=== PATIENT | male | born 1960 | race Caucasian/White ===

== ENCOUNTER 2018-03-07 11:29 | Inpatient (IN) | payer BC ==
--- NOTE | 2018-03-07 12:16 | RAD ---
HISTORY: chest pain COMPARISON: No prior. TECHNIQUE: Chest, one view. FINDINGS: Examination limited by habitus and hypoinflation. LUNGS: No focal consolidation. Please note that chest x-ray has limited sensitivity for the detection of pulmonary masses. PLEURA: No significant pleural effusion identified. No definite pneumothorax . CARDIOVASCULAR: Enlargement of the cardiomediastinal silhouette. No atherosclerotic calcification identified. OSSEOUS STRUCTURES: No acute osseous abnormality identified. VISUALIZED UPPER ABDOMEN: Unremarkable. OTHER FINDINGS: None. IMPRESSION: Hypoinflation. Enlargement of the cardiomediastinal silhouette. Mediastinal enlargement of unclear etiology. Recommend CT of the chest with IV contrast if indicated.
[2018-03-07 12:17] LABS: BASO # 0.1 K/uL (0.0-0.2); BASO % 0.7 % (0.0-2.0); EOS # 0.1 K/uL (0.0-0.7); EOS % 1.4 % (0.0-4.0); LYMPH # 2.4 K/uL (1.0-4.3); LYMPH % 23.7 % (20.0-40.0); MEAN CELL VOLUME 88.7 fL (80.0-94.0); MEAN CORPUSCULAR HEMOGLOBIN 29.9 pg (27.0-31.0); MEAN CORPUSCULAR HGB CONC 33.8 g/dL (33.0-37.0); MONO # 0.9 K/uL (0.0-0.8); NEUT # 6.6 K/uL (1.8-7.0); NEUT % 65.2 % (50.0-75.0); NRBC % 0.2 % (0.0-2.0); RBC 5.36 Mil/uL (4.40-5.90); RED CELL DISTRIBUTION WIDTH 13.4 % (11.5-14.5); WHITE BLOOD COUNT 10.1 K/uL (4.8-10.8)
[2018-03-07 12:43] LABS: ALB/GLOB RATIO 1.5 (1.0-2.1); ALBUMIN 4.3 g/dL (3.5-5.0); ALT/SGPT 28 U/L (21-72); AST/SGOT 28 U/L (17-59); BLOOD UREA NITROGEN 19 mg/dL (9-20); CALCIUM 9.6 mg/dl (8.6-10.4); GFR NON-AFRICAN AMERICAN > 60
[2018-03-07 12:54] LABS: B-TYPE NATRIURETIC PEPTIDE 216 pg/mL (0-900)
--- NOTE | 2018-03-07 12:54 | CT ---
Date of service: 03/07/2018 PROCEDURE: CT HEAD WITHOUT CONTRAST. HISTORY: r/o ICH COMPARISON: None available. TECHNIQUE: Axial computed tomography images were obtained through the head/brain without intravenous contrast. Radiation dose: Total exam DLP = 1197.76 mGy-cm. This CT exam was performed using one or more of the following dose reduction techniques: Automated exposure control, adjustment of the mA and/or kV according to patient size, and/or use of iterative reconstruction technique. FINDINGS: HEMORRHAGE: No intracranial hemorrhage. BRAIN: Tucker-white matter differentiation is preserved. There is no mass, mass effect or abnormal extra-axial fluid collection. There is no territorial infarction. The midline sagittal structures are normal. VENTRICLES: The ventricles are normal in size, shape and configuration. CALVARIUM: There is no calvarial fracture or extracranial soft tissue swelling. PARANASAL SINUSES: Predominantly clear. MASTOID AIR CELLS: Predominantly clear. OTHER FINDINGS: None. IMPRESSION: No acute intracranial abnormality.
--- NOTE | 2018-03-07 15:22 | C.PDOC ---
History Of Present Illness 57 y/o male sent to ED by PMD for evaluation of elevated blood pressure and chest pain since yesterday until this morning. Upon arrival to ED complains of minimal headache and admits to non compliant with oral blood pressure medicati on. Patient currently denies fever, chills, chest pain, cough, nausea, vomiting or any other complaints at this time. Chief Complaint (Nursing): Chest Pain History Per: Patient History/Exam Limitations: no limitations Onset/Duration Of Symptoms: Days Current Symptoms Are (Timing): Still Present Past Medical History Reviewed: Historical Data, Nursing Documentation, Vital Signs Vital Signs: Last Vital Signs Temp 98.5 F 03/07/18 11:39 Pulse 49 L 03/07/18 15:18 Resp 12 03/07/18 15:18 BP 220/120 H 03/07/18 15:18 Pulse Ox 100 03/07/18 15:18 - Medical History PMH: HTN Surgical History: No Surg Hx Family History: States: No Known Family Hx - Social History Hx Alcohol Use: No Hx Substance Use: No - Immunization History Hx Tetanus Toxoid Vaccination: No Hx Influenza Vaccination: No Hx Pneumococcal Vaccination: No Review Of Systems Constitutional: Negative for: Fever, Chills Cardiovascular: Negative for: Chest Pain Respiratory: Negative for: Cough, Shortness of Breath Gastrointestinal: Negative for: Nausea, Vomiting, Abdominal Pain Neurological: Positive for: Headache. Negative for: Weakness, Numbness Physical Exam - Physical Exam Appears: Non-toxic, No Acute Distress Skin: Warm, Dry, No Rash Head: Atraumatic, Normacephalic Eye(s): bilateral: Normal Inspection Oral Mucosa: Moist Neck: Normal ROM, Supple Cardiovascular: Rhythm Regular Respiratory: Normal Breath Sounds, No Rales, No Rhonchi, No Wheezing Gastrointestinal/Abdominal: Soft, No Tenderness, No Guarding, No Rebound Extremity: Normal ROM, No Pedal Edema, Capillary Refill (<2 seconds) Neurological/Psych: Oriented x3, Normal Speech, Normal Cognition ED Course And Treatment - Laboratory Results Result Diagrams: 03/07/18 12:09 03/07/18 12:09 ECG: Interpreted By Me, Viewed By Me ECG Rhythm: Sinus Rhythm Interpretation Of ECG: Left axis deviation, Normal intervals, Normal access Rate From EC (BPM) O2 Sat by Pulse Oximetry: 100 (RA) Pulse Ox Interpretation: Normal Progress Note: Spoke to Dr. Rivera, blood pressure down minimally, po medication therapy. 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 Disposition - Disposition Disposition: HOSPITALIZED Disposition Time: 13:25 Condition: FAIR - Clinical Impression Clinical Impression: Uncontrolled hypertension - Scribe Statement The provider has reviewed the documentation as recorded by the Scribconnor Sánchez All medical record entries made by the Scribe were at my direction and personally dictated by me. I have reviewed the chart and agree that the record accurately reflects my personal performance of the history, physical exam, me dical decision making, and the department course for this patient. I have also personally directed, reviewed, and agree with the discharge instructions and disposition.
--- NOTE | 2018-03-07 15:25 | CP.PCM.HP ---
History of Present Illness - History of Present Illness History of Present Illness: 57 y.o. male with PMH Hypertension came to clinic today due not feeling well and ran out of medication patient reports last chest pain was 2 am today , heavy in characyed no radiation . no dizzines, no syncope no abdominal paiun no vomiting no nausea. he took aspirin, and a BP medicine. He does not feel well, , did not go to work and and came to clinic , his BP was on the 200s repeatedly , no chest pain at that moment, was ambulatory , conversant - patient had another asoirin , and decide to send to ER , In ER, patient was given medications, and had difficulty controlling BP, heart rate ion the 50's, firts TAVON was negative,CT head negative, patient was admitted for further evaluation and management . PMH hypertension- with history of episodic Uncontrolled BP due to non compliance Social lives with family non ETOH non smoker Surgery Present on Admission - Present on Admission Any Indicators Present on Admission: No History of DVT/PE: No History of Uncontrolled Diabetes: No Urinary Catheter: No Decubitus Ulcer Present: No Review of Systems - Review of Systems Systems not reviewed;Unavailable: Unstable Vital Signs (very high BP ) - Constitutional Constitutional: absent: Chills, Fever, Weight Loss, Weakness - EENT Eyes: absent: Blurred Vision, Other Visual Disturbances Nose/Mouth/Throat: absent: Sinus Pain, Sinus Pressure, Sore Throat - Cardiovascular Cardiovascular: Chest Pain, Slow Heart Rate. absent: Dyspnea, Dyspnea on Exertion, Edema, Pedal Edema, Syncope - Respiratory Respiratory: absent: Cough, Dyspnea on Exertion, Pain on Inspiration, Chest Congestion - Gastrointestinal Gastrointestinal: absent: Abdominal Pain, Bloating, Constipation, Diarrhea, Dysphagia, Vomiting - Genitourinary Genitourinary: absent: Difficulty Urinating, Urinary Frequency - Musculoskeletal Musculoskeletal: absent: Abnormal Gait, Back Pain, Deformity, Joint Swelling, Limited Range of Motion, Stiffness - Integumentary Integumentary: absent: Rash, Skin Ulcer, Sores, Jaundice - Neurological Neurological: absent: Abnormal Gait, Abnormal Hearing, Abnormal Movements, Abnormal Speech, Behavioral Changes, Convulsions, Dizziness, Syncope, Other Visual Disturbances - Psychiatric Psychiatric: absent: Auditory Hallucinations, Behavioral Changes, Confusion, Depression - Endocrine Endocrine: absent: Cold Intolorance, Excessive Sweating, Polydipsia, Polyuria - Hematologic/Lymphatic Hematologic: absent: Easy Bleeding, Easy Bruising Past Patient History - Past Medical History & Family History Past Medical History?: Yes - Past Social History Smoking Status: Never Smoked - CARDIAC Hx Cardiac Disorders: Yes Hx Hypertension: Yes - PSYCHIATRIC Hx Substance Use: No - SURGICAL HISTORY Hx Surgeries: Yes Hx Orthopedic Surgery: Yes (LEFT TKR) Meds Allergies/Adverse Reactions: Allergies Allergy/AdvReac Type Severity Reaction Status Date / Time No Known Allergies Allergy Verified 03/07/18 11:43 Physical Exam - Constitutional Appears: Non-toxic (but is quiet , conversant answers questions appropiriately ), No Acute Distress - Head Exam Head Exam: ATRAUMATIC, NORMOCEPHALIC - Eye Exam Eye Exam: absent: Nystagmus - ENT Exam ENT Exam: Mucous Membranes Moist - Neck Exam Neck exam: Positive for: Full Rom. Negative for: Tenderness - Respiratory Exam Respiratory Exam: Clear to Auscultation Bilateral, NORMAL BREATHING PATTERN - Cardiovascular Exam Cardiovascular Exam: Bradycardia, REGULAR RHYTHM - GI/Abdominal Exam GI & Abdominal Exam: Normal Bowel Sounds, Soft. absent: Tenderness - Extremities Exam Extremities exam: Positive for: full ROM, joint swelling, normal inspection, pedal edema, pedal pulses present. Negative for: tenderness - Back Exam Back exam: NORMAL INSPECTION. absent: rash noted - Neurological Exam Neurological exam: Alert, Normal Gait, Oriented x3, Reflexes Normal - Psychiatric Exam Psychiatric exam: Normal Affect, Normal Mood - Skin Skin Exam: Intact, Normal Color Results - Vital Signs Recent Vital Signs: Last Vital Signs Temp 98.5 F 03/07/18 11:39 Pulse 49 L 03/07/18 15:18 Resp 12 03/07/18 15:18 BP 220/120 H 03/07/18 15:18 Pulse Ox 100 03/07/18 15:18 - Labs Result Diagrams: 03/08/18 05:19 03/08/18 05:19 Labs: Laboratory Results - last 24 hr 03/07/18 03/07/18 12:09 12:09 WBC 10.1 RBC 5.36 Hgb 16.0 Hct 47.5 MCV 88.7 MCH 29.9 MCHC 33.8 RDW 13.4 Plt Count 309 MPV 9.0 Neut % (Auto) 65.2 Lymph % (Auto) 23.7 [place] % (Auto) 9.0 Eos % (Auto) 1.4 Baso % (Auto) 0.7 Neut # (Auto) 6.6 Lymph # (Auto) 2.4 [place] # (Auto) 0.9 H Eos # (Auto) 0.1 Baso # (Auto) 0.1 Sodium 139 Potassium 4.2 Chloride 96 L Carbon Dioxide 31 H Anion Gap 16 BUN 19 Creatinine 1.1 Est GFR ( Amer) > 60 Est GFR (Non-Af Amer) > 60 Random Glucose 113 H Calcium 9.6 Total Bilirubin 0.5 AST 28 ALT 28 Alkaline Phosphatase 109 Troponin I 0.0590 NT-Pro-B Natriuret Pep 216 Total Protein 7.3 Albumin 4.3 Globulin 3.0 Albumin/Globulin Ratio 1.5 Assessment & Plan - Assessment and Plan (Free Text) Assessment: 57 y.o. with PMH Hypertension admitted for Accelerated Hypertension, uncontrolled hypertension from non compliance medication adjustment , Patient education Diet Chest pain- TAVON, echo cardio consult , Abnormal CXR enlargement of mediastinum-CT chest with contrast , Pulmo consult due to above concern will admit patient to ICU DVT prophylaxis GI prophylaxis Heart healthy diet - Date & Time Date: 03/07/18 Time: 15:40
[2018-03-07] MEDS ORDERED: Iodixanol 320 MG/ML 100 ML BOTTLE IV ONE (15:32)
--- NOTE | 2018-03-07 16:28 | CT ---
Date of service: 03/07/2018 CT Dissection protocol Indication: elevated BP, r/o dissection Technique: Contiguous axial images were obtained through the chest/abdomen/pelvis without and with intravenous contrast enhancement utilizing dissection protocol technique. Sagittal and coronal reconstructions were generated and reviewed. This CT exam was performed using 1 or more of the following dose reduction techniques: Automated exposure control, adjustment of the MAA and/or kV according to patient size, and/or use of iterative reconstruction technique. Radiation dose (DLP): 1944.62 MGy-cm. Contrast: 100 mL Visipaque IV Findings: Visualized portions of the inferior thyroid gland appear unremarkable. The mediastinal and hilar vascular structures appear within normal limits. The heart appears within normal limits of size. Dense coronary artery calcifications. No evidence of thoracic aorta dissection or aneurysmal dilatation. Uncoiled aorta likely resulted in widened appearance by chest x-ray. No focal consolidation. No pleural effusion. No pneumothorax. 5 mm right lower lobe calcified granuloma. Scattered atherosclerotic calcifications of the aorta and branches. There is normal course and contour of the abdominal aorta and common iliac arteries. The celiac artery origin appears patent. The superior mesenteric artery origin appears patent. The inferior mesenteric artery origin appears patent. Bilateral renal arteries appear patent. 5 mm hepatic hypodensity, too small to characterize; statistically likely cyst or hemangioma. Cholecystectomy clips. The pancreas, spleen, and adrenal glands appear unremarkable. The kidneys enhance symmetrically without evidence of hydronephrosis or obstructing renal calculi. No enlarged abdominal lymphadenopathy is identified. The stomach is nondistended. Visualized bowel loops appear within normal limits of caliber without evidence of obstruction. The appendix appears normal. No inflammatory changes are seen in the right lower quadrant to suggest acute appendicitis. No definite free air. Partially imaged urinary bladder appears grossly unremarkable. No significant pelvic free fluid is identified. Mild degenerative changes. Intervertebral disc space narrowing and vacuum disc phenomenon at L5-S1. Impression: No acute findings. Incidental findings as above.
--- NOTE | 2018-03-07 16:45 | CP.PCM.CON ---
History of Present Illness - History of Present Illness History of Present Illness: PGY-1 ICU Consult note for Dr. Armas Patient is a 57 year old male with PMHx of HTN and HLD presenting with hypertension. Patient states that he went to his PMD today for medication refill and was found to have a SBP above 200. Patient was instructed to go to the ED by his PMD. Patient admits to be non-compliant with his home medications. Patient denies headaches, dizziness, changes in vision, changes in hearing, fevers, chills, SOB, chest pain, palpitations, abdominal pain, nausea, vomiting, diarrhea, or urinary symptoms. PMD: Dr. Goins PMHx: HTN and HLD PSHx: Knee replacement surgery in 2017 Social Hx: denies smoking and drug use. Occasionally drinks beer. 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 Family Hx: Mom had HTN and of an WI at age 46 Allergies: NKDA Medications: ASA 81mg QD, Valsartan 5mg QD, Norvasc 10mg QD, Clonidine 0.1mg TID, Hydralazine 10mg QD, Tribenzor 40-10-25mg Review of Systems - Review of Systems All systems: reviewed and no additional remarkable complaints except Past Patient History - Past Medical History & Family History Past Medical History?: Yes - Past Social History Smoking Status: Never Smoked - CARDIAC Hx Cardiac Disorders: Yes Hx Hypertension: Yes - PSYCHIATRIC Hx Substance Use: No - SURGICAL HISTORY Hx Surgeries: Yes Hx Orthopedic Surgery: Yes (LEFT TKR) Meds Allergies/Adverse Reactions: Allergies Allergy/AdvReac Type Severity Reaction Status Date / Time No Known Allergies Allergy Verified 03/07/18 11:43 - Medications Medications: Current Medications Enoxaparin Sodium (Lovenox) 30 mg SC DAILY AMANDO Pantoprazole Sodium (Protonix Ec Tab) 40 mg PO DAILY AMANDO Physical Exam - Constitutional Appears: Well, Non-toxic, No Acute Distress - Head Exam Head Exam: ATRAUMATIC, NORMOCEPHALIC - Eye Exam Eye Exam: EOMI, Normal appearance - ENT Exam ENT Exam: Mucous Membranes Moist - Neck Exam Neck exam: Positive for: Normal Inspection - Respiratory Exam Respiratory Exam: Clear to Auscultation Bilateral, NORMAL BREATHING PATTERN. absent: Accessory Muscle Use, Decreased Breath Sounds, Rales, Rhonchi, Wheezes - Cardiovascular Exam Cardiovascular Exam: REGULAR RHYTHM, +S1, +S2. absent: Tachycardia, Gallop, Rubs, Systolic Murmur - GI/Abdominal Exam GI & Abdominal Exam: Normal Bowel Sounds, Soft. absent: Distended, Tenderness - Extremities Exam Extremities exam: Positive for: normal inspection - Neurological Exam Neurological exam: Alert, CN II-XII Intact, Oriented x3 - Psychiatric Exam Psychiatric exam: Normal Affect, Normal Mood - Skin Skin Exam: Dry, Intact, Normal Color, Warm Results - Vital Signs Recent Vital Signs: Last Vital Signs Temp 98.5 F 03/07/18 11:39 Pulse 49 L 03/07/18 15:18 Resp 12 03/07/18 15:18 BP 220/120 H 03/07/18 15:18 Pulse Ox 100 03/07/18 15:33 - Labs Result Diagrams: 03/07/18 12:09 03/07/18 12:09 Labs: Laboratory Results - last 24 hr 03/07/18 03/07/18 12:09 12:09 WBC 10.1 RBC 5.36 Hgb 16.0 Hct 47.5 MCV 88.7 MCH 29.9 MCHC 33.8 RDW 13.4 Plt Count 309 MPV 9.0 Neut % (Auto) 65.2 Lymph % (Auto) 23.7 [place] % (Auto) 9.0 Eos % (Auto) 1.4 Baso % (Auto) 0.7 Neut # (Auto) 6.6 Lymph # (Auto) 2.4 [place] # (Auto) 0.9 H Eos # (Auto) 0.1 Baso # (Auto) 0.1 Sodium 139 Potassium 4.2 Chloride 96 L Carbon Dioxide 31 H Anion Gap 16 BUN 19 Creatinine 1.1 Est GFR ( Amer) > 60 Est GFR (Non-Af Amer) > 60 Random Glucose 113 H Calcium 9.6 Total Bilirubin 0.5 AST 28 ALT 28 Alkaline Phosphatase 109 Troponin I 0.0590 NT-Pro-B Natriuret Pep 216 Total Protein 7.3 Albumin 4.3 Globulin 3.0 Albumin/Globulin Ratio 1.5 Assessment & Plan - Assessment and Plan (Free Text) Assessment: Patient is a 57 year old male with PMHx of HTN and HLD presenting with hypertension. Plan: Neuro: R/o CVA - Patient is AAO X 3 - Head CT: No acute intracranial abnormality Cardiovascular: HTN; non-compliant with home medications - Patient will be admitted to telemetry floor - On Admission: SBP: 230-240, DBP: 130-145 - HR: 50's - Cardiology consulted, Dr. Zuniga - In ED was given: ASA 325mg PO, Losartan 100mg PO, Norvasc 10mg PO, Clonidine 0.1mg and 0.2mg, Hydralazine 10mg and 25mg PO, HTZ 25mg PO - CT Chest/dissection studies: No acute findings. Incidental findings as above. - CXR: Hypoinflation. Enlargement of the cardiomediastinal silhouette. Mediastinal enlargement of unclear etiology. Pulm: - No acute issues Renal: - No acute issues - BUN/Cr: WNL GI: - No acute issues - AST/ALT: WNL Heme: - No acute issues Prophylaxis: - Protonix 40mg PO QD - Lovenox 30mg SC QD Case discussed with Dr. Chanda Lozoya, PGY-1
--- NOTE | 2018-03-07 16:54 | CP.PCM.CON ---
<Yazmin Chappell - Last Filed: 03/07/18 19:02> History of Present Illness - History of Present Illness History of Present Illness: Cardiology Consult Note This is a 57 year old male with past medical history of hypertension (non- compliant on 5 medications) and hyperlipidemia, referred to our service by Dr. Goins, for chest pain. Patient reports he is noncompliant with his medications, taking it when he remembers. He did not take it for the past two days as per wi fe. Patient started to have severe headaches associated with dizziness, nausea, yesterday, associated with sharp, intermittent chest pain. Today he went to visit his PMD, he was instructed to come to the ED due to his elevated blood pressures. Denied any current dizziness, confusion, chest pain, abdominal pain, or urinary complaints. PMHx: As noted above PSHx: Knee replacement surgery Meds: ASA 81mg QD, Valsartan 5mg QD, Norvasc 10mg QD, Clonidine 0.1mg TID, Hydralazine 10mg QD, Tribenzor 40-10-25mg All: NKDA SHx: Denied any smoking or illicit drug use, admits to social alcohol use: beer on weekends FHx: Significant for heart disease: hypertension and CT in mother (age 46) Review of Systems - Constitutional Constitutional: absent: Chills, Fever - EENT Eyes: Blurred Vision, Change in Vision Ears: absent: Ear Discharge, Ear Pain, Tinnitus Nose/Mouth/Throat: absent: Nasal Discharge, Dry Mouth, Hoarsness - Cardiovascular Cardiovascular: absent: Chest Pain, Chest Pain at Rest, Chest Pain with Activity, Dyspnea, Leg Edema, Pedal Edema, Radiating Pain - Respiratory Respiratory: absent: Cough, Dyspnea, Wheezing - Gastrointestinal Gastrointestinal: absent: Abdominal Pain, Nausea, Vomiting - Genitourinary Genitourinary: absent: Dysuria, Hematuria, Urinary Hesitance - Musculoskeletal Musculoskeletal: absent: Abnormal Gait, Back Pain - Neurological Neurological: absent: Abnormal Gait, Loss of Vision, Syncope, Weakness - Psychiatric Psychiatric: absent: Anxiety, Depression, Suicidal Ideation, Visual Hallucinations - Hematologic/Lymphatic Hematologic: absent: Easy Bleeding, Easy Bruising, Lymphadenopathy Past Patient History - Past Medical History & Family History Past Medical History?: Yes - Past Social History Smoking Status: Never Smoked - CARDIAC Hx Cardiac Disorders: Yes Hx Hypertension: Yes - PSYCHIATRIC Hx Substance Use: No - SURGICAL HISTORY Hx Surgeries: Yes Hx Orthopedic Surgery: Yes (LEFT TKR) Meds Allergies/Adverse Reactions: Allergies Allergy/AdvReac Type Severity Reaction Status Date / Time No Known Allergies Allergy Verified 03/07/18 11:43 - Medications Medications: Current Medications Enoxaparin Sodium (Lovenox) 30 mg SC DAILY [facility] Pantoprazole Sodium (Protonix Ec Tab) 40 mg PO DAILY [facility] Physical Exam - Constitutional Appears: No Acute Distress - Head Exam Head Exam: NORMAL INSPECTION, NORMOCEPHALIC - Eye Exam Eye Exam: EOMI, Normal appearance, PERRL Pupil Exam: NORMAL ACCOMODATION - ENT Exam ENT Exam: Mucous Membranes Moist - Respiratory Exam Respiratory Exam: Clear to Auscultation Bilateral, NORMAL BREATHING PATTERN. absent: Decreased Breath Sounds, Rales - Cardiovascular Exam Cardiovascular Exam: +S1, +S2. absent: JVD, Systolic Murmur - GI/Abdominal Exam GI & Abdominal Exam: Normal Bowel Sounds, Soft. absent: Distended, Tenderness - Extremities Exam Extremities exam: Positive for: normal inspection, pedal pulses present. Negative for: pedal edema, tenderness - Neurological Exam Neurological exam: Alert, Oriented x3 - Psychiatric Exam Psychiatric exam: Normal Affect, Normal Mood - Skin Skin Exam: Dry, Intact, Normal Color, Warm Results - Vital Signs Recent Vital Signs: Last Vital Signs Temp 98.5 F 03/07/18 11:39 Pulse 49 L 03/07/18 15:18 Resp 12 03/07/18 15:18 BP 220/120 H 03/07/18 15:18 Pulse Ox 100 03/07/18 15:33 - Labs Result Diagrams: 03/07/18 12:09 03/07/18 12:09 Labs: Laboratory Results - last 24 hr 03/07/18 03/07/18 12:09 12:09 WBC 10.1 RBC 5.36 Hgb 16.0 Hct 47.5 MCV 88.7 MCH 29.9 MCHC 33.8 RDW 13.4 Plt Count 309 MPV 9.0 Neut % (Auto) 65.2 Lymph % (Auto) 23.7 [place] % (Auto) 9.0 Eos % (Auto) 1.4 Baso % (Auto) 0.7 Neut # (Auto) 6.6 Lymph # (Auto) 2.4 [place] # (Auto) 0.9 H Eos # (Auto) 0.1 Baso # (Auto) 0.1 Sodium 139 Potassium 4.2 Chloride 96 L Carbon Dioxide 31 H Anion Gap 16 BUN 19 Creatinine 1.1 Est GFR ( Amer) > 60 Est GFR (Non-Af Amer) > 60 Random Glucose 113 H Calcium 9.6 Total Bilirubin 0.5 AST 28 ALT 28 Alkaline Phosphatase 109 Troponin I 0.0590 NT-Pro-B Natriuret Pep 216 Total Protein 7.3 Albumin 4.3 Globulin 3.0 Albumin/Globulin Ratio 1.5 Assessment & Plan - Assessment and Plan (Free Text) Plan: Hypertensive Urgency Imaging: - EKG: NSR 77BPM, left axis deviation - Head CT: unremarkable - CT Chest: no dissection noted Management: - Continue with home medications: ASA, Norvasc 10mg, Losartan 100mg, HCTZ 25mg, Hydralazine 10mg QID, Clonidine 0.1mg PO TID - Hydralazine 10mg IVP Q6H PRN if SBP > 160, hold if HR < 60 - Stressed the importance of medication compliance, as it puts patient at risk for stoke, CT, dissection, renal failure, etc. - ECHO: ordered, pending results Case discussed with Yazmin Hinojosa DO, PGY2 <Jose Zuniga - Last Filed: 03/07/18 22:15> Meds - Medications Medications: Current Medications Amlodipine Besylate (Norvasc) 10 mg PO DAILY [facility] Aspirin (Aspirin Chewable) 81 mg PO DAILY [facility] Clonidine HCl (Catapres) 0.1 mg PO TID [facility] Enoxaparin Sodium (Lovenox) 30 mg SC DAILY [facility] Hydralazine HCl (Apresoline) 10 mg IVP Q6H PRN PRN Reason: Systolic Blood Pressure Hydralazine HCl (Apresoline) 10 mg PO QID [facility] Hydrochlorothiazide (Hydrodiuril) 25 mg PO DAILY [facility] Losartan Potassium (Cozaar) 100 mg PO DAILY [facility] Pantoprazole Sodium (Protonix Ec Tab) 40 mg PO DAILY [facility] Results - Vital Signs Recent Vital Signs: Last Vital Signs Temp 97 F L 03/07/18 18:49 Pulse 90 03/07/18 18:49 Resp 20 03/07/18 18:49 BP 148/107 H 03/07/18 18:49 Pulse Ox 97 03/07/18 18:49 - Labs Result Diagrams: 03/07/18 12:09 03/07/18 12:09 Labs: Laboratory Results - last 24 hr 03/07/18 03/07/18 12:09 12:09 WBC 10.1 RBC 5.36 Hgb 16.0 Hct 47.5 MCV 88.7 MCH 29.9 MCHC 33.8 RDW 13.4 Plt Count 309 MPV 9.0 Neut % (Auto) 65.2 Lymph % (Auto) 23.7 [place] % (Auto) 9.0 Eos % (Auto) 1.4 Baso % (Auto) 0.7 Neut # (Auto) 6.6 Lymph # (Auto) 2.4 [place] # (Auto) 0.9 H Eos # (Auto) 0.1 Baso # (Auto) 0.1 Sodium 139 Potassium 4.2 Chloride 96 L Carbon Dioxide 31 H Anion Gap 16 BUN 19 Creatinine 1.1 Est GFR ( Amer) > 60 Est GFR (Non-Af Amer) > 60 Random Glucose 113 H Calcium 9.6 Total Bilirubin 0.5 AST 28 ALT 28 Alkaline Phosphatase 109 Troponin I 0.0590 NT-Pro-B Natriuret Pep 216 Total Protein 7.3 Albumin 4.3 Globulin 3.0 Albumin/Globulin Ratio 1.5 Assessment & Plan - Assessment and Plan (Free Text) Plan: Patient seen and evaluated in person by me. Plan of care d/w the medical doctor nuclear medicine and as documented
[2018-03-07 18:51] VITALS: RESP 20
[2018-03-07 23:06] LABS: CK-MB 0.56 ng/mL (0.0-3.38); TROPONIN I 0.049 ng/mL (0.00-0.120)
[2018-03-08 05:35] LABS: BASO # 0.1 K/uL (0.0-0.2); BASO % 0.6 % (0.0-2.0); EOS # 0.3 K/uL (0.0-0.7); EOS % 3.4 % (0.0-4.0); HEMOGLOBIN 15.6 g/dL (12.0-18.0); LYMPH # 2.8 K/uL (1.0-4.3); LYMPH % 27.1 % (20.0-40.0); MEAN CELL VOLUME 88.2 fL (80.0-94.0); MEAN CORPUSCULAR HEMOGLOBIN 29.9 pg (27.0-31.0); MEAN PLATELET VOLUME 9.1 fL (7.2-11.7); MONO # 0.9 K/uL (0.0-0.8); MONO % 9.1 % (0.0-10.0); NEUT # 6.1 K/uL (1.8-7.0); NEUT % 59.8 % (50.0-75.0); NRBC % 0.1 % (0.0-2.0); RBC 5.21 Mil/uL (4.40-5.90); RED CELL DISTRIBUTION WIDTH 13.5 % (11.5-14.5); WHITE BLOOD COUNT 10.2 K/uL (4.8-10.8)
[2018-03-08 06:00] LABS: CK-MB 0.42 ng/mL (0.0-3.38); TROPONIN I 0.033 ng/mL (0.00-0.120)
[2018-03-08 06:44] LABS: ALB/GLOB RATIO 1.4 (1.0-2.1); ALBUMIN 3.9 g/dL (3.5-5.0); ALT/SGPT 30 U/L (21-72); AST/SGOT 17 U/L (17-59); BLOOD UREA NITROGEN 18 mg/dL (9-20); CALCIUM 9.2 mg/dl (8.6-10.4); GFR NON-AFRICAN AMERICAN > 60; HDL CHOLESTEROL 27 mg/dL (30-70)
[2018-03-08 06:53] LABS: LDL CHOLESTEROL 152 mg/dL (0-129)
[2018-03-08] MEDS: Enoxaparin 30 mg Syringe SC SCH (10:26)
[2018-03-08] MEDS: Pantoprazole 40 mg EC Tab PO SCH (10:27)
--- NOTE | 2018-03-08 12:23 | CP.PCM.PN ---
Subjective - Date & Time of Evaluation Date of Evaluation: 03/08/18 Time of Evaluation: 12:40 - Subjective Subjective: chart review BP- noted , mild improvement no unusual event CT chest negative labs noted high cholesterol Discussion with cardio and Pulmo Renal called for further mangement patient seen denies any headcahe chest pain, dizziness discussion of condition and plan, further discussion of compliance ambulatory , feeding, Objective - Vital Signs/Intake and Output Vital Signs (last 24 hours): Temp Pulse Resp BP Pulse Ox 97.5 F L 58 L 20 177/104 H 98 03/08/18 08:03 03/08/18 08:03 03/08/18 08:03 03/08/18 08:03 03/08/18 08:03 - Medications Medications: Current Medications Amlodipine Besylate (Norvasc) 10 mg PO DAILY [facility] Last Admin: 03/08/18 10:27 Dose: 10 mg Aspirin (Aspirin Chewable) 81 mg PO DAILY [facility] Last Admin: 03/08/18 10:27 Dose: 81 mg Clonidine HCl (Catapres) 0.1 mg PO TID [facility] Last Admin: 03/08/18 10:27 Dose: 0.1 mg Enoxaparin Sodium (Lovenox) 30 mg SC DAILY [facility] Last Admin: 03/08/18 10:26 Dose: 30 mg Hydralazine HCl (Apresoline) 10 mg IVP Q6H PRN PRN Reason: Systolic Blood Pressure Hydralazine HCl (Apresoline) 100 mg PO BID [facility] Hydrochlorothiazide (Hydrodiuril) 25 mg PO DAILY [facility] Losartan Potassium (Cozaar) 100 mg PO DAILY [facility] Last Admin: 03/08/18 10:27 Dose: 100 mg Pantoprazole Sodium (Protonix Ec Tab) 40 mg PO DAILY [facility] Last Admin: 03/08/18 10:27 Dose: 40 mg - Labs Labs: 03/08/18 05:19 03/08/18 05:19 - Constitutional Appears: Non-toxic, No Acute Distress - Head Exam Head Exam: ATRAUMATIC, NORMOCEPHALIC - Eye Exam Eye Exam: Normal appearance. absent: Nystagmus - ENT Exam ENT Exam: Mucous Membranes Moist - Neck Exam Neck Exam: Full ROM. absent: Tenderness - Respiratory Exam Respiratory Exam: Clear to Ausculation Bilateral, NORMAL BREATHING PATTERN - Cardiovascular Exam Cardiovascular Exam: REGULAR RHYTHM - GI/Abdominal Exam GI & Abdominal Exam: Soft, Normal Bowel Sounds. absent: Tenderness - Extremities Exam Extremities Exam: Full ROM. absent: Joint Swelling, Pedal Edema, Tenderness - Back Exam Back Exam: Full ROM. absent: rash noted, tenderness - Neurological Exam Neurological Exam: Alert, Awake, Normal Gait, Oriented x3 - Psychiatric Exam Psychiatric exam: Normal Affect, Normal Mood - Skin Skin Exam: Intact, Normal Color. absent: Rash Assessment and Plan - Assessment and Plan (Free Text) Assessment: Patient with uncontrolled hypertension from non compliance, but with difficulty controlling despite medication adjustment Renal consulted for further evaluation currently asymptomatic, aware of condition Compliance discussion Work up for other etiology /pheo/ ongoing
--- NOTE | 2018-03-08 15:08 | CP.PCM.CON ---
History of Present Illness - History of Present Illness History of Present Illness: Nephrology Consultation Note: Assessment: Stable uncontrolled severe HTN with emergency, non compliance obesity chest pain Plan No acute need for renal replacement therapy at this time. Hypertension control with meds as ordered. Maintain hemodynamics stable. Avoid hypotension. Patient on ARB continue same. on multiple BP meds. increased hydralazine Monitor Input/Output, daily weights and renal function with basic metabolic panel Check urine analysis, spot protein/creatinine, albumin/creatinine ratio Secondary HTN work up with plasma renin/aldosterone, plasma metanephrine pt was educated abut need for compliance to meds and follow up. he was informed about risks and consequences of uncontrolled HTN including but not limited to stroke/paralysis, heart attack/failure, kidney failure/dialysis need, car diovascular disease disease and . Pt's son was in room during the discussion Dose meds/antibiotics for GFR>60 Glycemic control Further work up/management as per primary team Thanks for allowing me to participate in care of your patient. Will follow patient with you. Please call if any Qs Dr Mango Castaneda Office: [phone] Chief Complaint; high Blood pressure Reason for consult: HTN emergency HPI: Pt is a 57 M with hx of hypertension (years) but non compliant to meds presented with complaints of chest pain and found to have severe uncontrolled HTN Denies OTC/herbal meds or NSAIDs No recent iodinated contrast exposure. non smoker/ no etoh or drugs. denies tobacco or licorice/decongestants feels better now. had headache and blurry vision earlier ROS: Cardiovascular: improved chest pain. Pulmonary: No shortness of breath Gastrointestinal: denies abdominal pain No nausea. No vomiting. Genitourinary: No pain while urinating. Denies blood in urine. All other negative except as mentioned in HPI Physical Examination: General Appearance: Comfortable, in no acute respiratory distress, co-operative . Vitals reviewed and noted as below Head; Atraumatic, normocephalic ENT: no ulcers no thrush. Tongue is midline. Oropharynx: no rash or ulcers. EYES: Pupils are equal, round and reactive to light accommodation. Eye muscles and extraocular movement intact. Sclera is anicteric. Neck; supple no lymphadenopathy, no thyromegaly or bruit Lungs: Normal respiratory rate/effort. Breath sounds bilateral equal and clear Heart: Normal rate. s1s2 normal. No rub or gallop. Extremities: no edema. No varicose veins Neurological: Patient is alert, awake and oriented to person, place and time. No focal deficit. Strength bilateral appropriate and equal Skin: Warm and dry. Normal turgor. No rash. Palpitation: Normal elasticity for age Abdomen: Abdomen is soft. Bowel sounds +. There is no abdominal tenderness, no guarding/rigidity no organomegaly Psych: limited insight and normal affect/mood MSK: no joint tenderness or swelling. Digits and nails normal, no deformity : kidney or bladder not palpable Labs/imaging reviewed. Past medical history, past surgical history, family history, social history, allergy reviewed and noted as below Family hx: no hx of CKD. Rest non-contributory CTA: normal renal artery. normal adrenals tsh 1.9 Past Patient History - Past Medical History & Family History Past Medical History?: Yes - Past Social History Smoking Status: Never Smoked - CARDIAC Hx Cardiac Disorders: Yes Hx Hypertension: Yes - MUSCULOSKELETAL/RHEUMATOLOGICAL Hx Falls: No - PSYCHIATRIC Hx Substance Use: No - SURGICAL HISTORY Hx Surgeries: Yes Hx Orthopedic Surgery: Yes (LEFT TKR) - ANESTHESIA Hx Anesthesia: Yes Hx Anesthesia Reactions: No Hx Malignant Hyperthermia: No Has any member of the family had a problem w/ anesthesia?: No Meds Allergies/Adverse Reactions: Allergies Allergy/AdvReac Type Severity Reaction Status Date / Time No Known Allergies Allergy Verified 03/07/18 11:43 - Medications Medications: Current Medications Amlodipine Besylate (Norvasc) 10 mg PO DAILY [facility] Last Admin: 03/08/18 10:27 Dose: 10 mg Aspirin (Aspirin Chewable) 81 mg PO DAILY [facility] Last Admin: 03/08/18 10:27 Dose: 81 mg Clonidine HCl (Catapres) 0.1 mg PO TID [facility] Last Admin: 03/08/18 14:20 Dose: 0.1 mg Enoxaparin Sodium (Lovenox) 30 mg SC DAILY [facility] Last Admin: 03/08/18 10:26 Dose: 30 mg Hydralazine HCl (Apresoline) 100 mg PO BID [facility] Last Admin: 03/08/18 14:33 Dose: Not Given Hydrochlorothiazide (Hydrodiuril) 25 mg PO DAILY [facility] Last Admin: 03/08/18 10:57 Dose: 25 mg Losartan Potassium (Cozaar) 100 mg PO DAILY [facility] Last Admin: 03/08/18 10:27 Dose: 100 mg Pantoprazole Sodium (Protonix Ec Tab) 40 mg PO DAILY [facility] Last Admin: 03/08/18 10:27 Dose: 40 mg Rosuvastatin Calcium (Crestor) 10 mg PO [facility] Results - Vital Signs Recent Vital Signs: Last Vital Signs Temp 97.5 F L 03/08/18 08:03 Pulse 58 L 03/08/18 08:03 Resp 20 03/08/18 08:03 BP 177/104 H 03/08/18 08:03 Pulse Ox 98 03/08/18 08:03 - Labs Result Diagrams: 03/08/18 05:19 03/08/18 05:19 Labs: Laboratory Results - last 24 hr 03/07/18 03/08/18 03/08/18 22:24 05:19 05:19 WBC RBC Hgb Hct MCV MCH MCHC RDW Plt Count MPV Neut % (Auto) Lymph % (Auto) [place] % (Auto) Eos % (Auto) Baso % (Auto) Neut # (Auto) Lymph # (Auto) [place] # (Auto) Eos # (Auto) Baso # (Auto) Sodium 135 Potassium 3.7 Chloride 100 Carbon Dioxide 26 Anion Gap 14 BUN 18 Creatinine 1.2 Est GFR ( Amer) > 60 Est GFR (Non-Af Amer) > 60 Random Glucose 107 Hemoglobin A1c Calcium 9.2 Phosphorus 4.4 Magnesium 2.0 Total Bilirubin 0.7 AST 17 D ALT 30 Alkaline Phosphatase 121 Total Creatine Kinase 36 L 26 L CK-MB (Mass) 0.56 0.42 Troponin I 0.0490 0.0330 Total Protein 6.7 Albumin 3.9 Globulin 2.8 Albumin/Globulin Ratio 1.4 Triglycerides 227 H Cholesterol 220 H LDL Cholesterol Direct 152 H HDL Cholesterol 27 L Free T4 TSH 3rd Generation 1.95 03/08/18 03/08/18 03/08/18 05:19 05:19 05:19 WBC 10.2 RBC 5.21 Hgb 15.6 Hct 45.9 MCV 88.2 MCH 29.9 MCHC 34.0 RDW 13.5 Plt Count 286 MPV 9.1 Neut % (Auto) 59.8 Lymph % (Auto) 27.1 [place] % (Auto) 9.1 Eos % (Auto) 3.4 Baso % (Auto) 0.6 Neut # (Auto) 6.1 Lymph # (Auto) 2.8 [place] # (Auto) 0.9 H Eos # (Auto) 0.3 Baso # (Auto) 0.1 Sodium Potassium Chloride Carbon Dioxide Anion Gap BUN Creatinine Est GFR ( Amer) Est GFR (Non-Af Amer) Random Glucose Hemoglobin A1c 4.6 Calcium Phosphorus Magnesium Total Bilirubin AST ALT Alkaline Phosphatase Total Creatine Kinase CK-MB (Mass) Troponin I Total Protein Albumin Globulin Albumin/Globulin Ratio Triglycerides Cholesterol LDL Cholesterol Direct HDL Cholesterol Free T4 1.04 TSH 3rd Generation
[2018-03-08 16:43] LABS: CK-MB 0.57 ng/mL (0.0-3.38); TROPONIN I 0.025 ng/mL (0.00-0.120)
--- NOTE | 2018-03-08 17:32 | CP.PCM.CON ---
History of Present Illness - History of Present Illness History of Present Illness: Patient is a 57 year old male with PMHx of HTN and HLD who presented to the ED yesterday 03/07/18 with hypertension. Patient stated that he went to PMD (Dr. Goins) yesterday for medication refill and was found to have SBP above 200 in the office. Patient was sent to the ED by PMD. He admitted to being non- compliant with home medications. Today, he denies SOB, chest pain, cough, fevers, chills. PMD: Dr. Goins PMHx: HTN and HLD PSHx: Knee replacement surgery in 2017 Social Hx: Denies smoking and drug use. Occasionally drinks beer. 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 Enlargement of cardiomediastinal silhouette. ECHO ordered, pending results Past Patient History - Past Medical History & Family History Past Medical History?: Yes - Past Social History Smoking Status: Never Smoked - CARDIAC Hx Cardiac Disorders: Yes Hx Hypertension: Yes - MUSCULOSKELETAL/RHEUMATOLOGICAL Hx Falls: No - PSYCHIATRIC Hx Substance Use: No - SURGICAL HISTORY Hx Surgeries: Yes Hx Orthopedic Surgery: Yes (LEFT TKR) - ANESTHESIA Hx Anesthesia: Yes Hx Anesthesia Reactions: No Hx Malignant Hyperthermia: No Has any member of the family had a problem w/ anesthesia?: No Meds Allergies/Adverse Reactions: Allergies Allergy/AdvReac Type Severity Reaction Status Date / Time No Known Allergies Allergy Verified 03/07/18 11:43 - Medications Medications: Current Medications Amlodipine Besylate (Norvasc) 10 mg PO DAILY [facility] Last Admin: 03/08/18 10:27 Dose: 10 mg Aspirin (Aspirin Chewable) 81 mg PO DAILY [facility] Last Admin: 03/08/18 10:27 Dose: 81 mg Clonidine HCl (Catapres) 0.1 mg PO TID [facility] Last Admin: 03/08/18 14:20 Dose: 0.1 mg Enoxaparin Sodium (Lovenox) 30 mg SC DAILY [facility] Last Admin: 03/08/18 10:26 Dose: 30 mg Hydralazine HCl (Apresoline) 100 mg PO BID [facility] Last Admin: 03/08/18 14:33 Dose: Not Given Hydrochlorothiazide (Hydrodiuril) 25 mg PO DAILY [facility] Last Admin: 03/08/18 10:57 Dose: 25 mg Losartan Potassium (Cozaar) 100 mg PO DAILY [facility] Last Admin: 03/08/18 10:27 Dose: 100 mg Pantoprazole Sodium (Protonix Ec Tab) 40 mg PO DAILY [facility] Last Admin: 03/08/18 10:27 Dose: 40 mg Rosuvastatin Calcium (Crestor) 10 mg PO [facility] Results - Vital Signs Recent Vital Signs: Last Vital Signs Temp 98.0 F 03/08/18 15:05 Pulse 83 03/08/18 16:47 Resp 20 03/08/18 15:05 BP 146/93 H 03/08/18 15:05 Pulse Ox 96 03/08/18 15:05 - Labs Result Diagrams: 03/08/18 05:19 03/08/18 05:19 Labs: Laboratory Results - last 24 hr 03/07/18 03/08/18 03/08/18 22:24 05:19 05:19 WBC RBC Hgb Hct MCV MCH MCHC RDW Plt Count MPV Neut % (Auto) Lymph % (Auto) [place] % (Auto) Eos % (Auto) Baso % (Auto) Neut # (Auto) Lymph # (Auto) [place] # (Auto) Eos # (Auto) Baso # (Auto) Sodium 135 Potassium 3.7 Chloride 100 Carbon Dioxide 26 Anion Gap 14 BUN 18 Creatinine 1.2 Est GFR ( Amer) > 60 Est GFR (Non-Af Amer) > 60 Random Glucose 107 Hemoglobin A1c Calcium 9.2 Phosphorus 4.4 Magnesium 2.0 Total Bilirubin 0.7 AST 17 D ALT 30 Alkaline Phosphatase 121 Total Creatine Kinase 36 L 26 L CK-MB (Mass) 0.56 0.42 Troponin I 0.0490 0.0330 Total Protein 6.7 Albumin 3.9 Globulin 2.8 Albumin/Globulin Ratio 1.4 Triglycerides 227 H Cholesterol 220 H LDL Cholesterol Direct 152 H HDL Cholesterol 27 L Free T4 TSH 3rd Generation 1.95 12/04/18 12/04/18 12/04/18 05:19 05:19 05:19 WBC 10.2 RBC 5.21 Hgb 15.6 Hct 45.9 MCV 88.2 MCH 29.9 MCHC 34.0 RDW 13.5 Plt Count 286 MPV 9.1 Neut % (Auto) 59.8 Lymph % (Auto) 27.1 [place] % (Auto) 9.1 Eos % (Auto) 3.4 Baso % (Auto) 0.6 Neut # (Auto) 6.1 Lymph # (Auto) 2.8 [place] # (Auto) 0.9 H Eos # (Auto) 0.3 Baso # (Auto) 0.1 Sodium Potassium Chloride Carbon Dioxide Anion Gap BUN Creatinine Est GFR ( Amer) Est GFR (Non-Af Amer) Random Glucose Hemoglobin A1c 4.6 Calcium Phosphorus Magnesium Total Bilirubin AST ALT Alkaline Phosphatase Total Creatine Kinase CK-MB (Mass) Troponin I Total Protein Albumin Globulin Albumin/Globulin Ratio Triglycerides Cholesterol LDL Cholesterol Direct HDL Cholesterol Free T4 1.04 TSH 3rd Generation 03/08/18 15:05 WBC RBC Hgb Hct MCV MCH MCHC RDW Plt Count MPV Neut % (Auto) Lymph % (Auto) [place] % (Auto) Eos % (Auto) Baso % (Auto) Neut # (Auto) Lymph # (Auto) [place] # (Auto) Eos # (Auto) Baso # (Auto) Sodium Potassium Chloride Carbon Dioxide Anion Gap BUN Creatinine Est GFR ( Amer) Est GFR (Non-Af Amer) Random Glucose Hemoglobin A1c Calcium Phosphorus Magnesium Total Bilirubin AST ALT Alkaline Phosphatase Total Creatine Kinase 36 L CK-MB (Mass) 0.57 Troponin I 0.0250 Total Protein Albumin Globulin Albumin/Globulin Ratio Triglycerides Cholesterol LDL Cholesterol Direct HDL Cholesterol Free T4 TSH 3rd Generation
--- NOTE | 2018-03-08 18:58 | CARD ---
APPROVED REPORT Date of service: 03/08/2018 EXAM: Two-dimensional and M-mode echocardiogram with Doppler and color Doppler. Other Information Quality : GoodRhythm : INDICATION Chest Pain RISK FACTORS Hypertension 2D DIMENSIONS IVSd1.1 (0.7-1.1cm)LVDd4.6 (3.9-5.9cm) PWd1.3 (0.7-1.1cm)LA [id number] (18-58mL) LVDs3.2 (2.5-4.0cm)FS (%) 29.2 % LVEF (%)56.1 (>50%)LVEF (Fang's)55.78 % M-Mode DIMENSIONS Left Atrium (MM)4.37 (2.5-4.0cm)IVSd1.32 (0.7-1.1cm) Aortic Root3.42 (2.2-3.7cm)LVDd5.85 (4.0-5.6cm) Aortic Cusp Exc.2.30 (1.5-2.0cm)PWd1.14 (0.7-1.1cm) FS (%) 29 %LVDs4.17 (2.0-3.8cm) LVEF (%)55 (>50%) Mitral Valve MV E Goxvnlhp12.7cm/sMV A Sjdrladw226.5cm/sE/A ratio0.6 TDI Lateral E' Peak V5.13cm/sMedial E' Peak V3.06cm/sE/Lateral E'12.4 E/Medial E'20.8 Tricuspid Valve TR Peak Lpdgfajw527ac/sTR Peak Gr.[id number] LEFT VENTRICLE The left ventricle is normal size. There is mild concentric left ventricular hypertrophy. The Ejection Fraction is 55-60%. There is normal LV segmental wall motion. Transmitral Doppler flow pattern is Grade I-abnormal relaxation pattern. RIGHT VENTRICLE The right ventricle is normal size. The right ventricular systolic function is normal. ATRIA The left atrium is mildly dilated. The right atrium size is normal. The interatrial septum is intact with no evidence for an atrial septal defect. AORTIC VALVE The aortic valve is probably tri-cuspid. The aortic valve is mildly sclerotic. No aortic regurgitation is present. MITRAL VALVE The mitral valve is thickened but opens well. Mitral annular calcification is mild. There is no mitral valve regurgitation noted. TRICUSPID VALVE The tricuspid valve is normal in structure. There is trace tricuspid regurgitation. PULMONIC VALVE The pulmonary valve is normal in structure. GREAT VESSELS The aortic root is normal in size. The IVC is normal in size and collapses >50% with inspiration. PERICARDIAL EFFUSION There is no pericardial effusion. <Conclusion> The left ventricle is normal size. There is mild concentric left ventricular hypertrophy. The Ejection Fraction is 55-60%. Transmitral Doppler flow pattern is Grade I-abnormal relaxation pattern. The left atrium is mildly dilated. There is no pericardial effusion. The aortic valve is probably tri-cuspid. The aortic valve is mildly sclerotic. The mitral valve is thickened but opens well. Mitral annular calcification is mild.
--- NOTE | 2018-03-08 19:10 | CARD ---
APPROVED REPORT Date of service: 03/07/2018 EKG Measurement Heart [id number] <Conclusion> Normal sinus rhythm with sinus arrhythmia Left axis deviation Abnormal ECG
[2018-03-08 20:20] LABS: SQUAMOUS EPITHIAL 2 /hpf (0-5); URINE BILIRUBIN NEGATIVE (NEGATIVE); URINE BLOOD NEGATIVE (NEGATIVE); URINE CLARITY Clear (Clear); URINE COLOR Yellow (YELLOW); URINE GLUCOSE (UA) NORMAL (Normal); URINE LEUKOCYTE ESTERASE NEG Leu/uL (Negative); URINE PROTEIN 2+ mg/dL (NEGATIVE); URINE UROBILINOGEN NORMAL mg/dL (0.2-1.0)
--- NOTE | 2018-03-09 08:26 | CP.PCM.PN ---
Subjective - Date & Time of Evaluation Date of Evaluation: 03/09/18 Time of Evaluation: 08:23 - Subjective Subjective: chart review BP better no unusual event protein in the urine TAVON negative Patient seen feeding self no chest pain no paliptations, asymptomatic discussion of condition, discussion of compliance aware of condition and plan Objective - Vital Signs/Intake and Output Vital Signs (last 24 hours): Temp Pulse Resp BP Pulse Ox 97.6 F 61 20 151/96 H 98 03/09/18 08:00 03/09/18 08:00 03/09/18 08:00 03/09/18 08:00 03/09/18 08:00 Intake and Output: 03/09/18 03/09/18 06:59 18:59 Intake Total 480 Balance 480 - Medications Medications: Current Medications Amlodipine Besylate (Norvasc) 10 mg PO DAILY [facility] Last Admin: 03/08/18 10:27 Dose: 10 mg Aspirin (Aspirin Chewable) 81 mg PO DAILY [facility] Last Admin: 03/08/18 10:27 Dose: 81 mg Clonidine HCl (Catapres) 0.1 mg PO TID [facility] Last Admin: 03/08/18 20:13 Dose: 0.1 mg Enoxaparin Sodium (Lovenox) 30 mg SC DAILY [facility] Last Admin: 03/08/18 10:26 Dose: 30 mg Hydralazine HCl (Apresoline) 100 mg PO BID [facility] Last Admin: 03/08/18 17:58 Dose: 100 mg Hydrochlorothiazide (Hydrodiuril) 25 mg PO DAILY [facility] Last Admin: 03/08/18 10:57 Dose: 25 mg Losartan Potassium (Cozaar) 100 mg PO DAILY [facility] Last Admin: 03/08/18 10:27 Dose: 100 mg Pantoprazole Sodium (Protonix Ec Tab) 40 mg PO DAILY [facility] Last Admin: 03/08/18 10:27 Dose: 40 mg Rosuvastatin Calcium (Crestor) 10 mg PO HS [facility] Last Admin: 03/08/18 21:57 Dose: 10 mg - Labs Labs: 03/08/18 05:19 03/08/18 05:19 - Constitutional Appears: Non-toxic, No Acute Distress - Head Exam Head Exam: ATRAUMATIC, NORMOCEPHALIC - Eye Exam Eye Exam: Normal appearance, Nystagmus - ENT Exam ENT Exam: Mucous Membranes Moist - Neck Exam Neck Exam: Full ROM. absent: Tenderness - Respiratory Exam Respiratory Exam: Clear to Ausculation Bilateral, NORMAL BREATHING PATTERN - Cardiovascular Exam Cardiovascular Exam: REGULAR RHYTHM - GI/Abdominal Exam GI & Abdominal Exam: Soft, Normal Bowel Sounds. absent: Tenderness - Extremities Exam Extremities Exam: Full ROM, Normal Capillary Refill. absent: Joint Swelling, Pedal Edema - Back Exam Back Exam: Full ROM. absent: rash noted, tenderness - Neurological Exam Neurological Exam: Alert, Awake, Normal Gait, Oriented x3 - Psychiatric Exam Psychiatric exam: Normal Affect, Normal Mood - Skin Skin Exam: Intact, Normal Color. absent: Rash Assessment and Plan - Assessment and Plan (Free Text) Assessment: Patient with uncontrolled Hypertension, with slow response medication adjustment - with some improvement , stable asymptomatic Proteinuri-renal on case Renal US Ongoing investigation for other etiology , labs pending Cholesterolnemia- on statin Protein in the Urine- renal on case ongoing investigation on ppi on dvt prophylaxis further discussion on compliance ,diet TLC .fatal complications
[2018-03-09] MEDS ORDERED: Ergocalciferol 50,000 Intl Units Cap PO SCH (09:30)
[2018-03-09] MEDS: Enoxaparin 30 mg Syringe SC SCH (10:16)
[2018-03-09] MEDS: Pantoprazole 40 mg EC Tab PO SCH (10:16)
--- NOTE | 2018-03-09 11:37 | CARD ---
APPROVED REPORT Date of service: 03/08/2018 EKG Measurement Heart [id number] <Conclusion> Sinus bradycardia Left axis deviation Minimal voltage criteria for LVH, may be normal variant T wave abnormality, consider anterior ischemia Abnormal ECG
--- NOTE | 2018-03-09 11:37 | US ---
Date of service: 03/09/2018 PROCEDURE: Ultrasound of the Kidneys HISTORY: proteinuria, hypertension COMPARISON: Dissection CT study performed 03/07/18 TECHNIQUE: Sonogram of the kidneys. FINDINGS: RIGHT KIDNEY: Measures: 11.9 x 5.0 x 5.8 cm. Echogenic renal parenchyma. No obstructing calculus or hydronephrosis identified. 1.0 x 0.8 x 0.9 cm and 2.2 x 1.8 x 1.5 cm lower pole cysts. LEFT KIDNEY: Measures: 11.6 x 6.2 x 5.7 cm. Echogenic renal parenchyma. 0.6 x 0.5 x 0.7 cm left midpole cyst. 2.5 x 1.3 x 1.2 cm cyst versus region of focal dilatation of the collecting system. 0.9 x 0.8 x 0.8 cm lower pole cyst. Echogenic punctate focus is noted on the submitted images however not visualized on CT performed 03/07/18 and is presumed artifactual. OTHER FINDINGS: None. IMPRESSION: Bilateral renal cysts as above. Question focal dilatation of the left renal collecting system versus 2.5 cm cyst. Bilateral echogenic renal parenchyma may be seen in the setting of medical renal disease.
--- NOTE | 2018-03-09 15:58 | CP.PCM.PN ---
Subjective - Date & Time of Evaluation Date of Evaluation: 03/09/18 Time of Evaluation: 10:00 - Subjective Subjective: Nephrology Consultation Note: Assessment: Stable uncontrolled severe HTN with emergency, non compliance obesity chest pain Plan No acute need for renal replacement therapy at this time. Hypertension control with meds as ordered. Maintain hemodynamics stable. Avoid hypotension. Patient on ARB continue same. on multiple BP meds. increased hydralazine Monitor Input/Output, daily weights and renal function with basic metabolic panel Check urine analysis, spot protein/creatinine, albumin/creatinine ratio Secondary HTN work up with plasma renin/aldosterone, plasma metanephrine started weekly Vit D pt was educated abut need for compliance to meds and follow up. he was informed about risks and consequences of uncontrolled HTN including but not limited to stroke/paralysis, heart attack/failure, kidney failure/dialysis need, cardiovascular disease disease and . Pt's son was in room during the discussion Dose meds/antibiotics for GFR>60 Glycemic control Further work up/management as per primary team Thanks for allowing me to participate in care of your patient. Will follow denise ent with you. Please call if any Qs Dr Mango Castaneda Office: [phone] Chief Complaint; high Blood pressure Reason for consult: HTN emergency HPI: Pt is a 57 M with hx of hypertension (years) but non compliant to meds presented with complaints of chest pain and found to have severe uncontrolled HTN Denies OTC/herbal meds or NSAIDs No recent iodinated contrast exposure. non smoker/ no etoh or drugs. denies tobacco or licorice/decongestants feels better now. had headache and blurry vision earlier ROS: Cardiovascular: improved chest pain. Pulmonary: No shortness of breath Gastrointestinal: denies abdominal pain No nausea. No vomiting. Genitourinary: No pain while urinating. Denies blood in urine. All other negative except as mentioned in HPI Physical Examination: General Appearance: Comfortable, in no acute respiratory distress, co-operative . Vitals reviewed and noted as below Head; Atraumatic, normocephalic ENT: no ulcers no thrush. Tongue is midline. Oropharynx: no rash or ulcers. EYES: Pupils are equal, round and reactive to light accommodation. Eye muscles and extraocular movement intact. Sclera is anicteric. Neck; supple no lymphadenopathy, no thyromegaly or bruit Lungs: Normal respiratory rate/effort. Breath sounds bilateral equal and clear Heart: Normal rate. s1s2 normal. No rub or gallop. Extremities: no edema. No varicose veins Neurological: Patient is alert, awake and oriented to person, place and time. No focal deficit. Strength bilateral appropriate and equal Skin: Warm and dry. Normal turgor. No rash. Palpitation: Normal elasticity for age Abdomen: Abdomen is soft. Bowel sounds +. There is no abdominal tenderness, no guarding/rigidity no organomegaly Psych: limited insight and normal affect/mood MSK: no joint tenderness or swelling. Digits and nails normal, no deformity : kidney or bladder not palpable Labs/imaging reviewed. Past medical history, past surgical history, family history, social history, allergy reviewed and noted as below Family hx: no hx of CKD. Rest non-contributory CTA: normal renal artery. normal adrenals tsh 1.9 Objective - Vital Signs/Intake and Output Vital Signs (last 24 hours): Temp Pulse Resp BP Pulse Ox 97.6 F 64 20 156/84 H 98 03/09/18 08:00 03/09/18 08:43 03/09/18 08:00 03/09/18 14:00 03/09/18 08:00 Intake and Output: 03/09/18 03/09/18 06:59 18:59 Intake Total 480 Balance 480 - Medications Medications: Current Medications Amlodipine Besylate (Norvasc) 10 mg PO DAILY [facility] Last Admin: 03/09/18 10:14 Dose: 10 mg Aspirin (Aspirin Chewable) 81 mg PO DAILY [facility] Last Admin: 03/09/18 10:15 Dose: 81 mg Clonidine HCl (Catapres) 0.1 mg PO TID [facility] Last Admin: 03/09/18 14:13 Dose: 0.1 mg Enoxaparin Sodium (Lovenox) 30 mg SC DAILY [facility] Last Admin: 03/09/18 10:16 Dose: 30 mg Ergocalciferol (Drisdol 50,000 Intl Units Cap) 1 cap PO Q7D [facility] Last Admin: 03/09/18 10:14 Dose: 1 cap Hydralazine HCl (Apresoline) 100 mg PO BID [facility] Last Admin: 03/09/18 10:14 Dose: 100 mg Hydrochlorothiazide (Hydrodiuril) 25 mg PO DAILY [facility] Last Admin: 03/09/18 10:15 Dose: 25 mg Losartan Potassium (Cozaar) 100 mg PO DAILY [facility] Last Admin: 03/09/18 10:14 Dose: 100 mg Pantoprazole Sodium (Protonix Ec Tab) 40 mg PO DAILY [facility] Last Admin: 03/09/18 10:16 Dose: 40 mg Rosuvastatin Calcium (Crestor) 10 mg PO HS [facility] Last Admin: 03/08/18 21:57 Dose: 10 mg - Labs Labs: 03/08/18 05:19 03/08/18 05:19
--- NOTE | 2018-03-09 22:46 | CP.PCM.PN ---
Subjective - Date & Time of Evaluation Date of Evaluation: 03/09/18 Time of Evaluation: 17:20 - Subjective Subjective: Patient denies chest pain and dyspnea Review of Systems - Constitutional Constitutional: absent: Chills, Fever - EENT Eyes: Blurred Vision, Change in Vision Ears: absent: Ear Discharge, Ear Pain, Tinnitus Nose/Mouth/Throat: absent: Nasal Discharge, Dry Mouth, Hoarsness - Cardiovascular Cardiovascular: absent: Chest Pain, Chest Pain at Rest, Chest Pain with Activity, Dyspnea, Leg Edema, Pedal Edema, Radiating Pain - Respiratory Respiratory: absent: Cough, Dyspnea, Wheezing - Gastrointestinal Gastrointestinal: absent: Abdominal Pain, Nausea, Vomiting - Genitourinary Genitourinary: absent: Dysuria, Hematuria, Urinary Hesitance - Musculoskeletal Musculoskeletal: absent: Abnormal Gait, Back Pain - Neurological Neurological: absent: Abnormal Gait, Loss of Vision, Syncope, Weakness - Psychiatric Psychiatric: absent: Anxiety, Depression, Suicidal Ideation, Visual Hallucinations - Hematologic/Lymphatic Hematologic: absent: Easy Bleeding, Easy Bruising, Lymphadenopathy Physical Exam - Constitutional Appears: No Acute Distress - Head Exam Head Exam: NORMAL INSPECTION, NORMOCEPHALIC - Eye Exam Eye Exam: EOMI, Normal appearance, PERRL Pupil Exam: NORMAL ACCOMODATION - ENT Exam ENT Exam: Mucous Membranes Moist - Respiratory Exam Respiratory Exam: Clear to Auscultation Bilateral, NORMAL BREATHING PATTERN. absent: Decreased Breath Sounds, Rales - Cardiovascular Exam Cardiovascular Exam: +S1, +S2. absent: JVD, Systolic Murmur - GI/Abdominal Exam GI & Abdominal Exam: Normal Bowel Sounds, Soft. absent: Distended, Tenderness - Extremities Exam Extremities exam: Positive for: normal inspection, pedal pulses present. Negative for: pedal edema, tenderness - Neurological Exam Neurological exam: Alert, Oriented x3 - Psychiatric Exam Psychiatric exam: Normal Affect, Normal Mood - Skin Skin Exam: Dry, Intact, Normal Color, Warm Assessment & Plan - Assessment and Plan (Free Text) Plan: Hypertensive Urgency Imaging: - EKG: NSR 77BPM, left axis deviation - Head CT: unremarkable - CT Chest: no dissection noted ECHO: Normal EF HTN mgt as per nephrology Objective - Vital Signs/Intake and Output Vital Signs (last 24 hours): Temp Pulse Resp BP Pulse Ox 97.5 F L 75 20 141/91 H 98 03/09/18 15:00 03/09/18 16:00 03/09/18 15:00 03/09/18 15:00 03/09/18 15:00 Intake and Output: 03/09/18 03/10/18 18:59 06:59 Intake Total 400 Balance 400 - Medications Medications: Current Medications Amlodipine Besylate (Norvasc) 10 mg PO DAILY [facility] Last Admin: 03/09/18 10:14 Dose: 10 mg Aspirin (Aspirin Chewable) 81 mg PO DAILY [facility] Last Admin: 03/09/18 10:15 Dose: 81 mg Clonidine HCl (Catapres) 0.1 mg PO TID [facility] Last Admin: 03/09/18 18:39 Dose: 0.1 mg Enoxaparin Sodium (Lovenox) 30 mg SC DAILY [facility] Last Admin: 03/09/18 10:16 Dose: 30 mg Ergocalciferol (Drisdol 50,000 Intl Units Cap) 1 cap PO Q7D [facility] Last Admin: 03/09/18 10:14 Dose: 1 cap Hydralazine HCl (Apresoline) 100 mg PO BID [facility] Last Admin: 03/09/18 18:39 Dose: 100 mg Hydrochlorothiazide (Hydrodiuril) 25 mg PO DAILY [facility] Last Admin: 03/09/18 10:15 Dose: 25 mg Losartan Potassium (Cozaar) 100 mg PO DAILY [facility] Last Admin: 03/09/18 10:14 Dose: 100 mg Pantoprazole Sodium (Protonix Ec Tab) 40 mg PO DAILY [facility] Last Admin: 03/09/18 10:16 Dose: 40 mg Rosuvastatin Calcium (Crestor) 10 mg PO HS [facility] Last Admin: 03/09/18 22:14 Dose: 10 mg - Labs Labs: 03/08/18 05:19 03/08/18 05:19
[2018-03-10] MEDS: Pantoprazole 40 mg EC Tab PO SCH (10:21)
[2018-03-10] MEDS: Enoxaparin 30 mg Syringe SC SCH (10:23)
--- NOTE | 2018-03-10 12:41 | CP.PCM.PN ---
Subjective - Date & Time of Evaluation Date of Evaluation: 03/10/18 Time of Evaluation: 00:45 - Subjective Subjective: chart Review BP -some improvement goes up and down ECHo with good EF labs -proteinuria no unususual event Patient seen- no complaints, no chest pain no dizziness,no headache feeding- no nausea no abdominal pain no edema no palpitaions aware of condition and plan Objective - Vital Signs/Intake and Output Vital Signs (last 24 hours): Temp Pulse Resp BP Pulse Ox 97.9 F 76 20 180/99 H 99 03/10/18 07:40 03/10/18 07:57 03/10/18 07:40 03/10/18 07:40 03/10/18 07:40 Intake and Output: 03/10/18 03/10/18 06:59 18:59 Intake Total 410 Balance 410 - Medications Medications: Current Medications Amlodipine Besylate (Norvasc) 10 mg PO DAILY [facility] Last Admin: 03/10/18 10:21 Dose: 10 mg Aspirin (Aspirin Chewable) 81 mg PO DAILY [facility] Last Admin: 03/10/18 10:21 Dose: 81 mg Clonidine HCl (Catapres) 0.1 mg PO TID [facility] Last Admin: 03/10/18 10:22 Dose: 0.1 mg Enoxaparin Sodium (Lovenox) 30 mg SC DAILY [facility] Last Admin: 03/10/18 10:23 Dose: 30 mg Ergocalciferol (Drisdol 50,000 Intl Units Cap) 1 cap PO Q7D [facility] Last Admin: 03/09/18 10:14 Dose: 1 cap Hydralazine HCl (Apresoline) 100 mg PO BID [facility] Last Admin: 03/10/18 10:22 Dose: 100 mg Hydrochlorothiazide (Hydrodiuril) 25 mg PO DAILY [facility] Last Admin: 03/10/18 12:12 Dose: 25 mg Losartan Potassium (Cozaar) 100 mg PO DAILY [facility] Last Admin: 03/10/18 10:22 Dose: 100 mg Minoxidil (Minoxidil) 2.5 mg PO DAILY [facility] Last Admin: 03/10/18 12:12 Dose: 2.5 mg Pantoprazole Sodium (Protonix Ec Tab) 40 mg PO DAILY [facility] Last Admin: 03/10/18 10:21 Dose: 40 mg Rosuvastatin Calcium (Crestor) 10 mg PO HS [facility] Last Admin: 03/09/18 22:14 Dose: 10 mg - Labs Labs: 03/08/18 05:19 03/08/18 05:19 - Constitutional Appears: Non-toxic, No Acute Distress - Head Exam Head Exam: ATRAUMATIC, NORMOCEPHALIC - Eye Exam Eye Exam: Normal appearance. absent: Nystagmus - ENT Exam ENT Exam: Mucous Membranes Moist - Neck Exam Neck Exam: Full ROM. absent: Tenderness - Respiratory Exam Respiratory Exam: Clear to Ausculation Bilateral, NORMAL BREATHING PATTERN - Cardiovascular Exam Cardiovascular Exam: REGULAR RHYTHM - GI/Abdominal Exam GI & Abdominal Exam: Soft, Normal Bowel Sounds. absent: Tenderness - Extremities Exam Extremities Exam: Full ROM, Normal Capillary Refill, Normal Inspection. absent: Joint Swelling, Pedal Edema - Back Exam Back Exam: absent: rash noted, tenderness - Neurological Exam Neurological Exam: Alert, Awake, Normal Gait, Oriented x3 - Psychiatric Exam Psychiatric exam: Normal Affect, Normal Mood - Skin Skin Exam: Intact, Normal Color Assessment and Plan - Assessment and Plan (Free Text) Assessment: Patient with uncontrolled hypertension- adjusting medications accordingly, Education Proteinuria- Renal on case Dilated left renal collecting system, can be followed as out patient Cholesterolnemia- on statin on ppi dvt prophylaxis Plan for home accordingly
--- NOTE | 2018-03-10 15:03 | CP.PCM.PN ---
Subjective - Date & Time of Evaluation Date of Evaluation: 03/10/18 Time of Evaluation: 09:00 - Subjective Subjective: no chest pain no sob BP continue to fluctuate On hydralazine, Catapres, Minoxidil Objective - Vital Signs/Intake and Output Vital Signs (last 24 hours): Temp Pulse Resp BP Pulse Ox 97.9 F 76 20 157/88 H 99 03/10/18 07:40 03/10/18 07:57 03/10/18 07:40 03/10/18 12:00 03/10/18 07:40 Intake and Output: 03/10/18 03/10/18 06:59 18:59 Intake Total 410 Balance 410 - Medications Medications: Current Medications Amlodipine Besylate (Norvasc) 10 mg PO DAILY [facility] Last Admin: 03/10/18 10:21 Dose: 10 mg Aspirin (Aspirin Chewable) 81 mg PO DAILY [facility] Last Admin: 03/10/18 10:21 Dose: 81 mg Clonidine HCl (Catapres) 0.1 mg PO TID [facility] Last Admin: 03/10/18 10:22 Dose: 0.1 mg Enoxaparin Sodium (Lovenox) 30 mg SC DAILY [facility] Last Admin: 03/10/18 10:23 Dose: 30 mg Ergocalciferol (Drisdol 50,000 Intl Units Cap) 1 cap PO Q7D [facility] Last Admin: 03/09/18 10:14 Dose: 1 cap Hydralazine HCl (Apresoline) 100 mg PO Q8 [facility] Last Admin: 03/10/18 13:44 Dose: 100 mg Hydrochlorothiazide (Hydrodiuril) 25 mg PO DAILY [facility] Last Admin: 03/10/18 12:12 Dose: 25 mg Losartan Potassium (Cozaar) 100 mg PO DAILY [facility] Last Admin: 03/10/18 10:22 Dose: 100 mg Minoxidil (Minoxidil) 2.5 mg PO DAILY [facility] Last Admin: 03/10/18 12:12 Dose: 2.5 mg Pantoprazole Sodium (Protonix Ec Tab) 40 mg PO DAILY [facility] Last Admin: 03/10/18 10:21 Dose: 40 mg Rosuvastatin Calcium (Crestor) 10 mg PO HS [facility] Last Admin: 03/09/18 22:14 Dose: 10 mg - Labs Labs: 03/08/18 05:19 03/08/18 05:19 - Constitutional Appears: Non-toxic - Head Exam Head Exam: NORMAL INSPECTION - Eye Exam Eye Exam: absent: Scleral icterus - ENT Exam ENT Exam: Mucous Membranes Moist - Neck Exam Neck Exam: Full ROM - Respiratory Exam Respiratory Exam: Decreased Breath Sounds - Cardiovascular Exam Cardiovascular Exam: REGULAR RHYTHM - GI/Abdominal Exam GI & Abdominal Exam: Soft - Extremities Exam Extremities Exam: absent: Pedal Edema Assessment and Plan - Assessment and Plan (Free Text) Assessment: Uncontrolled HTN Plan: Increased Clonidine 0.2mg po TID Duplex scan of renal artery bilaterally
--- NOTE | 2018-03-10 15:05 | CP.PCM.PN ---
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 Hypertension control with meds as ordered. Maintain hemodynamics stable. Avoid hypotension. Patient on ARB continue same. on multiple BP meds. increased hydralazine. added minoxidil. plan to add aldactone in future depending upon plasma renin/aldosterone results Monitor Input/Output, daily weights and renal function with basic metabolic panel Secondary HTN work up with plasma renin/aldosterone, plasma metanephrine started weekly Vit D pt was educated abut need for compliance to meds and follow up. he was informed about risks and consequences of uncontrolled HTN including but not limited to stroke/paralysis, heart attack/failure, kidney failure/dialysis need, ca rdiovascular disease disease and . Pt's son was in room during the discussion Dose meds/antibiotics for GFR>60 Glycemic control Further work up/management as per primary team Thanks for allowing me to participate in care of your patient. Will follow patient with you. Please call if any Qs Dr Mango Castaneda Office: [phone] Chief Complaint; high Blood pressure Reason for consult: HTN emergency HPI: Pt is a 57 M with hx of hypertension (years) but non compliant to meds presented with complaints of chest pain and found to have severe uncontrolled HTN Denies OTC/herbal meds or NSAIDs No recent iodinated contrast exposure. non smoker/ no etoh or drugs. denies tobacco or licorice/decongestants feels better now. had headache and blurry vision earlier ROS: Cardiovascular: improved chest pain. Pulmonary: No shortness of breath Gastrointestinal: denies abdominal pain No nausea. No vomiting. Genitourinary: No pain while urinating. Denies blood in urine. All other negative except as mentioned in HPI Physical Examination: General Appearance: Comfortable, in no acute respiratory distress, co-operative . Vitals reviewed and noted as below Head; Atraumatic, normocephalic ENT: no ulcers no thrush. Tongue is midline. Oropharynx: no rash or ulcers. EYES: Pupils are equal, round and reactive to light accommodation. Eye muscles and extraocular movement intact. Sclera is anicteric. Neck; supple no lymphadenopathy, no thyromegaly or bruit Lungs: Normal respiratory rate/effort. Breath sounds bilateral equal and clear Heart: Normal rate. s1s2 normal. No rub or gallop. Extremities: no edema. No varicose veins Neurological: Patient is alert, awake and oriented to person, place and time. No focal deficit. Strength bilateral appropriate and equal Skin: Warm and dry. Normal turgor. No rash. Palpitation: Normal elasticity for age Abdomen: Abdomen is soft. Bowel sounds +. There is no abdominal tenderness, no guarding/rigidity no organomegaly Psych: limited insight and normal affect/mood MSK: no joint tenderness or swelling. Digits and nails normal, no deformity : kidney or bladder not palpable Labs/imaging reviewed. Past medical history, past surgical history, family history, social history, allergy reviewed and noted as below Family hx: no hx of CKD. Rest non-contributory CTA: normal renal artery. normal adrenals tsh 1.9 Objective - Vital Signs/Intake and Output Vital Signs (last 24 hours): Temp Pulse Resp BP Pulse Ox 97.9 F 76 20 157/88 H 99 03/10/18 07:40 03/10/18 07:57 03/10/18 07:40 03/10/18 12:00 03/10/18 07:40 Intake and Output: 03/10/18 03/10/18 06:59 18:59 Intake Total 410 Balance 410 - Medications Medications: Current Medications Amlodipine Besylate (Norvasc) 10 mg PO DAILY [facility] Last Admin: 03/10/18 10:21 Dose: 10 mg Aspirin (Aspirin Chewable) 81 mg PO DAILY [facility] Last Admin: 03/10/18 10:21 Dose: 81 mg Clonidine HCl (Catapres) 0.1 mg PO TID [facility] Last Admin: 03/10/18 10:22 Dose: 0.1 mg Enoxaparin Sodium (Lovenox) 30 mg SC DAILY [facility] Last Admin: 03/10/18 10:23 Dose: 30 mg Ergocalciferol (Drisdol 50,000 Intl Units Cap) 1 cap PO Q7D [facility] Last Admin: 03/09/18 10:14 Dose: 1 cap Hydralazine HCl (Apresoline) 100 mg PO Q8 [facility] Last Admin: 03/10/18 13:44 Dose: 100 mg Hydrochlorothiazide (Hydrodiuril) 25 mg PO DAILY [facility] Last Admin: 03/10/18 12:12 Dose: 25 mg Losartan Potassium (Cozaar) 100 mg PO DAILY [facility] Last Admin: 03/10/18 10:22 Dose: 100 mg Minoxidil (Minoxidil) 2.5 mg PO DAILY [facility] Last Admin: 03/10/18 12:12 Dose: 2.5 mg Pantoprazole Sodium (Protonix Ec Tab) 40 mg PO DAILY [facility] Last Admin: 03/10/18 10:21 Dose: 40 mg Rosuvastatin Calcium (Crestor) 10 mg PO HS [facility] Last Admin: 03/09/18 22:14 Dose: 10 mg - Labs Labs: 03/08/18 05:19 03/08/18 05:19
[2018-03-11 01:54] LABS: ALDO/PRA RATIO 12.8 Ratio (0.9-28.9)
[2018-03-11 04:12] VITALS: TEMP 97.8; O2SAT 99
--- NOTE | 2018-03-11 07:57 | PCM.URO ---
Urology Progress Note - Objective Lab Studies: Reviewed (gu plans: out pt follow up no gu intervention for now thank you for gu consult full note to be dictated) Lab Results Last 24 Hours: Laboratory Results - last 24 hr 03/08/18 03/08/18 03/08/18 15:06 19:57 20:01 Renin 0.94 Aldosterone 12 Aldosterone/Renin Ratio 12.8 Ur Random Creatinine 146 U Random Total Protein 979 H Urine Total Volume 103.7 Microalb/Creat Ratio 710 H Intake & Output: Intake & Output 03/10/18 03/11/18 03/11/18 18:59 06:59 18:59 Intake Total 480 Output Total 1 Balance 479 Intake: Oral 480 Output: Urine 1 Urine, Voided 1 Other: # Voids Urine, Voided 2 Vital Signs: Vital Signs - 24 hr 03/10/18 03/10/18 03/10/18 12:00 15:15 16:00 Temperature 97.4 F L Pulse Rate 98 H 89 Respiratory 20 Rate Blood Pressure 157/88 H 171/117 H O2 Sat by Pulse 98 Oximetry 03/10/18 03/10/18 03/10/18 17:44 19:42 23:10 Temperature 97.7 F Pulse Rate 109 H 102 H 69 Respiratory 20 Rate Blood Pressure 166/109 H 154/101 H 136/82 O2 Sat by Pulse 98 Oximetry 03/11/18 03/11/18 00:00 04:00 Temperature 97.8 F Pulse Rate 62 61 Respiratory 20 Rate Blood Pressure 152/97 H O2 Sat by Pulse 99 Oximetry
--- NOTE | 2018-03-11 08:22 | CP.PCM.PN ---
Subjective - Date & Time of Evaluation Date of Evaluation: 03/11/18 Time of Evaluation: 08:21 - Subjective Subjective: chart review Vitals better no unusual event no new labs, pending work up for [facility] as out patient patient seen asymptomatic aware of condition discussion of plan and home discussion of compliance Objective - Vital Signs/Intake and Output Vital Signs (last 24 hours): Temp Pulse Resp BP Pulse Ox 97.8 F 61 20 152/97 H 99 03/11/18 04:00 03/11/18 04:00 03/11/18 04:00 03/11/18 04:00 03/11/18 04:00 Intake and Output: 03/11/18 03/11/18 06:59 18:59 Intake Total 480 Output Total 1 Balance 479 - Medications Medications: Current Medications Amlodipine Besylate (Norvasc) 10 mg PO DAILY [facility] Last Admin: 03/10/18 10:21 Dose: 10 mg Aspirin (Aspirin Chewable) 81 mg PO DAILY [facility] Last Admin: 03/10/18 10:21 Dose: 81 mg Clonidine HCl (Catapres) 0.2 mg PO BID [facility] Enoxaparin Sodium (Lovenox) 30 mg SC DAILY [facility] Last Admin: 03/10/18 10:23 Dose: 30 mg Ergocalciferol (Drisdol 50,000 Intl Units Cap) 1 cap PO Q7D [facility] Last Admin: 03/09/18 10:14 Dose: 1 cap Hydralazine HCl (Apresoline) 100 mg PO Q8 [facility] Last Admin: 03/11/18 05:11 Dose: 100 mg Hydrochlorothiazide (Hydrodiuril) 50 mg PO DAILY [facility] Losartan Potassium (Cozaar) 100 mg PO DAILY [facility] Last Admin: 03/10/18 10:22 Dose: 100 mg Minoxidil (Minoxidil) 2.5 mg PO DAILY [facility] Last Admin: 03/10/18 12:12 Dose: 2.5 mg Pantoprazole Sodium (Protonix Ec Tab) 40 mg PO DAILY [facility] Last Admin: 03/10/18 10:21 Dose: 40 mg Rosuvastatin Calcium (Crestor) 10 mg PO HS [facility] Last Admin: 03/10/18 21:15 Dose: 10 mg - Labs Labs: 03/08/18 05:19 03/08/18 05:19 - Constitutional Appears: No Acute Distress - Head Exam Head Exam: ATRAUMATIC, NORMOCEPHALIC - Eye Exam Eye Exam: Normal appearance - ENT Exam ENT Exam: Mucous Membranes Moist - Neck Exam Neck Exam: Full ROM. absent: Tenderness - Respiratory Exam Respiratory Exam: Clear to Ausculation Bilateral, NORMAL BREATHING PATTERN - Cardiovascular Exam Cardiovascular Exam: REGULAR RHYTHM - GI/Abdominal Exam GI & Abdominal Exam: Soft, Normal Bowel Sounds. absent: Tenderness - Extremities Exam Extremities Exam: Full ROM. absent: Pedal Edema, Tenderness - Back Exam Back Exam: NORMAL INSPECTION - Neurological Exam Neurological Exam: Alert, Awake, Normal Gait, Oriented x3 - Psychiatric Exam Psychiatric exam: Normal Affect, Normal Mood - Skin Skin Exam: Intact, Normal Color. absent: Rash Assessment and Plan - Assessment and Plan (Free Text) Assessment: Patient with uncontrolled hypertension, Proteinuria- will follow up as out patient Cardio work up unremarkable Abnormal CT renal- will follow uo as out patient Pheo work up pending asmptomatic BP improving BP meds afjusted plan for home to RTC on wednesday
--- NOTE | 2018-03-11 08:22 | CP.PCM.DIS ---
Provider - Provider Date of Admission: 03/07/18 14:50 Attending physician: Lesly Goins MD Consults: 03/07/18 14:50 Cardiology Consult Routine Comment: Consulting Provider: Jose Zuniga Consulting Physician: Jose Zuniga Reason for Consult: chest pain, elevated BP 03/07/18 15:12 Physician Consult Routine Comment: Consulting Provider: Joaquin Chaudhry Consulting Physician: Joaquin Chaudhry Reason for Consult: abnormal ct 03/08/18 10:20 Nephrology Consult Routine Comment: Consulting Provider: Yasir Kilpatrick Consulting Physician: Yasir Kilpatrick Reason for Consult: uncontrolled hypertension 03/09/18 13:18 Urology Consult Routine Comment: Consulting Provider: Yumiko Locke Consulting Physician: Yumiko Locke Reason for Consult: renal cyst vs dilatation Time Spent in preparation of Discharge (in minutes): 30 Hospital Course - Lab Results Lab Results: Most Recent Lab Values WBC 10.2 K/uL (4.8-10.8) 03/08/18 05:19 RBC 5.21 Mil/uL (4.40-5.90) 03/08/18 05:19 Hgb 15.6 g/dL (12.0-18.0) 03/08/18 05:19 Hct 45.9 % (35.0-51.0) 03/08/18 05:19 MCV 88.2 fL (80.0-94.0) 03/08/18 05:19 MCH 29.9 pg (27.0-31.0) 03/08/18 05:19 MCHC 34.0 g/dL (33.0-37.0) 03/08/18 05:19 RDW 13.5 % (11.5-14.5) 03/08/18 05:19 Plt Count 286 K/uL (130-400) 03/08/18 05:19 MPV 9.1 fL (7.2-11.7) 03/08/18 05:19 Neut % (Auto) 59.8 % (50.0-75.0) 03/08/18 05:19 Lymph % (Auto) 27.1 % (20.0-40.0) 03/08/18 05:19 [place] % (Auto) 9.1 % (0.0-10.0) 03/08/18 05:19 Eos % (Auto) 3.4 % (0.0-4.0) 03/08/18 05:19 Baso % (Auto) 0.6 % (0.0-2.0) 03/08/18 05:19 Neut # (Auto) 6.1 K/uL (1.8-7.0) 03/08/18 05:19 Lymph # (Auto) 2.8 K/uL (1.0-4.3) 03/08/18 05:19 [place] # (Auto) 0.9 K/uL (0.0-0.8) H 03/08/18 05:19 Eos # (Auto) 0.3 K/uL (0.0-0.7) 03/08/18 05:19 Baso # (Auto) 0.1 K/uL (0.0-0.2) 03/08/18 05:19 Sodium 135 mmol/L (132-148) 03/08/18 05:19 Potassium 3.7 mmol/L (3.6-5.2) 03/08/18 05:19 Chloride 100 mmol/L (98-107) 03/08/18 05:19 Carbon Dioxide 26 mmol/L (22-30) 03/08/18 05:19 Anion Gap 14 (10-20) 03/08/18 05:19 BUN 18 mg/dL (9-20) 03/08/18 05:19 Creatinine 1.2 mg/dL (0.8-1.5) 03/08/18 05:19 Est GFR ( Amer) > 60 03/08/18 05:19 Est GFR (Non-Af Amer) > 60 03/08/18 05:19 Random Glucose 107 mg/dL (75-110) 03/08/18 05:19 Hemoglobin A1c 4.6 % (4.2-6.5) 03/08/18 05:19 Calcium 9.2 mg/dl (8.6-10.4) 03/08/18 05:19 Phosphorus 4.4 mg/dL (2.5-4.5) 03/08/18 05:19 Magnesium 2.0 mg/dL (1.6-2.3) 03/08/18 05:19 Total Bilirubin 0.7 mg/dL (0.2-1.3) 03/08/18 05:19 AST 17 U/L (17-59) D 03/08/18 05:19 ALT 30 U/L (21-72) 03/08/18 05:19 Alkaline Phosphatase 121 U/L (38-126) 03/08/18 05:19 Total Creatine Kinase 36 U/L (55-170) L 03/08/18 15:05 CK-MB (Mass) 0.57 ng/mL (0.0-3.38) 03/08/18 15:05 Troponin I 0.0250 ng/mL (0.00-0.120) 03/08/18 15:05 NT-Pro-B Natriuret Pep 216 pg/mL (0-900) 03/07/18 12:09 Total Protein 6.7 g/dL (6.3-8.3) 03/08/18 05:19 Albumin 3.9 g/dL (3.5-5.0) 03/08/18 05:19 Globulin 2.8 gm/dL (2.2-3.9) 03/08/18 05:19 Albumin/Globulin Ratio 1.4 (1.0-2.1) 03/08/18 05:19 Triglycerides 227 mg/dL (0-149) H 03/08/18 05:19 Cholesterol 220 mg/dL (0-199) H 03/08/18 05:19 LDL Cholesterol Direct 152 mg/dL (0-129) H 03/08/18 05:19 HDL Cholesterol 27 mg/dL (30-70) L 03/08/18 05:19 Renin 0.94 ng/mL/h (0.25-5.82) 03/08/18 15:06 Aldosterone 12 ng/dL 03/08/18 15:06 Aldosterone/Renin Ratio 12.8 Ratio (0.9-28.9) 03/08/18 15:06 25-OH Vitamin D Total 16.4 NG/ML (30.0-100.0) L 03/09/18 06:55 Free T4 1.04 ng/dL (0.78-2.19) 03/08/18 05:19 TSH 3rd Generation 1.95 mIU/L (0.46-4.68) 03/08/18 05:19 Urine Color Yellow (YELLOW) 03/08/18 19:57 Urine Clarity Clear (Clear) 03/08/18 19:57 Urine pH 6.0 (5.0-8.0) 03/08/18 19:57 Ur Specific [place] 1.020 (1.003-1.030) 03/08/18 19:57 Urine Protein 2+ mg/dL (NEGATIVE) H 03/08/18 19:57 Urine Glucose (UA) Normal mg/dL (Normal) 03/08/18 19:57 Urine Ketones Negative mg/dL (NEGATIVE) 03/08/18 19:57 Urine Blood Negative (NEGATIVE) 03/08/18 19:57 Urine Nitrate Negative (NEGATIVE) 03/08/18 19:57 Urine Bilirubin Negative (NEGATIVE) 03/08/18 19:57 Urine Urobilinogen Normal mg/dL (0.2-1.0) 03/08/18 19:57 Ur Leukocyte Esterase Neg Miah/uL (Negative) 03/08/18 19:57 Urine WBC (Auto) 1 /hpf (0-5) 03/08/18 19:57 Urine RBC (Auto) 1 /hpf (0-3) 03/08/18 19:57 Ur Squamous Epith Cells 2 /hpf (0-5) 03/08/18 19:57 Ur Random Creatinine 146 mg/dL (20-320) 03/08/18 20:01 U Random Total Protein 979 mg/g creat (22-128) H 03/08/18 19:57 Urine Total Volume 103.7 mg/dL 03/08/18 20:01 Microalb/Creat Ratio 710 (<30) H 03/08/18 20:01 - Hospital Course Hospital Course: admitted for uncontrolled hypertension with chest pain- cardio work up unremarkable, BP meds adjusted with slow response, Renal work up- labs pending for pheo, improved, CT abdom,en showed dilated renal system- will follow up as out patient Proteinurui- will follow up as out patient satble asymptomatic- for home compliance discussed - Date & Time of H&P Date of H&P: 03/11/18 Time of H&P: 15:34 Discharge Exam - Head Exam Head Exam: ATRAUMATIC, NORMOCEPHALIC Discharge Plan - Discharge Medications Prescriptions: hydrALAZINE [Apresoline] 100 mg PO Q8 30 Days #180 tab cloNIDine [Catapres] 0.1 mg PO TID #90 tab Rosuvastatin Calcium [Crestor] 10 mg PO HS #30 tab Ergocalciferol [Drisdol 50,000 Intl Units Cap] 1 cap PO Q7D #5 cap Losartan/Hydrochlorothiazide [Losartan-Hctz 100-25 mg Tab] 1 each PO DAILY #30 tablet Minoxidil 2.5 mg PO DAILY #30 tab amLODIPine [Norvasc] 10 mg PO DAILY #30 tab - Follow Up Plan Condition: FAIR Disposition: HOME/ ROUTINE Instructions: DASH Diet, Chest Pain (DC), Low Salt Diet, Amlodipine, Clonidine, Rosuvastatin, Hypertension (DC) Additional Instructions: Please follow up with Dr. Goins office on Wednesday Please follow up with Dr. Locke office - follow up visit- call and make appointment continue medication as per med. rec. Please last picker medication from [facility] Referrals: Lesly Goins MD [Medical Doctor] - Yumiko Locke MD [Staff Provider] -
[2018-03-11] MEDS: Enoxaparin 30 mg Syringe SC SCH (09:23)
[2018-03-11] MEDS: Pantoprazole 40 mg EC Tab PO SCH (09:24)
[2018-03-11 13:20] VITALS: BP 128/66; PULSE 63
--- NOTE | 2018-03-11 14:09 | CP.PCM.PN ---
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 Hypertension control with meds as ordered. Maintain hemodynamics stable. Avoid hypotension. Patient on ARB continue same. on multiple BP meds. increased hydralazine. added minoxidil. plan to add aldactone in future depending upon plasma renin/aldosterone results Monitor Input/Output, daily weights and renal function with basic metabolic panel Secondary HTN work up with plasma renin/aldosterone, plasma metanephrine started weekly Vit D pt was educated abut need for compliance to meds and follow up. he was informed about risks and consequences of uncontrolled HTN including but not limited to stroke/paralysis, heart attack/failure, kidney failure/dialysis need, ca rdiovascular disease disease and . Pt's son was in room during the discussion Dose meds/antibiotics for GFR>60 Glycemic control Further work up/management as per primary team Thanks for allowing me to participate in care of your patient. Will follow patient with you. Please call if any Qs Dr Mango Castaneda Office: [phone] Chief Complaint; high Blood pressure Reason for consult: HTN emergency HPI: Pt is a 57 M with hx of hypertension (years) but non compliant to meds presented with complaints of chest pain and found to have severe uncontrolled HTN Denies OTC/herbal meds or NSAIDs No recent iodinated contrast exposure. non smoker/ no etoh or drugs. denies tobacco or licorice/decongestants feels better now. had headache and blurry vision earlier ROS: Cardiovascular: improved chest pain. Pulmonary: No shortness of breath Gastrointestinal: denies abdominal pain No nausea. No vomiting. Genitourinary: No pain while urinating. Denies blood in urine. All other negative except as mentioned in HPI Physical Examination: General Appearance: Comfortable, in no acute respiratory distress, co-operative . Vitals reviewed and noted as below Head; Atraumatic, normocephalic ENT: no ulcers no thrush. Tongue is midline. Oropharynx: no rash or ulcers. EYES: Pupils are equal, round and reactive to light accommodation. Eye muscles and extraocular movement intact. Sclera is anicteric. Neck; supple no lymphadenopathy, no thyromegaly or bruit Lungs: Normal respiratory rate/effort. Breath sounds bilateral equal and clear Heart: Normal rate. s1s2 normal. No rub or gallop. Extremities: no edema. No varicose veins Neurological: Patient is alert, awake and oriented to person, place and time. No focal deficit. Strength bilateral appropriate and equal Skin: Warm and dry. Normal turgor. No rash. Palpitation: Normal elasticity for age Abdomen: Abdomen is soft. Bowel sounds +. There is no abdominal tenderness, no guarding/rigidity no organomegaly Psych: limited insight and normal affect/mood MSK: no joint tenderness or swelling. Digits and nails normal, no deformity : kidney or bladder not palpable Labs/imaging reviewed. Past medical history, past surgical history, family history, social history, allergy reviewed and noted as below Family hx: no hx of CKD. Rest non-contributory CTA: normal renal artery. normal adrenals tsh 1.9 Objective - Vital Signs/Intake and Output Vital Signs (last 24 hours): Temp Pulse Resp BP Pulse Ox 97.8 F 63 20 128/66 99 03/11/18 04:00 03/11/18 13:20 03/11/18 04:00 03/11/18 13:20 03/11/18 04:00 Intake and Output: 03/11/18 03/11/18 06:59 18:59 Intake Total 480 Output Total 1 Balance 479 - Labs Labs: 03/08/18 05:19 03/08/18 05:19
--- NOTE | 2018-03-12 13:15 | CP.PCM.PN ---
Subjective - Date & Time of Evaluation Date of Evaluation: 03/08/18 Time of Evaluation: 10:20 - Subjective Subjective: Patient denies chest pain and dyspnea Review of Systems - Constitutional Constitutional: absent: Chills, Fever - EENT Eyes: Blurred Vision, Change in Vision Ears: absent: Ear Discharge, Ear Pain, Tinnitus Nose/Mouth/Throat: absent: Nasal Discharge, Dry Mouth, Hoarsness - Cardiovascular Cardiovascular: absent: Chest Pain, Chest Pain at Rest, Chest Pain with Activity, Dyspnea, Leg Edema, Pedal Edema, Radiating Pain - Respiratory Respiratory: absent: Cough, Dyspnea, Wheezing - Gastrointestinal Gastrointestinal: absent: Abdominal Pain, Nausea, Vomiting - Genitourinary Genitourinary: absent: Dysuria, Hematuria, Urinary Hesitance - Musculoskeletal Musculoskeletal: absent: Abnormal Gait, Back Pain - Neurological Neurological: absent: Abnormal Gait, Loss of Vision, Syncope, Weakness - Psychiatric Psychiatric: absent: Anxiety, Depression, Suicidal Ideation, Visual Hallucinations - Hematologic/Lymphatic Hematologic: absent: Easy Bleeding, Easy Bruising, Lymphadenopathy Physical Exam - Constitutional Appears: No Acute Distress - Head Exam Head Exam: NORMAL INSPECTION, NORMOCEPHALIC - Eye Exam Eye Exam: EOMI, Normal appearance, PERRL Pupil Exam: NORMAL ACCOMODATION - ENT Exam ENT Exam: Mucous Membranes Moist - Respiratory Exam Respiratory Exam: Clear to Auscultation Bilateral, NORMAL BREATHING PATTERN. absent: Decreased Breath Sounds, Rales - Cardiovascular Exam Cardiovascular Exam: +S1, +S2. absent: JVD, Systolic Murmur - GI/Abdominal Exam GI & Abdominal Exam: Normal Bowel Sounds, Soft. absent: Distended, Tenderness - Extremities Exam Extremities exam: Positive for: normal inspection, pedal pulses present. Negative for: pedal edema, tenderness - Neurological Exam Neurological exam: Alert, Oriented x3 - Psychiatric Exam Psychiatric exam: Normal Affect, Normal Mood - Skin Skin Exam: Dry, Intact, Normal Color, Warm Assessment & Plan - Assessment and Plan (Free Text) Plan: Hypertensive Urgency Imaging: - EKG: NSR 77BPM, left axis deviation - Head CT: unremarkable - CT Chest: no dissection noted ECHO: Normal EF HTN mgt as per nephrology Objective - Vital Signs/Intake and Output Vital Signs (last 24 hours): Temp Pulse Resp BP Pulse Ox 97.8 F 63 20 128/66 99 03/11/18 04:00 03/11/18 13:20 03/11/18 04:00 03/11/18 13:20 03/11/18 04:00 - Labs Labs: 03/08/18 05:19 03/08/18 05:19
--- NOTE | 2018-03-14 12:12 | VASCLAB ---
Date of service: 03/11/2018 PROCEDURE: Ultrasonography renal arterial evaluation HISTORY: r/o renal artery stenosis COMPARISON: None available. TECHNIQUE: Real-time ultrasonography evaluation of the renal arteries were performed. Comparison is made to the aorta. Report prepared by MARTIN Dunn, RVT FINDINGS: AORTA: Patent. Peak systolic velocity 98 centimeters/second RIGHT RENAL ARTERY: Renal artery to aorta ratio: 1.7 * Proximal segment: Patent. Peak systolic velocity 150 centimeters/second * Mid segment: Patent. Peak systolic velocity 79 centimeters/second * Distal segment: Patent. Peak systolic velocity 72 centimeters/second Other findings: Right Kidney measures approximately 11.65 centimeters. LEFT RENAL ARTERY: Renal artery to aorta ratio: 1.5 * Proximal segment: Patent. Peak systolic velocity 150 centimeters/second * Mid segment: Patent. Peak systolic velocity 128 centimeters/second * Distal segment: Patent. Peak systolic velocity 121 centimeters/second Other findings: Left Kidney measures approximately 12.12 centimeters. IMPRESSION: No definite hemodynamically significant stenosis involving the renal arteries as visualized. Cystic structures noted in both kidneys.
== END 2018-03-11 14:05 | disposition home or self-care (01) | DRG 305 ==
LOC: C.ER 11:29 → C.9E 14:50 → C.6T 17:40
PROVIDERS: ADMIT Internal Medicine; ATTEND Internal Medicine
DX: I16.1 Hypertensive emergency (principal); E55.9 Vitamin D deficiency, unspecified; E66.9 Obesity, unspecified; E78.00 Pure hypercholesterolemia, unspecified; Z91.14 Patient's other noncompliance with medication regimen; I12.9 Hypertensive chronic kidney disease with stage 1 through stage 4 chronic kidney disease, or unspecified chronic kidney disease; N18.1 Chronic kidney disease, stage 1; Z96.659 Presence of unspecified artificial knee joint; Z82.49 Family history of ischemic heart disease and other diseases of the circulatory system

== ENCOUNTER 2018-03-22 16:46 | Inpatient (IN) | payer BC ==
--- NOTE | 2018-03-22 17:31 | C.PDOC ---
History Of Present Illness 57 yo male with PMH HTN and HLD came to ER c/o chest pain since 1am. 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 It lasted 10 min and self resolved. The pain returned at 5 am, he took a nap but when he woke up the pain persisted prompting ER visit. Pain is on the left side of his chest, no radiating. Pt notes that he has been compliant with his HTN medication today. Pt had an episode of chest pain on 03/07/18 but notes this feels different. At this time pt was admitted, had Echo (Normal LVF, EF 55-60%) and CT chest (no dissection). PMD: Dr. Rivera PSHx: Knee replacement surgery in 2017 Family Hx: Mom had HTN and of ND at age 46 <Delphine Rico - Last Filed: 03/22/18 19:51> <Elma Xavier - Last Filed: 03/22/18 19:49> History Per: Patient History/Exam Limitations: no limitations Onset/Duration Of Symptoms: Hrs Current Symptoms Are (Timing): Still Present <Delphine Rico - Last Filed: 03/22/18 19:51> Time Seen by Provider: 03/22/18 17:04 Chief Complaint (Nursing): Chest Pain Past Medical History Vital Signs: Last Vital Signs Temp 97.5 F L 03/22/18 16:58 Pulse 86 03/22/18 17:50 Resp 20 03/22/18 17:50 BP 176/114 H 03/22/18 17:50 Pulse Ox 99 03/22/18 18:53 <Elma Xavier - Last Filed: 03/22/18 19:49> Reviewed: Historical Data, Nursing Documentation, Vital Signs Vital Signs: Last Vital Signs Temp 97.5 F L 03/22/18 16:58 Pulse 98 H 03/22/18 16:58 Resp 18 03/22/18 16:58 BP 147/93 H 03/22/18 16:58 Pulse Ox 99 03/22/18 16:58 - Medical History PMH: HTN Other Surgeries: Knee Surgery Family History: States: ND (in Mother at age 46), Hypertension - Social History Hx Tobacco Use: No Hx Alcohol Use: No (social) Hx Substance Use: No - Immunization History Hx Tetanus Toxoid Vaccination: No Hx Influenza Vaccination: No Hx Pneumococcal Vaccination: No <NabilaeliuDelphine irder - Last Filed: 03/22/18 19:51> Review Of Systems Except As Marked, All Systems Reviewed And Found Negative. Constitutional: Positive for: Sweats. Negative for: Fever, Chills Eyes: Negative for: Vision Change Cardiovascular: Positive for: Chest Pain Respiratory: Negative for: Cough, Shortness of Breath Gastrointestinal: Negative for: Nausea, Vomiting Neurological: Negative for: Weakness, Numbness, Headache, Dizziness <Delphine Rico - Last Filed: 03/22/18 19:51> Physical Exam - Physical Exam Appears: Non-toxic, Other (Appears uncomfortable) Skin: Normal Color, Warm, Diaphoretic Head: Atraumatic, Normacephalic Eye(s): bilateral: Normal Inspection, EOMI Nose: Normal Oral Mucosa: Moist Neck: Normal ROM, Supple Chest: Symmetrical Cardiovascular: Rhythm Regular Respiratory: Normal Breath Sounds, No Accessory Muscle Use, No Rales, No Rh onchi, No Wheezing Gastrointestinal/Abdominal: Soft, No Tenderness, No Distention, No Guarding Extremity: Normal ROM Extremity: Bilateral: Atraumatic Neurological/Psych: Oriented x3, Normal Speech, Normal Cognition, Other (No focal deficits) <Delphine Rico - Last Filed: 03/22/18 19:51> ED Course And Treatment - Laboratory Results Result Diagrams: 03/22/18 17:34 03/22/18 17:34 Progress Note: 6:35PM- Spoke with Dr. Zuniga (cardio for patient during prior admission). Recommends IV heparin, IV tridil, Metoprolol and Plavix 300mg, and ICU admission. Recommends we discuss EKG with code heart. 6:40pm - Spoke with Dr. Barrett, EKGs sent digitally - he will call back after he reviews them. 7:10pm- Dr. Barrett states EKGs did not download corrrectly to his phone. EKGs resent. 7:18pm- Dr. Barrett states EKGs are not downloading to his phone correctly, will check them when he gets to a computer but unsure when he will be able to see computer (currently driving). 7:35pm- repeat EKG NSR 70 bpm, left axis deviation, 2mm ST elevation V2, 1mm elevations V3-V5. Patient currently states he is chest pain free, chest pain stopped approx 20 min ago. EKG sent again electronically to Dr. Barrett. Recommends call code heart. Dr. 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 <Elma Xavier - Last Filed: 03/22/18 19:49> - Laboratory Results Result Diagrams: 03/22/18 17:34 03/22/18 17:34 ECG: Interpreted By Me (Dr Xavier), Viewed By Me ECG Rhythm: Sinus Rhythm Interpretation Of ECG: T wave inversion V3, biphasic t wave inversion in v3-v6 Rate From EC O2 Sat by Pulse Oximetry: 99 (RA) Pulse Ox Interpretation: Normal - Radiology CXR: Interpreted by Me, Viewed By Me CXR Interpretation: Yes: No Acute Disease Progress Note: Blood work and CXR ordered. Patient treated with sublingual NTG and 325 mg aspirin. EKG obtained, showing questionable EKG changes, reviewed with ED attending Dr. Xavier. Patient also seen and evaluated by Dr. Xavier, who suggests serial EKGs with continual observation on monitoring manager. CXR shows no acute disease. Labs reviewed, (+) trop 0.49. Case discussed with Dr Zuniga. 640pm - CAse discussed with Dr Rivera, agreed upon admission. 640pm- ICU consult called, will evaluate. <Delphine Rico - Last Filed: 03/22/18 19:51> Disposition <lEma Xavier - Last Filed: 03/22/18 19:49> - Disposition Disposition Time: 19:07 <Delphine Rico - Last Filed: 03/22/18 19:51> - Disposition Disposition: HOSPITALIZED Condition: CRITICAL Forms: [employer] ([place]) - Clinical Impression Clinical Impression: STEMI (ST elevation myocardial infarction) - PA / [employer] SPECIALIST / Resident Statement MD/DO has reviewed & agrees with the documentation as recorded. - Scribe Statement The provider has reviewed the documentation as recorded by the Yairibconnor Dixon All medical record entries made by the Scribe were at my direction and personally dictated by me. I have reviewed the chart and agree that the record accurately reflects my personal performance of the history, physical exam, medical decision making, and the department course for this patient. I have also personally directed, reviewed, and agree with the discharge instructions and di sposition. <Delphine Rico - Last Filed: 03/22/18 19:51>
[2018-03-22 17:38] LABS: BASO # 0.1 K/uL (0.0-0.2); BASO % 0.6 % (0.0-2.0); EOS # 0.2 K/uL (0.0-0.7); HEMOGLOBIN 14.5 g/dL (12.0-18.0); LYMPH # 2.7 K/uL (1.0-4.3); MEAN CELL VOLUME 88.8 fL (80.0-94.0); MEAN CORPUSCULAR HEMOGLOBIN 29.3 pg (27.0-31.0); MEAN PLATELET VOLUME 8.9 fL (7.2-11.7); MONO % 9.4 % (0.0-10.0); NEUT # 7.1 K/uL (1.8-7.0); RBC 4.94 Mil/uL (4.40-5.90); RED CELL DISTRIBUTION WIDTH 13.2 % (11.5-14.5); WHITE BLOOD COUNT 11.1 K/uL (4.8-10.8)
[2018-03-22] MEDS ORDERED: Aspirin 325 mg EC Tablets PO STA ×2 (17:53→18:58)
[2018-03-22 18:04] LABS: ALB/GLOB RATIO 1.4 (1.0-2.1); ALBUMIN 4.1 g/dL (3.5-5.0); ALT/SGPT 30 U/L (21-72); AST/SGOT 29 U/L (17-59); BLOOD UREA NITROGEN 19 mg/dL (9-20); GFR NON-AFRICAN AMERICAN > 60
[2018-03-22 18:07] LABS: B-TYPE NATRIURETIC PEPTIDE 439 pg/mL (0-900); CK-MB 3.25 ng/mL (0.0-3.38)
--- NOTE | 2018-03-22 18:14 | RAD ---
HISTORY: SOB COMPARISON: Chest x-ray performed 03/07/18 TECHNIQUE: Chest, one view. FINDINGS: Examination limited by habitus. LUNGS: No focal consolidation. Please note that chest x-ray has limited sensitivity for the detection of pulmonary masses. PLEURA: No significant pleural effusion identified. No definite pneumothorax . CARDIOVASCULAR: Heart size appears within normal limits. Ectatic aorta. OSSEOUS STRUCTURES: Degenerative changes. VISUALIZED UPPER ABDOMEN: Unremarkable. OTHER FINDINGS: None. IMPRESSION: No focal consolidation.
[2018-03-22] MEDS ORDERED: Heparin25000 units/250ml 1/2NS 25,000 UNITS/250 ML BAG IV STA (18:37)
[2018-03-22] MEDS ORDERED: Metoprolol Succinate 25 mg XL Tab PO STA (18:39)
[2018-03-22] MEDS ORDERED: DiphenhydrAMINE 50 mg/ml Inj ONE (19:04)
[2018-03-22] MEDS ORDERED: Nitroglycerin 50mg in D5W 50 MG/250 ML BOTTLE IV ONE ×2 (19:34→20:29)
[2018-03-22] MEDS: Nitroglycerin 50mg in D5W 50 MG/250 ML BOTTLE IV STA ×2 (19:39→21:30)
[2018-03-22 19:41] LABS: INR 1.1; PROTHROMBIN TIME 12.2 SECONDS (9.7-12.2)
[2018-03-22] MEDS ORDERED: Iodixanol 320 MG/ML 200 ML BOTTLE IV ONE (20:13)
[2018-03-22] MEDS ORDERED: Eptifibatide 20 mg/10mL Inj IVP ONE (20:41)
--- NOTE | 2018-03-22 22:08 | CP.PCM.HP ---
History of Present Illness - History of Present Illness History of Present Illness: 57 y.o. with PMH Hypertension cholesterolnemia high sugar Proteinuria admitted due to chest pain , heavy feeling in the anterior chest, one yesterday and also today , with activity, and . burning in character,he reports relieved by drinking water .there was no associated nausea vomiting syncope, dizziness,SOB, patient came to clinic and advised patient to go to ER. in ER, patient has elevated troponin and code heart was subsequently called PMHas above recent admission due to uncontrolled hypertension- had hsitpry of non compliance Proteinuria Dilated Renal collecting system -has referral for further work up DJD knee s/p arthroscopy Present on Admission - Present on Admission Any Indicators Present on Admission: No History of DVT/PE: No History of Uncontrolled Diabetes: No Urinary Catheter: No Decubitus Ulcer Present: No Review of Systems - Constitutional Constitutional: absent: Fatigue, Lethargy, Weakness - EENT Nose/Mouth/Throat: absent: Nasal Congestion, Sore Throat - Cardiovascular Cardiovascular: Chest Pain. absent: Dyspnea, Dyspnea on Exertion, Palpitations, Syncope - Respiratory Respiratory: absent: Cough, Dyspnea on Exertion, Chest Congestion - Gastrointestinal Gastrointestinal: absent: Belching, Bloating, Change in Bowel Habits, Nausea, Vomiting - Genitourinary Genitourinary: absent: Difficulty Urinating, Dysuria, Flank Pain - Musculoskeletal Musculoskeletal: absent: Abnormal Gait, Muscle Weakness - Integumentary Integumentary: absent: Rash, Skin Ulcer, Sores, Jaundice - Neurological Neurological: absent: Abnormal Gait, Abnormal Hearing, Abnormal Movements, Behavioral Changes, Convulsions, Dizziness - Psychiatric Psychiatric: absent: Behavioral Changes, Confusion, Depression - Endocrine Endocrine: absent: Palpitations, Polydipsia, Polyphagia, Polyuria - Hematologic/Lymphatic Hematologic: absent: Easy Bleeding, Easy Bruising Past Patient History - Infectious Disease Hx of Infectious Diseases: None - Past Medical History & Family History Past Medical History?: Yes - Past Social History Smoking Status: Never Smoked - CARDIAC Hx Hypertension: Yes - MUSCULOSKELETAL/RHEUMATOLOGICAL Hx Falls: No - PSYCHIATRIC Hx Substance Use: No - SURGICAL HISTORY Hx Surgeries: Yes Hx Orthopedic Surgery: Yes (LEFT TKR) - ANESTHESIA Hx Anesthesia: Yes Hx Anesthesia Reactions: No Hx Malignant Hyperthermia: No Meds Allergies/Adverse Reactions: Allergies Allergy/AdvReac Type Severity Reaction Status Date / Time No Known Allergies Allergy Verified 03/07/18 11:43 Physical Exam - Constitutional Appears: Non-toxic, No Acute Distress (conversant ambulatory ) - Head Exam Head Exam: ATRAUMATIC, NORMOCEPHALIC - Eye Exam Eye Exam: Normal appearance - ENT Exam ENT Exam: Mucous Membranes Moist - Neck Exam Neck exam: Positive for: Full Rom. Negative for: Tenderness - Respiratory Exam Respiratory Exam: Clear to Auscultation Bilateral, NORMAL BREATHING PATTERN - Cardiovascular Exam Cardiovascular Exam: REGULAR RHYTHM - GI/Abdominal Exam GI & Abdominal Exam: Normal Bowel Sounds, Soft. absent: Tenderness - Extremities Exam Extremities exam: Positive for: full ROM. Negative for: joint swelling, pedal edema - Back Exam Back exam: FULL ROM - Neurological Exam Neurological exam: Alert, Normal Gait, Oriented x3 - Psychiatric Exam Psychiatric exam: Normal Affect, Normal Mood - Skin Skin Exam: Intact, Normal Color Results - Vital Signs Recent Vital Signs: Last Vital Signs Temp 97.5 F L 03/22/18 16:58 Pulse 81 03/22/18 20:15 Resp 16 03/22/18 20:15 BP 162/104 H 03/22/18 20:15 Pulse Ox 100 03/22/18 20:15 - Labs Result Diagrams: 03/22/18 17:34 03/22/18 17:34 Labs: Laboratory Results - last 24 hr 03/22/18 03/22/18 03/22/18 17:34 17:34 19:23 WBC 11.1 H RBC 4.94 Hgb 14.5 Hct 43.8 MCV 88.8 MCH 29.3 MCHC 33.0 RDW 13.2 Plt Count 324 MPV 8.9 Neut % (Auto) 64.0 Lymph % (Auto) 24.0 Wood % (Auto) 9.4 Eos % (Auto) 2.0 Baso % (Auto) 0.6 Neut # (Auto) 7.1 H Lymph # (Auto) 2.7 Wood # (Auto) 1.0 H Eos # (Auto) 0.2 Baso # (Auto) 0.1 PT 12.2 INR 1.1 APTT 34 Sodium 140 Potassium 4.2 Chloride 101 Carbon Dioxide 28 Anion Gap 15 BUN 19 Creatinine 0.9 Est GFR ( Amer) > 60 Est GFR (Non-Af Amer) > 60 Random Glucose 100 Calcium 10.0 Total Bilirubin 0.6 AST 29 ALT 30 Alkaline Phosphatase 117 Total Creatine Kinase 100 CK-MB (Mass) 3.25 Troponin I 0.4940 H* NT-Pro-B Natriuret Pep 439 Total Protein 7.1 Albumin 4.1 Globulin 2.9 Albumin/Globulin Ratio 1.4 Blood Type Antibody Screen 03/22/18 20:11 WBC RBC Hgb Hct MCV MCH MCHC RDW Plt Count MPV Neut % (Auto) Lymph % (Auto) Wood % (Auto) Eos % (Auto) Baso % (Auto) Neut # (Auto) Lymph # (Auto) Wood # (Auto) Eos # (Auto) Baso # (Auto) PT INR APTT Sodium Potassium Chloride Carbon Dioxide Anion Gap BUN Creatinine Est GFR ( Amer) Est GFR (Non-Af Amer) Random Glucose Calcium Total Bilirubin AST ALT Alkaline Phosphatase Total Creatine Kinase CK-MB (Mass) Troponin I NT-Pro-B Natriuret Pep Total Protein Albumin Globulin Albumin/Globulin Ratio Blood Type O POSITIVE Antibody Screen Negative Assessment & Plan - Assessment and Plan (Free Text) Assessment: Patient with Hypertension hypercholesterolnemia admitted for Chest pain with elevated Troponins STEMI-discussion with cardio- for further cardiac evaluation- Hypertension- with history of non compliance- and needed multiple Bp medications to control, and became compliant was controlled since discharge last week will continue meds and adjust accordingly Cholesterol continue meds GI prophylaxis DVT prophylaxis further cardiac medicaton adjustment as per cardio - Date & Time Date: 03/22/18 Time: 04:00
--- NOTE | 2018-03-22 23:51 | CP.PCM.CON ---
History of Present Illness - History of Present Illness History of Present Illness: 57 y.o. with PMH Hypertension,hyperlipidemia admitted with chest pain,UT and code heart initiated.Had Cardiac cath with 2 stents placed in LAD. Denies chest pain,palpitations c/o chest pain since 1am. 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 It lasted 10 min and self resolved. The pain returned at 5 am, he took a nap but when he woke up the pain persisted ,visited PMD who referred patient to the ER.Pain is on the left side of his chest, non radiating,no associated nausea,vomiting,diaphoresis recent admission due to uncontrolled hypertension , had Echo (Normal LVF, EF 55- 60%) and CT chest h/o Knee replacement surgery in 2017 Review of Systems - Constitutional Constitutional: absent: Anorexia, Chills, Headache - EENT Eyes: absent: Change in Vision Ears: absent: Tinnitus, Dizziness Nose/Mouth/Throat: absent: Sore Throat, Neck Pain - Cardiovascular Cardiovascular: Chest Pain. absent: Dyspnea, Leg Edema - Respiratory Respiratory: absent: Cough, Dyspnea - Gastrointestinal Gastrointestinal: absent: Abdominal Pain, Nausea, Vomiting - Genitourinary Genitourinary: absent: Dysuria, Nocturia - Musculoskeletal Musculoskeletal: absent: Back Pain - Integumentary Integumentary: absent: Bleeding Lesions, Rash - Neurological Neurological: absent: Dizziness, Focal Weakness - Endocrine Endocrine: absent: Palpitations - Hematologic/Lymphatic Hematologic: absent: Easy Bruising Past Patient History - Infectious Disease Hx of Infectious Diseases: None - Past Medical History & Family History Past Medical History?: Yes - Past Social History Smoking Status: Never Smoked Chewing Tobacco Use: No 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 Alcohol: None Home Situation {Lives}: With Family - CARDIAC Hx Hypertension: Yes - PULMONARY Hx Respiratory Disorders: No - NEUROLOGICAL Hx Neurological Disorder: No - HEENT Hx HEENT Problems: No - RENAL Hx Chronic Kidney Disease: No - ENDOCRINE/METABOLIC Hx Endocrine Disorders: No - HEMATOLOGICAL/ONCOLOGICAL Hx Blood Disorders: No - INTEGUMENTARY Hx Dermatological Problems: No - MUSCULOSKELETAL/RHEUMATOLOGICAL Hx Falls: No - GASTROINTESTINAL Hx Gastrointestinal Disorders: No - GENITOURINARY/GYNECOLOGICAL Hx Genitourinary Disorders: No - PSYCHIATRIC Hx Substance Use: No - SURGICAL HISTORY Hx Surgeries: Yes Hx Orthopedic Surgery: Yes (LEFT TKR) - ANESTHESIA Hx Anesthesia: Yes Hx Anesthesia Reactions: No Hx Malignant Hyperthermia: No Meds Allergies/Adverse Reactions: Allergies Allergy/AdvReac Type Severity Reaction Status Date / Time No Known Allergies Allergy Verified 03/07/18 11:43 - Medications Medications: Current Medications Acetaminophen (Tylenol 325mg Tab) 650 mg PO Q6 PRN PRN Reason: Pain, Mild (1-3) Amlodipine Besylate (Norvasc) 10 mg PO DAILY [facility] Aspirin (Aspirin Chewable) 81 mg PO DAILY [facility] Clonidine HCl (Catapres) 0.1 mg PO TID [facility] Clopidogrel Bisulfate (Plavix) 75 mg PO DAILY [facility] Docusate Sodium (Colace) 100 mg PO BID [facility] Famotidine (Pepcid) 20 mg PO BID [facility] Hydralazine HCl (Apresoline) 100 mg PO Q8 [facility] Hydrochlorothiazide (Hydrodiuril) 25 mg PO DAILY [facility] Heparin Sodium/Sodium Chloride (Heparin 39008 Units/250ml 1/2 Normal Saline) 25,000 units in 250 mls @ 11.648 mls/hr IV .[id number] STA; Protocol Stop: 03/23/18 16:04 Last Admin: 03/22/18 19:34 Dose: 11.648 mls/hr Nitroglycerin/Dextrose (Nitroglycerin 50 Mg/250 Ml D5w) 50 mg in 250 mls @ 1.5 mls/hr IV .Q24H STA; Protocol Stop: 03/23/18 18:38 Last Admin: 03/22/18 19:39 Dose: 1.5 mls/hr Losartan Potassium (Cozaar) 100 mg PO DAILY [facility] Metoprolol Succinate (Toprol Xl) 25 mg PO DAILY [facility] Minoxidil (Minoxidil) 2.5 mg PO DAILY [facility] Rosuvastatin Calcium (Crestor) 10 mg PO HS [facility] Physical Exam - Constitutional Appears: No Acute Distress - Head Exam Head Exam: absent: ATRAUMATIC, NORMAL INSPECTION, NORMOCEPHALIC - Eye Exam Eye Exam: absent: EOMI, PERRL - ENT Exam ENT Exam: absent: Mucous Membranes Moist - Neck Exam Neck exam: Positive for: Normal Inspection - Respiratory Exam Respiratory Exam: absent: Clear to Auscultation Bilateral - Cardiovascular Exam Cardiovascular Exam: REGULAR RHYTHM. absent: JVD - GI/Abdominal Exam GI & Abdominal Exam: Normal Bowel Sounds, Soft. absent: Tenderness - Extremities Exam Extremities exam: Positive for: pedal pulses present. Negative for: calf tenderness, pedal edema - Neurological Exam Neurological exam: Alert, Oriented x3 - Psychiatric Exam Psychiatric exam: Normal Affect - Skin Skin Exam: Intact, Normal Color Results - Vital Signs Recent Vital Signs: Last Vital Signs Temp 97.4 F L 03/22/18 23:00 Pulse 64 03/22/18 23:07 Resp 11 L 03/22/18 23:07 BP 119/80 03/22/18 23:07 Pulse Ox 98 03/22/18 23:07 - Labs Result Diagrams: 03/22/18 17:34 03/22/18 17:34 Labs: Laboratory Results - last 24 hr 03/22/18 03/22/18 03/22/18 17:34 17:34 19:23 WBC 11.1 H RBC 4.94 Hgb 14.5 Hct 43.8 MCV 88.8 MCH 29.3 MCHC 33.0 RDW 13.2 Plt Count 324 MPV 8.9 Neut % (Auto) 64.0 Lymph % (Auto) 24.0 [place] % (Auto) 9.4 Eos % (Auto) 2.0 Baso % (Auto) 0.6 Neut # (Auto) 7.1 H Lymph # (Auto) 2.7 [place] # (Auto) 1.0 H Eos # (Auto) 0.2 Baso # (Auto) 0.1 PT 12.2 INR 1.1 APTT 34 Sodium 140 Potassium 4.2 Chloride 101 Carbon Dioxide 28 Anion Gap 15 BUN 19 Creatinine 0.9 Est GFR ( Amer) > 60 Est GFR (Non-Af Amer) > 60 Random Glucose 100 Calcium 10.0 Total Bilirubin 0.6 AST 29 ALT 30 Alkaline Phosphatase 117 Total Creatine Kinase 100 CK-MB (Mass) 3.25 Troponin I 0.4940 H* NT-Pro-B Natriuret Pep 439 Total Protein 7.1 Albumin 4.1 Globulin 2.9 Albumin/Globulin Ratio 1.4 Blood Type Antibody Screen 03/22/18 20:11 WBC RBC Hgb Hct MCV MCH MCHC RDW Plt Count MPV Neut % (Auto) Lymph % (Auto) [place] % (Auto) Eos % (Auto) Baso % (Auto) Neut # (Auto) Lymph # (Auto) [place] # (Auto) Eos # (Auto) Baso # (Auto) PT INR APTT Sodium Potassium Chloride Carbon Dioxide Anion Gap BUN Creatinine Est GFR ( Amer) Est GFR (Non-Af Amer) Random Glucose Calcium Total Bilirubin AST ALT Alkaline Phosphatase Total Creatine Kinase CK-MB (Mass) Troponin I NT-Pro-B Natriuret Pep Total Protein Albumin Globulin Albumin/Globulin Ratio Blood Type O POSITIVE Antibody Screen Negative - EKG Data EKG Interpreted by: Myself - Imaging and Cardiology Chest x-ray Status: Image reviewed by me, Report reviewed by me Assessment & Plan - Assessment and Plan (Free Text) Assessment: 1.Acute [place] s/p cath and PCI brillinta,beta blockers,aspirin,Crestor on tridil 2.HTN-continue meds f/u BP 3.Hyperlipidemia on meds
[2018-03-22] MEDS ORDERED: Sodium Chloride 0.9% 500 ML IV ONE (23:53)
[2018-03-23 05:48] LABS: HEMOGLOBIN 13.3 g/dL (12.0-18.0); MEAN CORPUSCULAR HEMOGLOBIN 30.4 pg (27.0-31.0); MEAN CORPUSCULAR HGB CONC 34.2 g/dL (33.0-37.0); RBC 4.39 Mil/uL (4.40-5.90); RED CELL DISTRIBUTION WIDTH 13.2 % (11.5-14.5); WHITE BLOOD COUNT 9.9 K/uL (4.8-10.8)
[2018-03-23 06:07] LABS: ALB/GLOB RATIO 1.5 (1.0-2.1); ALBUMIN 3.7 g/dL (3.5-5.0); ALT/SGPT 35 U/L (21-72); AST/SGOT 54 U/L (17-59); BLOOD UREA NITROGEN 18 mg/dL (9-20); CALCIUM 9.1 mg/dl (8.6-10.4); GFR NON-AFRICAN AMERICAN > 60
[2018-03-23] MEDS ORDERED: Potassium Chloride 20 mEq ER Tab PO ONE (06:30)
--- NOTE | 2018-03-23 08:38 | CP.PCM.PN ---
Subjective - Date & Time of Evaluation Date of Evaluation: 03/23/18 Time of Evaluation: 08:34 - Subjective Subjective: chart review vitals stable afebrile had cardiac cath and stent last night patient seen no chest pain no complaints he is aware of his condition discussion of compliance Objective - Vital Signs/Intake and Output Vital Signs (last 24 hours): Temp Pulse Resp BP Pulse Ox 98 F 61 14 127/78 97 03/23/18 04:00 03/23/18 08:30 03/23/18 08:30 03/23/18 07:57 03/23/18 08:30 Intake and Output: 03/23/18 03/23/18 06:59 18:59 Intake Total 672 100 Output Total 1600 Balance -928 100 - Medications Medications: Current Medications Acetaminophen (Tylenol 325mg Tab) 650 mg PO Q6 PRN PRN Reason: Pain, Mild (1-3) Last Admin: 03/23/18 00:08 Dose: 650 mg Amlodipine Besylate (Norvasc) 10 mg PO DAILY [facility] Aspirin (Aspirin Chewable) 81 mg PO DAILY [facility] Clonidine HCl (Catapres) 0.1 mg PO TID [facility] Docusate Sodium (Colace) 100 mg PO BID [facility] Famotidine (Pepcid) 20 mg PO BID [facility] Hydralazine HCl (Apresoline) 100 mg PO Q8 [facility] Last Admin: 03/23/18 06:13 Dose: Not Given Hydrochlorothiazide (Hydrodiuril) 25 mg PO DAILY [facility] Nitroglycerin/Dextrose (Nitroglycerin 50 Mg/250 Ml D5w) 50 mg in 250 mls @ 1.5 mls/hr IV .Q24H STA; Protocol Stop: 03/23/18 18:38 Last Titration: 03/23/18 06:00 Dose: 0 mcg/min, 0 mls/hr Sodium Chloride (Sodium Chloride 0.9%) 500 mls @ 50 mls/hr IV .Q10H ONE Stop: 03/23/18 09:52 Last Admin: 03/23/18 00:12 Dose: 50 mls/hr Losartan Potassium (Cozaar) 100 mg PO DAILY [facility] Metoprolol Succinate (Toprol Xl) 25 mg PO DAILY [facility] Minoxidil (Minoxidil) 2.5 mg PO DAILY [facility] Rosuvastatin Calcium (Crestor) 10 mg PO HS [facility] Ticagrelor (Brilinta) 90 mg PO BID [facility] - Labs Labs: 03/23/18 05:37 03/23/18 05:35 PT 12.2 SECONDS (9.7-12.2) 03/22/18 19:23 INR 1.1 03/22/18 19:23 APTT 34 SECONDS (21-34) 03/22/18 19:23 - Constitutional Appears: No Acute Distress - Head Exam Head Exam: ATRAUMATIC, NORMOCEPHALIC - Eye Exam Eye Exam: Normal appearance. absent: Nystagmus - ENT Exam ENT Exam: Mucous Membranes Moist - Respiratory Exam Respiratory Exam: Clear to Ausculation Bilateral, NORMAL BREATHING PATTERN - Cardiovascular Exam Cardiovascular Exam: REGULAR RHYTHM - GI/Abdominal Exam GI & Abdominal Exam: Soft, Normal Bowel Sounds - Extremities Exam Extremities Exam: Full ROM. absent: Joint Swelling, Pedal Edema - Neurological Exam Neurological Exam: Alert, Awake, Normal Gait, Oriented x3 - Psychiatric Exam Psychiatric exam: Normal Affect, Normal Mood - Skin Skin Exam: Intact, Normal Color Assessment and Plan - Assessment and Plan (Free Text) Assessment: Patient with Hypertension admitted for chest pain=STEMI- post cardiac cath and stent currently chest pain free cardiac medication adjustments Hypertension currently controlled with multiple BP meds on statin, GI prophylaxis further observation/cardiac plan
[2018-03-23] MEDS ORDERED: Enoxaparin 40 mg Syringe SC SCH (10:00)
[2018-03-23] MEDS ORDERED: Metoprolol Succinate 25 mg XL Tab PO SCH ×2 (10:00)
[2018-03-23] MEDS ORDERED: LOSARTAN PO SCH (10:00)
[2018-03-23] MEDS ORDERED: HYDROCHLOROTHIAZIDE PO SCH (10:00)
--- NOTE | 2018-03-23 10:11 | CP.PCM.CON ---
History of Present Illness - History of Present Illness History of Present Illness: 57 years old male admitted due to chest pain , heavy feeling in the anterior chest, for 2 days , with activity, and . burning in character,he reports relieved by drinking water .there was no associated nausea vomiting syncope, dizziness,SOB, patient came to clinic and advised patient to go to ER. in ER, patient has elevated troponin and code heart was subsequently called. Patient had cardiac catheterization with successful PTCA/Stent of LAD. Denies any chest pain now. 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 Alcohol: None Home Situation {Lives}: With Family - CARDIAC Hx Hypertension: Yes - PULMONARY Hx Respiratory Disorders: No - NEUROLOGICAL Hx Neurological Disorder: No - HEENT Hx HEENT Problems: No - RENAL Hx Chronic Kidney Disease: No - ENDOCRINE/METABOLIC Hx Endocrine Disorders: No - HEMATOLOGICAL/ONCOLOGICAL Hx Blood Disorders: No - INTEGUMENTARY Hx Dermatological Problems: No - MUSCULOSKELETAL/RHEUMATOLOGICAL Hx Falls: No - GASTROINTESTINAL Hx Gastrointestinal Disorders: No - GENITOURINARY/GYNECOLOGICAL Hx Genitourinary Disorders: No - PSYCHIATRIC Hx Substance Use: No - SURGICAL HISTORY Hx Surgeries: Yes Hx Orthopedic Surgery: Yes (LEFT TKR) - ANESTHESIA Hx Anesthesia: Yes Hx Anesthesia Reactions: No Hx Malignant Hyperthermia: No Meds Allergies/Adverse Reactions: Allergies Allergy/AdvReac Type Severity Reaction Status Date / Time No Known Allergies Allergy Verified 03/07/18 11:43 - Medications Medications: Current Medications Acetaminophen (Tylenol 325mg Tab) 650 mg PO Q6 PRN PRN Reason: Pain, Mild (1-3) Last Admin: 03/23/18 00:08 Dose: 650 mg Amlodipine Besylate (Norvasc) 10 mg PO DAILY [facility] Aspirin (Aspirin Chewable) 81 mg PO DAILY [facility] Last Admin: 03/23/18 09:11 Dose: 81 mg Clonidine HCl (Catapres) 0.1 mg PO TID [facility] Last Admin: 03/23/18 09:11 Dose: 0.1 mg Docusate Sodium (Colace) 100 mg PO BID [facility] Last Admin: 03/23/18 09:11 Dose: 100 mg Famotidine (Pepcid) 20 mg PO BID [facility] Last Admin: 03/23/18 09:12 Dose: 20 mg Hydralazine HCl (Apresoline) 100 mg PO Q8 [facility] Last Admin: 03/23/18 06:13 Dose: Not Given Hydrochlorothiazide (Hydrodiuril) 25 mg PO DAILY [facility] Last Admin: 03/23/18 09:11 Dose: 25 mg Losartan Potassium (Cozaar) 100 mg PO DAILY [facility] Metoprolol Succinate (Toprol Xl) 25 mg PO DAILY [facility] Minoxidil (Minoxidil) 2.5 mg PO DAILY [facility] Rosuvastatin Calcium (Crestor) 10 mg PO HS [facility] Ticagrelor (Brilinta) 90 mg PO BID [facility] Last Admin: 03/23/18 09:11 Dose: 90 mg Physical Exam - Head Exam Head Exam: NORMOCEPHALIC - Neck Exam Neck exam: Positive for: Normal Inspection - Respiratory Exam Respiratory Exam: NORMAL BREATHING PATTERN - Cardiovascular Exam Cardiovascular Exam: REGULAR RHYTHM - Extremities Exam Extremities exam: Positive for: normal inspection - Neurological Exam Neurological exam: Oriented x3 Results - Vital Signs Recent Vital Signs: Last Vital Signs Temp 98.3 F 03/23/18 08:00 Pulse 62 03/23/18 09:00 Resp 15 03/23/18 09:00 BP 136/90 03/23/18 08:57 Pulse Ox 97 03/23/18 09:00 - Labs Result Diagrams: 03/23/18 05:37 03/23/18 05:35 Labs: Laboratory Results - last 24 hr 03/22/18 03/22/18 03/22/18 17:34 17:34 19:23 WBC 11.1 H RBC 4.94 Hgb 14.5 Hct 43.8 MCV 88.8 MCH 29.3 MCHC 33.0 RDW 13.2 Plt Count 324 MPV 8.9 Neut % (Auto) 64.0 Lymph % (Auto) 24.0 [place] % (Auto) 9.4 Eos % (Auto) 2.0 Baso % (Auto) 0.6 Neut # (Auto) 7.1 H Lymph # (Auto) 2.7 [place] # (Auto) 1.0 H Eos # (Auto) 0.2 Baso # (Auto) 0.1 PT 12.2 INR 1.1 APTT 34 Sodium 140 Potassium 4.2 Chloride 101 Carbon Dioxide 28 Anion Gap 15 BUN 19 Creatinine 0.9 Est GFR ( Amer) > 60 Est GFR (Non-Af Amer) > 60 Random Glucose 100 Calcium 10.0 Phosphorus Magnesium Total Bilirubin 0.6 AST 29 ALT 30 Alkaline Phosphatase 117 Total Creatine Kinase 100 CK-MB (Mass) 3.25 Troponin I 0.4940 H* NT-Pro-B Natriuret Pep 439 Total Protein 7.1 Albumin 4.1 Globulin 2.9 Albumin/Globulin Ratio 1.4 Blood Type Antibody Screen 03/22/18 03/23/18 03/23/18 20:11 05:35 05:37 WBC 9.9 RBC 4.39 L Hgb 13.3 Hct 39.0 MCV 89.0 MCH 30.4 MCHC 34.2 RDW 13.2 Plt Count 322 MPV 9.0 Neut % (Auto) Lymph % (Auto) [place] % (Auto) Eos % (Auto) Baso % (Auto) Neut # (Auto) Lymph # (Auto) [place] # (Auto) Eos # (Auto) Baso # (Auto) PT INR APTT Sodium 136 Potassium 3.4 L Chloride 100 Carbon Dioxide 28 Anion Gap 11 BUN 18 Creatinine 0.9 Est GFR ( Amer) > 60 Est GFR (Non-Af Amer) > 60 Random Glucose 107 Calcium 9.1 Phosphorus 4.0 Magnesium 1.7 Total Bilirubin 0.8 AST 54 ALT 35 Alkaline Phosphatase 94 Total Creatine Kinase CK-MB (Mass) Troponin I 9.3200 H* NT-Pro-B Natriuret Pep Total Protein 6.2 L Albumin 3.7 Globulin 2.5 Albumin/Globulin Ratio 1.5 Blood Type O POSITIVE Antibody Screen Negative Assessment & Plan (1) STEMI (ST elevation myocardial infarction) Assessment and Plan: S/p Angioplasty and Stent of mid LAD. No new complaints. Right groin no bleeding or hematoma. Continue DAPT. Risk factor modification. Beta blockers and MARCOS-I. Echocardiogram to assess L V systolic function. Status: Acute (2) Uncontrolled hypertension Assessment and Plan: BP not well controlled. Increase beta blockers. May need adjustment in antihypertensive regimen as out patient. Discussed with team and patient. Status: Acute
[2018-03-23] MEDS: Potassium Chloride 20 mEq ER Tab PO SCH ×2 (11:26→12:22)
--- NOTE | 2018-03-23 11:56 | CP.CCUPN ---
<Fozia Powers - Last Filed: 03/23/18 11:53> CCU Subjective - Physician Review Subjective (Free Text): 03/23/18 11:53 PGY-1 ICU Progress Note for Dr. Chaudhry's service Patient seen and examined at bedside. Patient offers no acute complaints. No events over night. Patient denies fevers, chest pain, sob, n/v, constipation or diarrhea, dizziness, and dysuria. Critical Care Time Spent (in minutes): 35 CCU Objective - Vital Signs / Intake & Output Vital Signs (Last 4 hours): Vital Signs Temp Pulse Resp BP Pulse Ox 03/23/18 11:06 73 15 136/83 97 03/23/18 11:00 73 6 L 98 03/23/18 10:57 79 11 L 143/84 97 03/23/18 10:30 82 20 97 03/23/18 10:00 77 16 98 03/23/18 09:57 147/93 H 03/23/18 09:30 74 14 97 03/23/18 09:00 62 15 97 03/23/18 08:57 63 14 136/90 97 03/23/18 08:30 61 14 97 03/23/18 08:12 63 18 127/78 03/23/18 08:00 98.3 F 60 14 97 03/23/18 07:57 77 14 127/78 Intake and Output (Last 8hrs): Intake & Output 03/22/18 03/23/18 03/23/18 22:59 06:59 14:59 Intake Total 9 663 456 Output Total 1000 600 200 Balance -991 63 256 Weight 214 lb 204 lb 1.6 oz Intake: IV 48 Intake, IV Amount 9 515 216 Left Antecubital 9 45 6 Right Forearm 450 200 Right Hand 20 10 Oral 0 100 240 Output: Urine 1000 600 200 Urine, Voided 1000 600 200 Stool 0 0 Other: Voiding Method Urinal - Physical Exam Head: Positive for: Atraumatic, Normocephalic Pupils: Positive for: PERRL Extroacular Muscles: Positive for: EOMI Conjunctiva: Positive for: Normal Mouth: Positive for: Moist Mucous Membranes Neck: Positive for: Normal Range of Motion. Negative for: Meningeal Signs, JVD Respiratory/Chest: Positive for: Clear to Auscultation, Good Air Exchange. Negative for: Respiratory Distress, Accessory Muscle Use, Wheezes, Decreased Breath Sounds, Rales, Rhonchi, Tachypneic Cardiovascular: Positive for: Regular Rate and Rhythm, Normal S1, S2. Negative for: Murmurs, Irregular Rhythm, Tachycardic, Bradycardic Abdomen: Positive for: Normal Bowel Sounds. Negative for: Tenderness, Distention, Peritoneal Signs, Guarding Upper Extremity: Positive for: Normal Inspection. Negative for: Cyanosis, Edema Lower Extremity: Positive for: Normal Inspection. Negative for: Edema Neurological: Positive for: GCS=15, Speech Normal Skin: Positive for: Dry, Normal Color. Negative for: Diaphoretic Psychiatric: Positive for: Alert, Oriented x 3, Normal Insight, Normal Concentration - Medications Active Medications: Active Medications Generic Name Dose Route Start Last Admin Trade Name Freq PRN Reason Stop Dose Admin Acetaminophen 650 mg 03/22/18 22:26 03/23/18 00:08 Tylenol 325mg Tab PO 650 mg Q6 PRN Administration Pain, Mild (1-3) Amlodipine Besylate 10 mg 03/23/18 10:00 Norvasc PO DAILY [facility] Aspirin 81 mg 03/23/18 10:00 03/23/18 09:11 Aspirin Chewable PO 81 mg DAILY [facility] Administration Clonidine HCl 0.1 mg 03/23/18 10:00 03/23/18 09:11 Catapres PO 0.1 mg TID [facility] Administration Docusate Sodium 100 mg 03/23/18 10:00 03/23/18 09:11 Colace PO 100 mg BID [facility] Administration Famotidine 20 mg 03/23/18 10:00 03/23/18 09:12 Pepcid PO 20 mg BID [facility] Administration Hydralazine HCl 100 mg 03/23/18 06:00 03/23/18 06:13 Apresoline PO Not Given Q8 [facility] Hydrochlorothiazide 25 mg 03/23/18 10:00 03/23/18 09:11 Hydrodiuril PO 25 mg DAILY [facility] Administration Losartan Potassium 100 mg 03/23/18 10:00 Cozaar PO DAILY [facility] Metoprolol Tartrate 50 mg 03/23/18 18:00 Lopressor PO BID [facility] Minoxidil 2.5 mg 03/23/18 10:00 Minoxidil PO DAILY [facility] Rosuvastatin Calcium 10 mg 03/23/18 22:00 Crestor PO HS [facility] Ticagrelor 90 mg 03/23/18 10:00 03/23/18 09:11 Brilinta PO 90 mg BID [facility] Administration - Patient Studies Lab Studies: Lab Studies 03/23/18 03/23/18 03/22/18 Range/Units 05:37 05:35 20:11 WBC 9.9 (4.8-10.8) K/uL RBC 4.39 L (4.40-5.90) Mil/uL Hgb 13.3 (12.0-18.0) g/dL Hct 39.0 (35.0-51.0) % MCV 89.0 (80.0-94.0) fL MCH 30.4 (27.0-31.0) pg MCHC 34.2 (33.0-37.0) g/dL RDW 13.2 (11.5-14.5) % Plt Count 322 (130-400) K/uL MPV 9.0 (7.2-11.7) fL Neut % (Auto) (50.0-75.0) % Lymph % (Auto) (20.0-40.0) % [place] % (Auto) (0.0-10.0) % Eos % (Auto) (0.0-4.0) % Baso % (Auto) (0.0-2.0) % Neut # (Auto) (1.8-7.0) K/uL Lymph # (Auto) (1.0-4.3) K/uL [place] # (Auto) (0.0-0.8) K/uL Eos # (Auto) (0.0-0.7) K/uL Baso # (Auto) (0.0-0.2) K/uL PT (9.7-12.2) SECONDS INR APTT (21-34) SECONDS Sodium 136 (132-148) mmol/L Potassium 3.4 L (3.6-5.2) mmol/L Chloride 100 (98-107) mmol/L Carbon Dioxide 28 (22-30) mmol/L Anion Gap 11 (10-20) BUN 18 (9-20) mg/dL Creatinine 0.9 (0.8-1.5) mg/dL Est GFR ( Amer) > 60 Est GFR (Non-Af Amer) > 60 Random Glucose 107 (75-110) mg/dL Calcium 9.1 (8.6-10.4) mg/dl Phosphorus 4.0 (2.5-4.5) mg/dL Magnesium 1.7 (1.6-2.3) mg/dL Total Bilirubin 0.8 (0.2-1.3) mg/dL AST 54 (17-59) U/L ALT 35 (21-72) U/L Alkaline Phosphatase 94 (38-126) U/L Total Creatine Kinase (55-170) U/L CK-MB (Mass) (0.0-3.38) ng/mL Troponin I 9.3200 H* (0.00-0.120) ng/mL NT-Pro-B Natriuret Pep (0-900) pg/mL Total Protein 6.2 L (6.3-8.3) g/dL Albumin 3.7 (3.5-5.0) g/dL Globulin 2.5 (2.2-3.9) gm/dL Albumin/Globulin Ratio 1.5 (1.0-2.1) Blood Type O POSITIVE Antibody Screen Negative 03/22/18 03/22/18 03/22/18 Range/Units 19:23 17:34 17:34 WBC 11.1 H (4.8-10.8) K/uL RBC 4.94 (4.40-5.90) Mil/uL Hgb 14.5 (12.0-18.0) g/dL Hct 43.8 (35.0-51.0) % MCV 88.8 (80.0-94.0) fL MCH 29.3 (27.0-31.0) pg MCHC 33.0 (33.0-37.0) g/dL RDW 13.2 (11.5-14.5) % Plt Count 324 (130-400) K/uL MPV 8.9 (7.2-11.7) fL Neut % (Auto) 64.0 (50.0-75.0) % Lymph % (Auto) 24.0 (20.0-40.0) % [place] % (Auto) 9.4 (0.0-10.0) % Eos % (Auto) 2.0 (0.0-4.0) % Baso % (Auto) 0.6 (0.0-2.0) % Neut # (Auto) 7.1 H (1.8-7.0) K/uL Lymph # (Auto) 2.7 (1.0-4.3) K/uL [place] # (Auto) 1.0 H (0.0-0.8) K/uL Eos # (Auto) 0.2 (0.0-0.7) K/uL Baso # (Auto) 0.1 (0.0-0.2) K/uL PT 12.2 (9.7-12.2) SECONDS INR 1.1 APTT 34 (21-34) SECONDS Sodium 140 (132-148) mmol/L Potassium 4.2 (3.6-5.2) mmol/L Chloride 101 (98-107) mmol/L Carbon Dioxide 28 (22-30) mmol/L Anion Gap 15 (10-20) BUN 19 (9-20) mg/dL Creatinine 0.9 (0.8-1.5) mg/dL Est GFR ( Amer) > 60 Est GFR (Non-Af Amer) > 60 Random Glucose 100 (75-110) mg/dL Calcium 10.0 (8.6-10.4) mg/dl Phosphorus (2.5-4.5) mg/dL Magnesium (1.6-2.3) mg/dL Total Bilirubin 0.6 (0.2-1.3) mg/dL AST 29 (17-59) U/L ALT 30 (21-72) U/L Alkaline Phosphatase 117 (38-126) U/L Total Creatine Kinase 100 (55-170) U/L CK-MB (Mass) 3.25 (0.0-3.38) ng/mL Troponin I 0.4940 H* (0.00-0.120) ng/mL NT-Pro-B Natriuret Pep 439 (0-900) pg/mL Total Protein 7.1 (6.3-8.3) g/dL Albumin 4.1 (3.5-5.0) g/dL Globulin 2.9 (2.2-3.9) gm/dL Albumin/Globulin Ratio 1.4 (1.0-2.1) Blood Type Antibody Screen Laboratory Results - last 24 hr 03/22/18 03/22/18 03/22/18 17:34 17:34 19:23 WBC 11.1 H RBC 4.94 Hgb 14.5 Hct 43.8 MCV 88.8 MCH 29.3 MCHC 33.0 RDW 13.2 Plt Count 324 MPV 8.9 Neut % (Auto) 64.0 Lymph % (Auto) 24.0 [place] % (Auto) 9.4 Eos % (Auto) 2.0 Baso % (Auto) 0.6 Neut # (Auto) 7.1 H Lymph # (Auto) 2.7 [place] # (Auto) 1.0 H Eos # (Auto) 0.2 Baso # (Auto) 0.1 PT 12.2 INR 1.1 APTT 34 Sodium 140 Potassium 4.2 Chloride 101 Carbon Dioxide 28 Anion Gap 15 BUN 19 Creatinine 0.9 Est GFR ( Amer) > 60 Est GFR (Non-Af Amer) > 60 Random Glucose 100 Calcium 10.0 Phosphorus Magnesium Total Bilirubin 0.6 AST 29 ALT 30 Alkaline Phosphatase 117 Total Creatine Kinase 100 CK-MB (Mass) 3.25 Troponin I 0.4940 H* NT-Pro-B Natriuret Pep 439 Total Protein 7.1 Albumin 4.1 Globulin 2.9 Albumin/Globulin Ratio 1.4 Blood Type Antibody Screen 03/22/18 03/23/18 03/23/18 20:11 05:35 05:37 WBC 9.9 RBC 4.39 L Hgb 13.3 Hct 39.0 MCV 89.0 MCH 30.4 MCHC 34.2 RDW 13.2 Plt Count 322 MPV 9.0 Neut % (Auto) Lymph % (Auto) [place] % (Auto) Eos % (Auto) Baso % (Auto) Neut # (Auto) Lymph # (Auto) [place] # (Auto) Eos # (Auto) Baso # (Auto) PT INR APTT Sodium 136 Potassium 3.4 L Chloride 100 Carbon Dioxide 28 Anion Gap 11 BUN 18 Creatinine 0.9 Est GFR ( Amer) > 60 Est GFR (Non-Af Amer) > 60 Random Glucose 107 Calcium 9.1 Phosphorus 4.0 Magnesium 1.7 Total Bilirubin 0.8 AST 54 ALT 35 Alkaline Phosphatase 94 Total Creatine Kinase CK-MB (Mass) Troponin I 9.3200 H* NT-Pro-B Natriuret Pep Total Protein 6.2 L Albumin 3.7 Globulin 2.5 Albumin/Globulin Ratio 1.5 Blood Type O POSITIVE Antibody Screen Negative Radiology Impressions: Radiology Impressions Chest X-Ray 03/22/18 17:54 IMPRESSION: No focal consolidation. EKG/Cardiology Studies: Cardiology / EKG Studies 03/22/18 16:55 EKG [ELECTROCARDIOGRAM] Stat Comment: Mode Of Transportation: BED Reason For Exam: CP 03/22/18 17:53 ELECTROCARDIOGRAM Stat Comment: Mode Of Transportation: BED Reason For Exam: chest pain 03/22/18 19:34 EKG [ELECTROCARDIOGRAM] Stat Comment: Mode Of Transportation: BED Reason For Exam: cp EKG [ELECTROCARDIOGRAM] Stat Comment: Mode Of Transportation: BED Reason For Exam: cp 03/22/18 21:32 EKG [ELECTROCARDIOGRAM] Stat Comment: Mode Of Transportation: Reason For Exam: Code Heart s/p PCI 03/23/18 06:00 EKG [ELECTROCARDIOGRAM] Routine Comment: Mode Of Transportation: PORTABLE Reason For Exam: IN Results Reviewed to Date: Yes - Procedures Procedures (Free Text): 03/23/18 11:55 Cardiac Cath 03/23: 2 stents in LAD Review of Systems - Review of Systems Review of Systems: 12 point ROS obtained and noted as in HPI Critical Care Progress Note - Extremities/Vascular Does the Patient have a Central Venous Catheter?: No Does the Patient need a Central Venous Catheter?: No Does the Patient have a [place] Catheter?: No Does the Patient need a [place] Catheter?: No Catheter Insertion Criteria: Need for accurate measurement of output in critically ill patient - Prophylaxis GI Prophylaxis GI: Pepsid - Prophylaxis DVT Prophylaxis DVT: SCDs - Nutrition Nutrition: Nutrition Category Date Time Status Heart Healthy Diet [DIET] Diets 03/23/18 Breakfast Active Assessment/Plan - Assessment and Plan (Free Text) Assessment: Patient is a 57 yo male w/ PMH of HTN, Hypercholesterolemia, elevated blood sugars is admitted to hospital for chest pain with elevated troponins. Code heart was called on 03/22 for cardiac cath. 2 stents were placed in the LAD. Neuro: Awake, Alert, Conversational Pulm: No acute issues; 97 O2 saturation Cardio: Hx of uncontrolled HTN: HCTZ 25mg po daily, Clonidine 0.1mg po tid jennifer; Lopressor 50mg po bidOther blood pressure meds on hold as patient was normotensive in AM IN- cardiac cath w/2 stents in LAD: Aspirin 81, Brilinta 90mg po bid jennifer, Crestor 10mg po HS Jennifer; ECHO pending for possible downgrade GI: no acute issues; Pepsid 20mg po bid jennifer Endo: Sugars under control Renal: Hypokalemia- Repleting with KCl ID: no infectious process; afebrile; no leukocytosis DVT ppx: SCDs GI ppx: Pepcid 20mg po bid jennifer HHD PGY-1 Mad[facility] Gio Case d/w Dr. Chaudhry <Joaquin Chaudhry S - Last Filed: 03/23/18 17:53> CCU Objective - Vital Signs / Intake & Output Vital Signs (Last 4 hours): Vital Signs Temp Pulse Resp BP Pulse Ox 03/23/18 17:00 81 18 96 03/23/18 16:57 80 18 134/79 95 03/23/18 16:30 106 H 18 99 03/23/18 16:00 98.7 F 84 9 L 98 03/23/18 15:57 82 11 L 151/92 H 96 03/23/18 15:56 81 12 157/87 H 96 03/23/18 15:33 88 17 163/101 H 98 03/23/18 15:30 87 17 98 03/23/18 15:00 87 15 99 03/23/18 14:57 91 H 17 162/108 H 96 03/23/18 14:30 89 12 99 03/23/18 14:00 86 18 03/23/18 13:58 83 12 169/98 H Intake and Output (Last 8hrs): Intake & Output 03/23/18 03/23/18 03/23/18 06:59 14:59 22:59 Intake Total 663 1056 480 Output Total 600 1300 300 Balance 63 -244 180 Weight 204 lb 1.6 oz Intake: IV 48 Intake, IV Amount 515 216 Left Antecubital 45 6 Right Forearm 450 200 Right Hand 20 10 Oral 100 840 480 Output: Urine 600 1300 300 Urine, Voided 600 1300 300 Stool 0 - Medications Active Medications: Active Medications Generic Name Dose Route Start Last Admin Trade Name Freq PRN Reason Stop Dose Admin Acetaminophen 650 mg 03/22/18 22:26 03/23/18 00:08 Tylenol 325mg Tab PO 650 mg Q6 PRN Administration Pain, Mild (1-3) Amlodipine Besylate 10 mg 03/23/18 10:00 03/23/18 12:21 Norvasc PO 10 mg DAILY [facility] Administration Aspirin 81 mg 03/23/18 10:00 03/23/18 09:11 Aspirin Chewable PO 81 mg DAILY [facility] Administration Clonidine HCl 0.1 mg 03/23/18 10:00 03/23/18 15:44 Catapres PO 0.1 mg TID [facility] Administration Docusate Sodium 100 mg 03/23/18 10:00 03/23/18 09:11 Colace PO 100 mg BID [facility] Administration Famotidine 20 mg 03/23/18 10:00 03/23/18 09:12 Pepcid PO 20 mg BID [facility] Administration Hydralazine HCl 100 mg 03/23/18 06:00 03/23/18 15:44 Apresoline PO 100 mg Q8 [facility] Administration Hydrochlorothiazide 25 mg 03/23/18 10:00 03/23/18 09:11 Hydrodiuril PO 25 mg DAILY [facility] Administration Influenza Virus Vaccine 60 mcg 03/24/18 10:00 Fluzone Quad [id number] IM 03/24/18 10:01 .ONCE ONE Losartan Potassium 100 mg 03/23/18 10:00 03/23/18 12:21 Cozaar PO 100 mg DAILY [facility] Administration Metoprolol Tartrate 50 mg 03/23/18 18:00 Lopressor PO BID [facility] Minoxidil 2.5 mg 03/23/18 10:00 Minoxidil PO DAILY [facility] Pneumococcal Polyvalent Vaccine 0.5 ml 03/24/18 10:00 Pneumovax 23 Vaccine IM 03/24/18 10:01 .ONCE ONE Rosuvastatin Calcium 10 mg 03/23/18 22:00 Crestor PO HS [facility] Ticagrelor 90 mg 03/23/18 10:00 03/23/18 09:11 Brilinta PO 90 mg BID [facility] Administration - Patient Studies Lab Studies: Lab Studies 03/23/18 03/23/18 03/22/18 Range/Units 05:37 05:35 20:11 WBC 9.9 (4.8-10.8) K/uL RBC 4.39 L (4.40-5.90) Mil/uL Hgb 13.3 (12.0-18.0) g/dL Hct 39.0 (35.0-51.0) % MCV 89.0 (80.0-94.0) fL MCH 30.4 (27.0-31.0) pg MCHC 34.2 (33.0-37.0) g/dL RDW 13.2 (11.5-14.5) % Plt Count 322 (130-400) K/uL MPV 9.0 (7.2-11.7) fL PT (9.7-12.2) SECONDS INR APTT (21-34) SECONDS Sodium 136 (132-148) mmol/L Potassium 3.4 L (3.6-5.2) mmol/L Chloride 100 (98-107) mmol/L Carbon Dioxide 28 (22-30) mmol/L Anion Gap 11 (10-20) BUN 18 (9-20) mg/dL Creatinine 0.9 (0.8-1.5) mg/dL Est GFR ( Amer) > 60 Est GFR (Non-Af Amer) > 60 Random Glucose 107 (75-110) mg/dL Calcium 9.1 (8.6-10.4) mg/dl Phosphorus 4.0 (2.5-4.5) mg/dL Magnesium 1.7 (1.6-2.3) mg/dL Total Bilirubin 0.8 (0.2-1.3) mg/dL AST 54 (17-59) U/L ALT 35 (21-72) U/L Alkaline Phosphatase 94 (38-126) U/L Total Creatine Kinase (55-170) U/L CK-MB (Mass) (0.0-3.38) ng/mL Troponin I 9.3200 H* (0.00-0.120) ng/mL NT-Pro-B Natriuret Pep (0-900) pg/mL Total Protein 6.2 L (6.3-8.3) g/dL Albumin 3.7 (3.5-5.0) g/dL Globulin 2.5 (2.2-3.9) gm/dL Albumin/Globulin Ratio 1.5 (1.0-2.1) Blood Type O POSITIVE Antibody Screen Negative 03/22/18 03/22/18 Range/Units 19:23 17:34 WBC (4.8-10.8) K/uL RBC (4.40-5.90) Mil/uL Hgb (12.0-18.0) g/dL Hct (35.0-51.0) % MCV (80.0-94.0) fL MCH (27.0-31.0) pg MCHC (33.0-37.0) g/dL RDW (11.5-14.5) % Plt Count (130-400) K/uL MPV (7.2-11.7) fL PT 12.2 (9.7-12.2) SECONDS INR 1.1 APTT 34 (21-34) SECONDS Sodium 140 (132-148) mmol/L Potassium 4.2 (3.6-5.2) mmol/L Chloride 101 (98-107) mmol/L Carbon Dioxide 28 (22-30) mmol/L Anion Gap 15 (10-20) BUN 19 (9-20) mg/dL Creatinine 0.9 (0.8-1.5) mg/dL Est GFR ( Amer) > 60 Est GFR (Non-Af Amer) > 60 Random Glucose 100 (75-110) mg/dL Calcium 10.0 (8.6-10.4) mg/dl Phosphorus (2.5-4.5) mg/dL Magnesium (1.6-2.3) mg/dL Total Bilirubin 0.6 (0.2-1.3) mg/dL AST 29 (17-59) U/L ALT 30 (21-72) U/L Alkaline Phosphatase 117 (38-126) U/L Total Creatine Kinase 100 (55-170) U/L CK-MB (Mass) 3.25 (0.0-3.38) ng/mL Troponin I 0.4940 H* (0.00-0.120) ng/mL NT-Pro-B Natriuret Pep 439 (0-900) pg/mL Total Protein 7.1 (6.3-8.3) g/dL Albumin 4.1 (3.5-5.0) g/dL Globulin 2.9 (2.2-3.9) gm/dL Albumin/Globulin Ratio 1.4 (1.0-2.1) Blood Type Antibody Screen Laboratory Results - last 24 hr 03/22/18 03/22/18 03/22/18 17:34 19:23 20:11 WBC RBC Hgb Hct MCV MCH MCHC RDW Plt Count MPV PT 12.2 INR 1.1 APTT 34 Sodium 140 Potassium 4.2 Chloride 101 Carbon Dioxide 28 Anion Gap 15 BUN 19 Creatinine 0.9 Est GFR ( Amer) > 60 Est GFR (Non-Af Amer) > 60 Random Glucose 100 Calcium 10.0 Phosphorus Magnesium Total Bilirubin 0.6 AST 29 ALT 30 Alkaline Phosphatase 117 Total Creatine Kinase 100 CK-MB (Mass) 3.25 Troponin I 0.4940 H* NT-Pro-B Natriuret Pep 439 Total Protein 7.1 Albumin 4.1 Globulin 2.9 Albumin/Globulin Ratio 1.4 Blood Type O POSITIVE Antibody Screen Negative 03/23/18 03/23/18 05:35 05:37 WBC 9.9 RBC 4.39 L Hgb 13.3 Hct 39.0 MCV 89.0 MCH 30.4 MCHC 34.2 RDW 13.2 Plt Count 322 MPV 9.0 PT INR APTT Sodium 136 Potassium 3.4 L Chloride 100 Carbon Dioxide 28 Anion Gap 11 BUN 18 Creatinine 0.9 Est GFR ( Amer) > 60 Est GFR (Non-Af Amer) > 60 Random Glucose 107 Calcium 9.1 Phosphorus 4.0 Magnesium 1.7 Total Bilirubin 0.8 AST 54 ALT 35 Alkaline Phosphatase 94 Total Creatine Kinase CK-MB (Mass) Troponin I 9.3200 H* NT-Pro-B Natriuret Pep Total Protein 6.2 L Albumin 3.7 Globulin 2.5 Albumin/Globulin Ratio 1.5 Blood Type Antibody Screen Radiology Impressions: Radiology Impressions Chest X-Ray 03/22/18 17:54 IMPRESSION: No focal consolidation. EKG/Cardiology Studies: Cardiology / EKG Studies 03/22/18 16:55 EKG [ELECTROCARDIOGRAM] Stat Comment: Mode Of Transportation: BED Reason For Exam: CP 03/22/18 17:53 ELECTROCARDIOGRAM Stat Comment: Mode Of Transportation: BED Reason For Exam: chest pain 03/22/18 19:34 EKG [ELECTROCARDIOGRAM] Stat Comment: Mode Of Transportation: BED Reason For Exam: cp EKG [ELECTROCARDIOGRAM] Stat Comment: Mode Of Transportation: BED Reason For Exam: cp 03/22/18 21:32 EKG [ELECTROCARDIOGRAM] Stat Comment: Mode Of Transportation: Reason For Exam: Code Heart s/p PCI 03/23/18 06:00 EKG [ELECTROCARDIOGRAM] Routine Comment: Mode Of Transportation: PORTABLE Reason For Exam: IN Critical Care Progress Note - Nutrition Nutrition: Nutrition Category Date Time Status Heart Healthy Diet [DIET] Diets 03/23/18 Breakfast Active Attending/Attestation - Attestation I have personally seen and examined this patient.: Yes I have fully participated in the care of the patient.: Yes I have reviewed all pertinent clinical information: Yes Notes (Text): 03/23/18 17:52 patient seen and examined in the intensive care unit. ST elevation IN status post stent placement last night Continue brilinta and aspirin Blood pressure control Increase beta blockers Echocardiogram no further chest pain
--- NOTE | 2018-03-23 12:17 | CARD ---
APPROVED REPORT Date of service: 03/22/2018 EKG Measurement Heart [id number] DE 186P50 [id number] <Conclusion> Normal sinus rhythm Left anterior fascicular block Anterior injury pattern ACUTE [place] / STEMI Abnormal ECG
[2018-03-24 06:15] LABS: BASO # 0.1 K/uL (0.0-0.2); BASO % 0.7 % (0.0-2.0); EOS # 0.2 K/uL (0.0-0.7); EOS % 1.6 % (0.0-4.0); HEMOGLOBIN 13.3 g/dL (12.0-18.0); LYMPH # 2.6 K/uL (1.0-4.3); LYMPH % 23.4 % (20.0-40.0); MEAN CELL VOLUME 89.6 fL (80.0-94.0); MEAN CORPUSCULAR HEMOGLOBIN 29.9 pg (27.0-31.0); MEAN CORPUSCULAR HGB CONC 33.4 g/dL (33.0-37.0); MONO # 1.2 K/uL (0.0-0.8); MONO % 10.8 % (0.0-10.0); NEUT % 63.5 % (50.0-75.0); RBC 4.45 Mil/uL (4.40-5.90); RED CELL DISTRIBUTION WIDTH 13.3 % (11.5-14.5); WHITE BLOOD COUNT 11.1 K/uL (4.8-10.8)
[2018-03-24 06:32] LABS: ALB/GLOB RATIO 1.4 (1.0-2.1); ALBUMIN 3.6 g/dL (3.5-5.0); ALT/SGPT 28 U/L (21-72); AST/SGOT 27 U/L (17-59); BLOOD UREA NITROGEN 17 mg/dL (9-20); CALCIUM 8.4 mg/dl (8.6-10.4); GFR NON-AFRICAN AMERICAN > 60
--- NOTE | 2018-03-24 06:36 | CARDCATH ---
PROCEDURE DATE: 03/22/2018 BRIEF CLINICAL HISTORY: The patient is a 57-year-old male with history of coronary artery disease, hypertension, hyperlipidemia, who was having chest pain for the last 2 days. On the day of admission, the patient started having worsening of the pain; however, he went to home. Later on, in the evening, he came to the hospital where he had an EKG done due to his chest pain, and the patient's EKG showed significant changes and the patient had positive troponins. Repeat EKG also showed the similar changes. Later on, the code heart was called in. DESCRIPTION OF PROCEDURE: After obtaining the consent, the patient was prepared for cardiac catheterization and coronary angioplasty. Right groin was used for access. After obtaining the access, a 6-Portuguese sheath was introduced into the right femoral artery, and the access was completed without complication. A 6-Portuguese 3.5 XBLAD catheter was used to visualize the left coronary artery system and procedure. A 6-Portuguese JR4 catheter was used to visualize the right coronary artery system. A 6-Portuguese Pigtail catheter was used to assess the left ventricular end-diastolic pressure and LV function. FINDINGS: The patient has a large-sized left main without any significant disease. The patient has a stent in the proximal portion of the LAD with moderate stent restenosis. Distal to the stent, in the midportion of the vessel, the patient has a 99% restenosed lesion with a TIMI1 to 2 flow. The patient has a large diagonal branch, which is jailed with a previous stent and has a 99% proximal stenosis with mid diagonal about 80% to 90% lesion and distal portion of the diagonal 1 also has 80% to 90% lesion. Circumflex is without significant coronary artery disease. RCA is a medium-sized vessel, which has a more than 90% anchor in the proximal portion of the vessel consisting of 60% to 70% lesion. LV function is normal. After obtaining multiple views of the left systems, angioplasty and stenting of the mid LAD 99% stenosis was performed. Initial dilatation of the lesion was performed with 2.0 terminal balloon. Later, 2.25 x 15 stent was deployed and a 2.5 x 8 mm stent was deployed proximal to the previous stent. Both the stents were dilated with a 2.5 x 15 balloon in the proximal and midportion of the previous stent with a posterior 0% restenosis. ASSESSMENT AND PLAN: Multivessel disease, successful angioplasty and stenting of the left anterior descending Artery. PLAN: The patient will be admitted in the CCU where he will be monitored. We will follow up the troponin and EKG and 2-D echo to assess LV systolic function, control blood pressure with activity modification. Bogdan Barrett MD MTDD
--- NOTE | 2018-03-24 08:58 | CP.PCM.PN ---
Subjective - Date & Time of Evaluation Date of Evaluation: 03/24/18 Time of Evaluation: 08:30 - Subjective Subjective: chart review Vitals noted stable saw plan for telemetry no acute events patient seen chest pain free out of bed to chair, can ambulates aware of condition and plan Objective - Vital Signs/Intake and Output Vital Signs (last 24 hours): Temp Pulse Resp BP Pulse Ox 98.4 F 76 13 145/88 98 03/24/18 08:00 03/24/18 08:00 03/24/18 07:56 03/24/18 07:56 03/24/18 08:00 Intake and Output: 03/24/18 03/24/18 06:59 18:59 Intake Total 720 Output Total 1550 Balance -830 - Medications Medications: Current Medications Acetaminophen (Tylenol 325mg Tab) 650 mg PO Q6 PRN PRN Reason: Pain, Mild (1-3) Last Admin: 03/23/18 00:08 Dose: 650 mg Amlodipine Besylate (Norvasc) 10 mg PO DAILY [facility] Last Admin: 03/23/18 12:21 Dose: 10 mg Aspirin (Aspirin Chewable) 81 mg PO DAILY [facility] Last Admin: 03/23/18 09:11 Dose: 81 mg Clonidine HCl (Catapres) 0.1 mg PO TID [facility] Last Admin: 03/23/18 19:17 Dose: 0.1 mg Docusate Sodium (Colace) 100 mg PO BID [facility] Last Admin: 03/23/18 18:25 Dose: 100 mg Famotidine (Pepcid) 20 mg PO BID [facility] Last Admin: 03/23/18 18:26 Dose: 20 mg Hydralazine HCl (Apresoline) 100 mg PO Q8 [facility] Last Admin: 03/24/18 05:50 Dose: 100 mg Hydrochlorothiazide (Hydrodiuril) 25 mg PO DAILY [facility] Last Admin: 03/23/18 09:11 Dose: 25 mg Influenza Virus Vaccine (Fluzone Quad [id number]) 60 mcg IM .ONCE ONE Stop: 03/24/18 10:01 Losartan Potassium (Cozaar) 100 mg PO DAILY [facility] Last Admin: 03/23/18 12:21 Dose: 100 mg Metoprolol Tartrate (Lopressor) 50 mg PO BID [facility] Last Admin: 03/23/18 18:26 Dose: 50 mg Minoxidil (Minoxidil) 2.5 mg PO DAILY [facility] Last Admin: 03/23/18 18:26 Dose: 2.5 mg Pneumococcal Polyvalent Vaccine (Pneumovax 23 Vaccine) 0.5 ml IM .ONCE ONE Stop: 03/24/18 10:01 Rosuvastatin Calcium (Crestor) 10 mg PO HS [facility] Last Admin: 03/23/18 23:00 Dose: 10 mg Ticagrelor (Brilinta) 90 mg PO BID [facility] Last Admin: 03/23/18 18:25 Dose: 90 mg - Labs Labs: 03/24/18 06:11 03/24/18 06:09 PT 12.2 SECONDS (9.7-12.2) 03/22/18 19:23 INR 1.1 03/22/18 19:23 APTT 34 SECONDS (21-34) 03/22/18 19:23 - Constitutional Appears: Non-toxic, No Acute Distress - Head Exam Head Exam: ATRAUMATIC, NORMOCEPHALIC - Eye Exam Eye Exam: Normal appearance. absent: Nystagmus - ENT Exam ENT Exam: Mucous Membranes Moist - Neck Exam Neck Exam: Full ROM. absent: Tenderness - Respiratory Exam Respiratory Exam: Clear to Ausculation Bilateral, NORMAL BREATHING PATTERN - Cardiovascular Exam Cardiovascular Exam: REGULAR RHYTHM - GI/Abdominal Exam GI & Abdominal Exam: Soft, Normal Bowel Sounds. absent: Tenderness - Neurological Exam Neurological Exam: Alert, Awake, Normal Gait, Oriented x3 - Psychiatric Exam Psychiatric exam: Normal Affect, Normal Mood - Skin Skin Exam: Intact, Normal Color Assessment and Plan - Assessment and Plan (Free Text) Assessment: Patient with CAD s/p stent- on cardiac meds further plan as per cardio Hypertension controllled on multiple BP meds Proteinuria- work up as out patient on statin on beta shanna on brilinta on GI prphylaxis continue curent care
[2018-03-24] MEDS ORDERED: Influenza Vaccine 60 MCG/0.5 ML SYR (3 yr & up) IM ONE (10:00)
[2018-03-24] MEDS ORDERED: Pneumococcal 23-Valent Vaccine IM ONE (10:00)
--- NOTE | 2018-03-24 11:01 | CARD ---
APPROVED REPORT Date of service: 03/22/2018 EKG Measurement Heart [id number] DC 186P42 [id number] <Conclusion> Normal sinus rhythm Left axis deviation Abnormal ECG
--- NOTE | 2018-03-24 11:01 | CARD ---
APPROVED REPORT Date of service: 03/23/2018 EKG Measurement Heart [id number] RI 198P44 [id number] <Conclusion> Normal sinus rhythm Left anterior fascicular block T wave abnormality, consider anterolateral ischemia Abnormal ECG
--- NOTE | 2018-03-24 11:01 | CARD ---
APPROVED REPORT Date of service: 03/22/2018 EKG Measurement Heart [id number] [place] 182P33 [id number] <Conclusion> Normal sinus rhythm Left axis deviation Anterior infarct, possibly acute T wave abnormality, consider lateral ischemia ACUTE [place] / STEMI Abnormal ECG
--- NOTE | 2018-03-24 11:02 | CARD ---
APPROVED REPORT Date of service: 03/22/2018 EKG Measurement Heart [id number] [place] 186P44 [id number] <Conclusion> Normal sinus rhythm Left anterior fascicular block Possible Anterior infarct, age undetermined Abnormal ECG
--- NOTE | 2018-03-24 11:02 | CARD ---
APPROVED REPORT Date of service: 03/22/2018 EKG Measurement Heart [id number] [place] 198P41 [id number] <Conclusion> Normal sinus rhythm Left axis deviation T wave abnormality, consider inferior ischemia T wave abnormality, consider anterior ischemia Abnormal ECG
--- NOTE | 2018-03-24 19:42 | CARD ---
APPROVED REPORT Date of service: 03/23/2018 EXAM: LIMITED Two-dimensional and M-mode echocardiogram. Other Information Quality : LimitedRhythm : INDICATION Acute PA 2D DIMENSIONS IVSd1.2 (0.7-1.1cm)Aortic Root (2D)3.2 (2.0-3.7cm) LVDd5.7 (3.9-5.9cm)PWd1.1 (0.7-1.1cm) LVDs4.1 (2.5-4.0cm)FS (%) 28.8 % LVEF (%)54.6 (>50%)LVEF (Fang's)52.60 % M-Mode DIMENSIONS IVSd0.69 (0.7-1.1cm)LVDd4.86 (4.0-5.6cm) PWd0.76 (0.7-1.1cm)FS (%) 36 % LVDs3.12 (2.0-3.8cm)LVEF (%)65 (>50%) Mitral Valve MV E Ioioacgt36.6cm/sMV A Pdogccoc401.6cm/sE/A ratio0.5 TDI E/Lateral E'0.0E/Medial E'0.0 LEFT VENTRICLE The left ventricle is normal size. There is normal left ventricular wall thickness. The left ventricular function is normal. The left ventricular ejection fraction is within the normal range. No regional wall motion abnormalities noted. . No left ventricle thrombus noted on this study. There is no ventricular septal defect visualized. There is no left ventricular aneurysm. There is no mass noted in the left ventricle. RIGHT VENTRICLE The right ventricle is normal size. There is normal right ventricular wall thickness. The right ventricular systolic function is normal. ATRIA The left atrium size is normal. The right atrium size is normal. The interatrial septum is intact with no evidence for an atrial septal defect. AORTIC VALVE The aortic valve is normal in structure and function. No aortic regurgitation is present. There is no aortic valvular stenosis. There is no aortic valvular vegetation. MITRAL VALVE The mitral valve is normal in structure and function. Mitral annular calcification is mild to moderate. There is no evidence of mitral valve prolapse. There is no mitral valve stenosis. There is no mitral valve regurgitation noted. TRICUSPID VALVE The tricuspid valve is normal in structure and function. There is no tricuspid valve regurgitation noted. There is no tricuspid valve prolapse or vegetation. There is no tricuspid valve stenosis. PULMONIC VALVE The pulmonary valve is normal in structure and function. There is no pulmonic valvular regurgitation. There is no pulmonic valvular stenosis. GREAT VESSELS The aortic root is normal in size. The ascending aorta is normal in size. The pulmonary artery is normal. The IVC is normal in size and collapses >50% with inspiration. PERICARDIAL EFFUSION The pericardium appears normal. There is no pleural effusion. <Conclusion> The left ventricular function is normal. The left ventricular ejection fraction is within the normal range. No regional wall motion abnormalities noted.
--- NOTE | 2018-03-24 19:48 | CP.PCM.PN ---
Subjective - Date & Time of Evaluation Date of Evaluation: 03/24/18 Time of Evaluation: 17:25 - Subjective Subjective: Patient seen and evaluated Denies chest pain and dyspnea Physical Exam - Head Exam Head Exam: NORMOCEPHALIC - Neck Exam Neck exam: Positive for: Normal Inspection - Respiratory Exam Respiratory Exam: NORMAL BREATHING PATTERN - Cardiovascular Exam Cardiovascular Exam: REGULAR RHYTHM - Extremities Exam Extremities exam: Positive for: normal inspection - Neurological Exam Neurological exam: Oriented x3 Assessment & Plan (1) STEMI (ST elevation myocardial infarction) Assessment and Plan: S/p Angioplasty and Stent of mid LAD. No new complaints. Right groin no bleeding or hematoma. Continue DAPT. Risk factor modification. Beta blockers and MARCOS-I Status: Acute (2) Uncontrolled hypertension Assessment and Plan: BP not well controlled. Increase beta blockers. May need adjustment in antihypertensive regimen as out patient. Discussed with team and patient. Status: Acute Objective - Vital Signs/Intake and Output Vital Signs (last 24 hours): Temp Pulse Resp BP Pulse Ox 98.1 F 75 11 L 124/74 99 03/24/18 16:00 03/24/18 18:57 03/24/18 18:57 03/24/18 18:57 03/24/18 18:57 Intake and Output: 03/24/18 03/25/18 18:59 06:59 Intake Total 1100 Output Total 1000 Balance 100 - Medications Medications: Current Medications Acetaminophen (Tylenol 325mg Tab) 650 mg PO Q6 PRN PRN Reason: Pain, Mild (1-3) Last Admin: 03/23/18 00:08 Dose: 650 mg Amlodipine Besylate (Norvasc) 10 mg PO DAILY [facility] Last Admin: 03/24/18 11:11 Dose: 10 mg Aspirin (Aspirin Chewable) 81 mg PO DAILY [facility] Last Admin: 03/24/18 09:06 Dose: 81 mg Clonidine HCl (Catapres) 0.1 mg PO TID [facility] Last Admin: 03/24/18 19:13 Dose: Not Given Docusate Sodium (Colace) 100 mg PO BID [facility] Last Admin: 03/24/18 17:19 Dose: 100 mg Famotidine (Pepcid) 20 mg PO BID [facility] Last Admin: 03/24/18 17:19 Dose: 20 mg Hydralazine HCl (Apresoline) 100 mg PO Q8 [facility] Last Admin: 03/24/18 15:08 Dose: Not Given Hydrochlorothiazide (Hydrodiuril) 25 mg PO DAILY [facility] Last Admin: 03/24/18 09:06 Dose: 25 mg Losartan Potassium (Cozaar) 100 mg PO DAILY [facility] Last Admin: 03/24/18 13:05 Dose: 100 mg Metoprolol Tartrate (Lopressor) 50 mg PO BID [facility] Last Admin: 03/24/18 18:00 Dose: 50 mg Minoxidil (Minoxidil) 2.5 mg PO DAILY [facility] Last Admin: 03/24/18 17:24 Dose: Not Given Rosuvastatin Calcium (Crestor) 10 mg PO HS [facility] Last Admin: 03/23/18 23:00 Dose: 10 mg Ticagrelor (Brilinta) 90 mg PO BID [facility] Last Admin: 03/24/18 17:19 Dose: 90 mg - Labs Labs: 03/24/18 06:11 03/24/18 06:09 PT 12.2 SECONDS (9.7-12.2) 03/22/18 19:23 INR 1.1 03/22/18 19:23 APTT 34 SECONDS (21-34) 03/22/18 19:23
--- NOTE | 2018-03-25 08:25 | CP.PCM.PN ---
Subjective - Date & Time of Evaluation Date of Evaluation: 03/25/18 Time of Evaluation: 09:00 - Subjective Subjective: chart review Vitals noted - BP on the high side medication reviewed and adjusted no unusual event patient seen, ambulates no chest painaware of condition further discussion BM urination no complaints medication discsuued BP high discussed Objective - Vital Signs/Intake and Output Vital Signs (last 24 hours): Temp Pulse Resp BP Pulse Ox 98.7 F 79 10 L 148/94 H 98 03/25/18 04:00 03/25/18 05:46 03/25/18 05:46 03/25/18 05:46 03/25/18 05:46 Intake and Output: 03/25/18 03/25/18 06:59 18:59 Intake Total 1480 Output Total 2250 Balance -770 - Medications Medications: Current Medications Acetaminophen (Tylenol 325mg Tab) 650 mg PO Q6 PRN PRN Reason: Pain, Mild (1-3) Last Admin: 03/23/18 00:08 Dose: 650 mg Amlodipine Besylate (Norvasc) 10 mg PO DAILY [facility] Last Admin: 03/24/18 11:11 Dose: 10 mg Aspirin (Aspirin Chewable) 81 mg PO DAILY [facility] Last Admin: 03/24/18 09:06 Dose: 81 mg Docusate Sodium (Colace) 100 mg PO BID [facility] Last Admin: 03/24/18 17:19 Dose: 100 mg Famotidine (Pepcid) 20 mg PO BID [facility] Last Admin: 03/24/18 17:19 Dose: 20 mg Hydralazine HCl (Apresoline) 100 mg PO Q8 [facility] Last Admin: 03/25/18 05:45 Dose: 100 mg Hydrochlorothiazide (Hydrodiuril) 25 mg PO DAILY [facility] Last Admin: 03/24/18 09:06 Dose: 25 mg Losartan Potassium (Cozaar) 100 mg PO DAILY [facility] Last Admin: 03/24/18 13:05 Dose: 100 mg Metoprolol Tartrate (Lopressor) 50 mg PO BID [facility] Last Admin: 03/24/18 18:00 Dose: 50 mg Minoxidil (Minoxidil) 2.5 mg PO DAILY [facility] Last Admin: 03/24/18 17:24 Dose: Not Given Rosuvastatin Calcium (Crestor) 10 mg PO [facility] Last Admin: 03/24/18 22:50 Dose: 10 mg Ticagrelor (Brilinta) 90 mg PO BID [facility] Last Admin: 03/24/18 17:19 Dose: 90 mg - Labs Labs: 03/24/18 06:11 03/24/18 06:09 PT 12.2 SECONDS (9.7-12.2) 03/22/18 19:23 INR 1.1 03/22/18 19:23 APTT 34 SECONDS (21-34) 03/22/18 19:23 - Constitutional Appears: Non-toxic, No Acute Distress - Head Exam Head Exam: ATRAUMATIC - Eye Exam Eye Exam: Normal appearance - ENT Exam ENT Exam: Mucous Membranes Moist - Neck Exam Neck Exam: Full ROM - Respiratory Exam Respiratory Exam: Clear to Ausculation Bilateral, NORMAL BREATHING PATTERN - Cardiovascular Exam Cardiovascular Exam: REGULAR RHYTHM - GI/Abdominal Exam GI & Abdominal Exam: Soft, Normal Bowel Sounds. absent: Tenderness - Extremities Exam Extremities Exam: Full ROM. absent: Pedal Edema - Neurological Exam Neurological Exam: Alert, Awake, Normal Gait, Oriented x3 - Psychiatric Exam Psychiatric exam: Normal Affect, Normal Mood - Skin Skin Exam: Intact, Normal Color Assessment and Plan - Assessment and Plan (Free Text) Assessment: Patient with STEMI post stent- chest pain free Hypertenson- reading getting high , medication adjuestment Cholesterolnemia Further discussionmedication compliance Patient aware plan for home accordingly
[2018-03-25 12:40] VITALS: BP 113/81; PULSE 70; RESP 18; TEMP 97.8; O2SAT 98
--- NOTE | 2018-03-25 16:46 | CP.PCM.PN ---
Subjective - Date & Time of Evaluation Date of Evaluation: 03/25/18 Time of Evaluation: 11:00 - Subjective Subjective: Alert and orientedx3, denies sob or chest pains, NAD. Objective - Vital Signs/Intake and Output Vital Signs (last 24 hours): Temp Pulse Resp BP Pulse Ox 97.8 F 70 18 113/81 98 03/25/18 12:00 03/25/18 12:11 03/25/18 12:11 03/25/18 12:11 03/25/18 12:11 Intake and Output: 03/25/18 03/25/18 06:59 18:59 Intake Total 1480 700 Output Total 2250 Balance -770 700 - Labs Labs: 03/24/18 06:11 03/24/18 06:09 PT 12.2 SECONDS (9.7-12.2) 03/22/18 19:23 INR 1.1 03/22/18 19:23 APTT 34 SECONDS (21-34) 03/22/18 19:23 Assessment and Plan - Assessment and Plan (Free Text) Assessment: 57 year old male s/p cardiac stent placement seen and examined. Alert and orientedx3, denies chest pain or sob. Cleared by DR Zuniga for discharge home on [facility]. Advised to follow up with DR Peterson and DR Zuniga in 1 week.
--- NOTE | 2018-03-25 21:54 | CP.PCM.PN ---
Subjective - Date & Time of Evaluation Date of Evaluation: 03/25/18 Time of Evaluation: 10:10 - Subjective Subjective: Patient seen and evaluated Denies chest pain and dyspnea Physical Exam - Head Exam Head Exam: NORMOCEPHALIC - Neck Exam Neck exam: Positive for: Normal Inspection - Respiratory Exam Respiratory Exam: NORMAL BREATHING PATTERN - Cardiovascular Exam Cardiovascular Exam: REGULAR RHYTHM - Extremities Exam Extremities exam: Positive for: normal inspection - Neurological Exam Neurological exam: Oriented x3 Assessment & Plan (1) STEMI (ST elevation myocardial infarction) Assessment and Plan: S/p Angioplasty and Stent of mid LAD. No new complaints. Right groin no bleeding or hematoma. Continue DAPT. Risk factor modification. Beta blockers and MARCOS-I Status: Acute (2) Hypertension Assessment and Plan: BP controlled. D/C home today and f/u with my office in 1-2 weeks Objective - Vital Signs/Intake and Output Vital Signs (last 24 hours): Temp Pulse Resp BP Pulse Ox 97.8 F 70 18 113/81 98 03/25/18 12:00 03/25/18 12:11 03/25/18 12:11 03/25/18 12:11 03/25/18 12:11 Intake and Output: 03/25/18 03/26/18 18:59 06:59 Intake Total 700 Balance 700 - Labs Labs: 03/24/18 06:11 03/24/18 06:09 PT 12.2 SECONDS (9.7-12.2) 03/22/18 19:23 INR 1.1 03/22/18 19:23 APTT 34 SECONDS (21-34) 03/22/18 19:23
--- NOTE | 2018-03-26 08:23 | CP.PCM.DIS ---
Provider - Provider Date of Admission: 03/22/18 19:44 Attending physician: Lesly Goins MD Consults: 03/23/18 09:59 Cardiology Consult Stat Comment: Consulting Provider: Bogdan Barrett Consulting Physician: Bogdan Barrett Reason for Consult: [place] 03/24/18 11:49 Cardiology Consult Routine Comment: Consulting Provider: Jose Zuniga Consulting Physician: Jose Zuniga Reason for Consult: s/p code heart Time Spent in preparation of Discharge (in minutes): 30 Hospital Course - Lab Results Lab Results: Micro Results 03/23/18 00:11 Nose MRSA Culture (Admit) - Final MRSA NOT DETECTED Most Recent Lab Values WBC 11.1 K/uL (4.8-10.8) H 03/24/18 06:11 RBC 4.45 Mil/uL (4.40-5.90) 03/24/18 06:11 Hgb 13.3 g/dL (12.0-18.0) 03/24/18 06:11 Hct 39.9 % (35.0-51.0) 03/24/18 06:11 MCV 89.6 fL (80.0-94.0) 03/24/18 06:11 MCH 29.9 pg (27.0-31.0) 03/24/18 06:11 MCHC 33.4 g/dL (33.0-37.0) 03/24/18 06:11 RDW 13.3 % (11.5-14.5) 03/24/18 06:11 Plt Count 297 K/uL (130-400) 03/24/18 06:11 MPV 9.0 fL (7.2-11.7) 03/24/18 06:11 Neut % (Auto) 63.5 % (50.0-75.0) 03/24/18 06:11 Lymph % (Auto) 23.4 % (20.0-40.0) 03/24/18 06:11 Otero % (Auto) 10.8 % (0.0-10.0) H 03/24/18 06:11 Eos % (Auto) 1.6 % (0.0-4.0) 03/24/18 06:11 Baso % (Auto) 0.7 % (0.0-2.0) 03/24/18 06:11 Neut # (Auto) 7.0 K/uL (1.8-7.0) 03/24/18 06:11 Lymph # (Auto) 2.6 K/uL (1.0-4.3) 03/24/18 06:11 Otero # (Auto) 1.2 K/uL (0.0-0.8) H 03/24/18 06:11 Eos # (Auto) 0.2 K/uL (0.0-0.7) 03/24/18 06:11 Baso # (Auto) 0.1 K/uL (0.0-0.2) 03/24/18 06:11 PT 12.2 SECONDS (9.7-12.2) 03/22/18 19:23 INR 1.1 03/22/18 19:23 APTT 34 SECONDS (21-34) 03/22/18 19:23 Sodium 137 mmol/L (132-148) 03/24/18 06:09 Potassium 3.6 mmol/L (3.6-5.2) 03/24/18 06:09 Chloride 101 mmol/L (98-107) 03/24/18 06:09 Carbon Dioxide 26 mmol/L (22-30) 03/24/18 06:09 Anion Gap 14 (10-20) 03/24/18 06:09 BUN 17 mg/dL (9-20) 03/24/18 06:09 Creatinine 0.9 mg/dL (0.8-1.5) 03/24/18 06:09 Est GFR ( Amer) > 60 03/24/18 06:09 Est GFR (Non-Af Amer) > 60 03/24/18 06:09 Random Glucose 97 mg/dL (75-110) 03/24/18 06:09 Calcium 8.4 mg/dl (8.6-10.4) L 03/24/18 06:09 Phosphorus 3.6 mg/dL (2.5-4.5) 03/24/18 06:09 Magnesium 1.9 mg/dL (1.6-2.3) 03/24/18 06:09 Total Bilirubin 0.5 mg/dL (0.2-1.3) 03/24/18 06:09 AST 27 U/L (17-59) 03/24/18 06:09 ALT 28 U/L (21-72) 03/24/18 06:09 Alkaline Phosphatase 101 U/L (38-126) 03/24/18 06:09 Total Creatine Kinase 100 U/L (55-170) 03/22/18 17:34 CK-MB (Mass) 3.25 ng/mL (0.0-3.38) 03/22/18 17:34 Troponin I 9.3200 ng/mL (0.00-0.120) H* 03/23/18 05:35 NT-Pro-B Natriuret Pep 439 pg/mL (0-900) 03/22/18 17:34 Total Protein 6.2 g/dL (6.3-8.3) L 03/24/18 06:09 Albumin 3.6 g/dL (3.5-5.0) 03/24/18 06:09 Globulin 2.6 gm/dL (2.2-3.9) 03/24/18 06:09 Albumin/Globulin Ratio 1.4 (1.0-2.1) 03/24/18 06:09 Blood Type O POSITIVE 03/22/18 20:11 Antibody Screen Negative 03/22/18 20:11 - Hospital Course Hospital Course: admitted due to chest pain- found to have elevated troponins, code heart was called, cath and stent done subsequently/ medication adjustmen. BP medicationadjustment- remained chest pain free, stable and send home with follow ups Discharge Exam - Head Exam Head Exam: ATRAUMATIC - Eye Exam Eye Exam: Normal appearance - ENT Exam ENT Exam: Mucous Membranes Moist - Neck Exam Neck exam: Full Rom - Respiratory Exam Respiratory Exam: Clear to PA & Lateral, NORMAL BREATHING PATTERN - Cardiovascular Exam Cardiovascular Exam: REGULAR RHYTHM - GI/Abdominal Exam GI & Abdominal Exam: Normal Bowel Sounds, Soft. absent: Tenderness - Extremities Exam Extremities exam: full ROM - Neurological Exam Neurological exam: Alert, Normal Gait, Oriented x3 - Psychiatric Exam Psychiatric exam: Normal Affect, Normal Mood - Skin Skin Exam: Intact, Normal Color Discharge Plan - Discharge Medications Prescriptions: Metoprolol Succinate XL [Toprol XL] 50 mg PO DAILY #30 tab - Follow Up Plan Condition: CRITICAL Disposition: HOME/ ROUTINE Instructions: Heart Attack (DC), Ticagrelor, Metoprolol, Hypertension (DC), Hypertension (GEN) Additional Instructions: Heart Healthy Diet, Activity as tolerated
== END 2018-03-25 15:27 | disposition home or self-care (01) | DRG 247 ==
LOC: C.ER 16:46 → C.9E 19:44 → C.9I 20:47
PROVIDERS: ADMIT Internal Medicine; ATTEND Internal Medicine
PROC: 027035Z Dilation of Coronary Artery, One Artery with Two Drug-eluting Intraluminal Devices, Percutaneous Approach (ICD-10-PCS; principal; 2018-03-22)
PROC: 4A023N7 Measurement of Cardiac Sampling and Pressure, Left Heart, Percutaneous Approach (ICD-10-PCS; 2018-03-22)
PROC: B2111ZZ Fluoroscopy of Multiple Coronary Arteries using Low Osmolar Contrast (ICD-10-PCS; 2018-03-22)
PROC: B2151ZZ Fluoroscopy of Left Heart using Low Osmolar Contrast (ICD-10-PCS; 2018-03-22)
DX: I21.3 ST elevation (STEMI) myocardial infarction of unspecified site (principal); T82.855A Stenosis of coronary artery stent, initial encounter; E78.00 Pure hypercholesterolemia, unspecified; I10 Essential (primary) hypertension; E87.6 Hypokalemia; I25.10 Atherosclerotic heart disease of native coronary artery without angina pectoris; Y83.8 Other surgical procedures as the cause of abnormal reaction of the patient, or of later complication, without mention of misadventure at the time of the procedure; M17.10 Unilateral primary osteoarthritis, unspecified knee; Z91.19 Patient's noncompliance with other medical treatment and regimen; Z96.659 Presence of unspecified artificial knee joint; R80.9 Proteinuria, unspecified

== ENCOUNTER 2018-08-29 07:24 | Emergency (ER) | payer BC ==
[2018-08-29] MEDS ORDERED: Iohexol 240 (50 ml) PO STA (08:10)
[2018-08-29] MEDS ORDERED: Sodium Chloride 0.9% 1,000 ML IV STA (08:10)
[2018-08-29] MEDS ORDERED: Iohexol 240 (50 ml) ONE (08:28)
[2018-08-29] MEDS ORDERED: Sodium Chloride 0.9% 1,000 ML ONE (08:28)
[2018-08-29 08:39] LABS: BASO # 0.1 K/uL (0.0-0.2); BASO % 0.5 % (0.0-2.0); EOS # 0.1 K/uL (0.0-0.7); EOS % 0.5 % (0.0-4.0); HEMOGLOBIN 14.1 g/dL (12.0-18.0); LYMPH % 14.9 % (20.0-40.0); MEAN CELL VOLUME 90.2 fL (80.0-94.0); MEAN CORPUSCULAR HEMOGLOBIN 30.9 pg (27.0-31.0); MEAN CORPUSCULAR HGB CONC 34.3 g/dL (33.0-37.0); MEAN PLATELET VOLUME 8.7 fL (7.2-11.7); MONO # 1.2 K/uL (0.0-0.8); MONO % 8.8 % (0.0-10.0); NEUT % 75.3 % (50.0-75.0); RBC 4.57 Mil/uL (4.40-5.90); RED CELL DISTRIBUTION WIDTH 12.8 % (11.5-14.5); WHITE BLOOD COUNT 13.3 K/uL (4.8-10.8)
[2018-08-29 08:46] LABS: INR 1.1; PARTIAL THROMBOPLASTIN TIME 32.2 SECONDS (21-34); PROTHROMBIN TIME 12.5 SECONDS (9.7-12.2)
[2018-08-29 08:52] LABS: ALB/GLOB RATIO 1.6 (1.0-2.1); ALBUMIN 4.4 g/dL (3.5-5.0); ALT/SGPT 23 U/L (21-72); AST/SGOT 18 U/L (17-59); BLOOD UREA NITROGEN 19 mg/dL (9-20); CALCIUM 9.5 mg/dl (8.6-10.4); GFR NON-AFRICAN AMERICAN > 60; LIPASE 48 U/L (23-300)
[2018-08-29] MEDS ORDERED: Iodixanol 320 MG/ML 100 ML BOTTLE IV ONE (09:16)
--- NOTE | 2018-08-29 10:59 | C.PDOC ---
History Of Present Illness 58 y/o male presents to ED complaining of pain to left upper abdomen and above the umbilicus for the past 2-3 days. Reports he does feel nauseous and vomited once at home. He denies vomiting now. Denies diarrhea, back pain, or urinary symptoms. Time Seen by Provider: 08/29/18 07:41 Chief Complaint (Nursing): Abdominal Pain History Per: Patient History/Exam Limitations: no limitations Onset/Duration Of Symptoms: Days Current Symptoms Are (Timing): Still Present Past Medical History Reviewed: Historical Data, Nursing Documentation, Vital Signs Vital Signs: Last Vital Signs Temp 98.8 F 08/29/18 10:39 Pulse 68 08/29/18 10:39 Resp 16 08/29/18 10:39 BP 144/95 H 08/29/18 10:39 Pulse Ox 98 08/29/18 10:39 Primary Care Provider: Lesly Goins - Medical History PMH: HTN Denies: Chronic Kidney Disease - [facility] Procedures DILATION OF 1 COR ART WITH 2 DRUG-ELUT, PERC APPROACH (03/22/18) FLUOROSCOPY OF LEFT HEART USING LOW OSMOLAR CONTRAST (03/22/18) FLUOROSCOPY OF MULT COR ART USING L OSM CONTRAST (03/22/18) MEASURE OF CARDIAC SAMPL & PRESSURE, L HEART, PERC APPROACH (03/22/18) Family History: States: [place] (in Mother at age 46), Hypertension - Social History Hx Tobacco Use: No Hx Alcohol Use: No Hx Substance Use: No - Immunization History Hx Tetanus Toxoid Vaccination: No Hx Influenza Vaccination: No Hx Pneumococcal Vaccination: No Review Of Systems Except As Marked, All Systems Reviewed And Found Negative. Constitutional: Negative for: Fever, Chills Cardiovascular: Negative for: Chest Pain Gastrointestinal: Positive for: Abdominal Pain (left upper abdomen and above umbilicus). Negative for: Nausea, Vomiting, Diarrhea Genitourinary: Negative for: Dysuria, Hematuria Physical Exam - Physical Exam Appears: Non-toxic, No Acute Distress Skin: Warm, Dry Head: Normacephalic Eye(s): bilateral: Normal Inspection Oral Mucosa: Moist Neck: Supple Cardiovascular: Rhythm Regular, No Murmur Respiratory: Normal Breath Sounds, No Rales, No Rhonchi, No Wheezing Gastrointestinal/Abdominal: Soft, Tenderness (LUQ and above umbilicus), No Distention, No Guarding, No Rebound Back: No CVA Tenderness Extremity: Bilateral: Normal Color And Temperature Neurological/Psych: Oriented x3, Normal Speech ED Course And Treatment - Laboratory Results Result Diagrams: 08/29/18 08:27 08/29/18 08:27 Lab Results: PT 12.5 SECONDS (9.7-12.2) H 08/29/18 08:27 INR 1.1 08/29/18 08:27 APTT 32.2 SECONDS (21-34) 08/29/18 08:27 Troponin I < 0.0120 ng/mL (0.00-0.120) 08/29/18 08:27 Total Bilirubin 0.6 mg/dL (0.2-1.3) 08/29/18 08:27 AST 18 U/L (17-59) 08/29/18 08:27 ALT 23 U/L (21-72) 08/29/18 08:27 Alkaline Phosphatase 98 U/L (38-126) 08/29/18 08:27 Total Protein 7.1 g/dL (6.3-8.3) 08/29/18 08:27 Albumin 4.4 g/dL (3.5-5.0) 08/29/18 08:27 Globulin 2.7 gm/dL (2.2-3.9) 08/29/18 08:27 Albumin/Globulin Ratio 1.6 (1.0-2.1) 08/29/18 08:27 Lipase 48 U/L (23-300) 08/29/18 08:27 O2 Sat by Pulse Oximetry: 98 (RA) Pulse Ox Interpretation: Normal - Other Rad CXR X-Ray: Read By Radiologist Interpretation: FINDINGS: LUNGS: Clear. PLEURA: No pneumothorax or pleural fluid seen. CARDIOVASCULAR: No aortic atherosclerotic calcification present. Normal. OSSEOUS STRUCTURES: No significant abnormalities. VISUALIZED UPPER ABDOMEN: Normal. OTHER FINDINGS: None. IMPRESSION: No active disease. - CT Scan/US Abd/Pel CT Other Rad Studies (CT/US): Read By Radiologist, Radiology Report Reviewed CT/US Interpretation: FINDINGS: LOWER THORAX: No evidence of acute pathology. 5 millimeter calcified granuloma in the right lung base is noted. The heart is mildly enlarged. LIVER: Mild hepatomegaly and exlo-my-rycohwih hepatic steatosis are noted. GALLBLADDER AND BILE DUCTS: That has post cholecystectomy. PANCREAS: Unremarkable. No gross lesion or ductal dilatation. SPLEEN: Unremarkable. ADRENALS: Unremarkable. No mass. KIDNEYS AND URETERS: No evidence of obstructing renal calculi. There are bilateral small low- attenuation cortical cyst seen. Mild left hydronephrosis is noted. No evidence of obstructing left ureteral calculus noted in this exam. No evidence of significant perinephric stranding. VASCULATURE: Unremarkable. No aortic aneurysm. No aortic atherosclerotic calcification or mural plaque present. BOWEL: Unremarkable. No obstruction. No gross mural thickening. APPENDIX: Normal appendix. PERITONEUM: Unremarkable. No free fluid. No free air. LYMPH NODES: Unremarkable. No enlarged lymph nodes. BLADDER: Unremarkable. REPRODUCTIVE: The prostate is mildly enlarged. BONES: No acute fracture. OT HER FINDINGS: None. IMPRESSION: Mild left hydronephrosis without evidence of obstructing calculus. Findings could be due to recently passed of small calculus. No evidence of significant perinephric stranding. Bilateral small renal cyst. No evidence of pancreatitis or appendicitis. Nonspecific prominent periaortic lymph nodes. Progress Note: Abd/Pel CT, EKG, chest XR, and labs ordered. Patient given IV fluids and zofran. Disposition - Disposition Referrals: Misbah Locke MD [Staff Provider] - Disposition: HOME/ ROUTINE Disposition Time: 13:22 Condition: IMPROVED Additional Instructions: Follow up with PMD and Urologist within 1-2d ays. Return to ED if feel worse. Instructions: Renal Colic (DC) Forms: [facility] ([place]) - Clinical Impression Clinical Impression: Renal colic on left side - PA / DIRECTOR SCRIPT / Resident Statement MD/DO has reviewed & agrees with the documentation as recorded. - Scribe Statement The provider has reviewed the documentation as recorded by the Scribe Marii Bhatt All medical record entries made by the Yairibconnor were at my direction and personally dictated by me. I have reviewed the chart and agree that the record accurately reflects my personal performance of the history, physical exam, medical decision making, and the department course for this patient. I have also personally directed, reviewed, and agree with the discharge instructions and disposition.
--- NOTE | 2018-08-29 11:00 | RAD ---
Date of service: 08/29/2018 PROCEDURE: CHEST RADIOGRAPH, 1 VIEW HISTORY: abd pain COMPARISON: 03/22/2018 FINDINGS: LUNGS: Clear. PLEURA: No pneumothorax or pleural fluid seen. CARDIOVASCULAR: No aortic atherosclerotic calcification present. Normal. OSSEOUS STRUCTURES: No significant abnormalities. VISUALIZED UPPER ABDOMEN: Normal. OTHER FINDINGS: None. IMPRESSION: No active disease.
--- NOTE | 2018-08-29 11:40 | CT ---
Date of service: 08/29/2018 PROCEDURE: CT Abdomen and Pelvis with contrast HISTORY: upper and LUQ abd pain, vomiting COMPARISON: None. TECHNIQUE: Contrast dose: 100 mL of Visipaque 320 intravenously. Radiation dose: Total exam DLP = 1042.38 mGy-cm. This CT exam was performed using one or more of the following dose reduction techniques: Automated exposure control, adjustment of the mA and/or kV according to patient size, and/or use of iterative reconstruction technique. FINDINGS: LOWER THORAX: No evidence of acute pathology. 5 millimeter calcified granuloma in the right lung base is noted. The heart is mildly enlarged. LIVER: Mild hepatomegaly and [id number] hepatic steatosis are noted. GALLBLADDER AND BILE DUCTS: That has post cholecystectomy. PANCREAS: Unremarkable. No gross lesion or ductal dilatation. SPLEEN: Unremarkable. ADRENALS: Unremarkable. No mass. KIDNEYS AND URETERS: No evidence of obstructing renal calculi. There are bilateral small low-attenuation cortical cyst seen. Mild left hydronephrosis is noted. No evidence of obstructing left ureteral calculus noted in this exam. No evidence of significant perinephric stranding. VASCULATURE: Unremarkable. No aortic aneurysm. No aortic atherosclerotic calcification or mural plaque present. BOWEL: Unremarkable. No obstruction. No gross mural thickening. APPENDIX: Normal appendix. PERITONEUM: Unremarkable. No free fluid. No free air. LYMPH NODES: Unremarkable. No enlarged lymph nodes. BLADDER: Unremarkable. REPRODUCTIVE: The prostate is mildly enlarged. BONES: No acute fracture. OTHER FINDINGS: None. IMPRESSION: Mild left hydronephrosis without evidence of obstructing calculus. Findings could be due to recently passed of small calculus. No evidence of significant perinephric stranding. Bilateral small renal cyst. No evidence of pancreatitis or appendicitis. Nonspecific prominent periaortic lymph nodes.
[2018-08-29 13:31] VITALS: BP 139/82; PULSE 78; RESP 20; TEMP 98.2
[2018-08-29 18:09] VITALS: O2SAT 98
== END 2018-08-29 13:30 | disposition home or self-care (01) ==
LOC: C.ER 07:24
DX: N23 Unspecified renal colic (principal)
CPT/HCPCS: 71045; 74177; 80053; 83690; 84484; 85025; 85610; 85730; 96361; 96374; 96375; 99284; C9113; J2405; J7030; Q9966; Q9967